=== PATIENT | female | born 1955 | race Caucasian/White ===

== ENCOUNTER 2025-07-06 09:53 | Outpatient (AMB) | payer MEDICARE, OTHER, SELFPAY ==
[2025-07-06 10:12] VITALS: BMI 24.0
--- NOTE | 2025-07-06 10:12 | HO.SPINEOV ---
Vital Signs 07/06/25 10:12 Height 5 ft 4 in Weight 140 lb BMI 24.0 Intake Visit Reasons: LBP Intake Note: Mrs. Mohan is here today c/o Low back pain that radiates down the right groin, knee and foot causing tingling. 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 Esposito Thank you for referring Janett to our office today. 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 She reports that it is worse on the right than on the left but it is bilateral. There is a component of pain that will radiate into her right groin, and toward her right knee. She will occasionally get some numbness of the top of her foot. The patient has been through copious amounts of conservative treatment through the years including injections at your office, multiple rounds of physical therapy as well the Celebrex. She does not report any meaningful improvement in the pain from the injections with the exception of possibly some epidural steroid injections that were done early in the process. Recent SI joint injection was no relief. Possibly some relief from the radiofrequency ablations at L4-5. The patient is frustrated because her quality of life is suffering. She tries to walk her dogs with her but can barely get through it. Sleeping, sitting and generally activity in any way shape perform will elicit the pain. PMH: History of rheumatoid arthritis which is managed with Arava and Celebrex, history of migraines, remote history of a TIA that has thought was possibly secondary to atrial fibrillation that was seen on a Holter monitor, so she was placed on Eliquis as a precaution. She has a mild peripheral neuropathy. History of left knee replacement, hysterectomy, right shoulder surgery, right thumb, right toe surgery. No history of cardiovascular disease, pulmonary, renal, liver, cancer or major abdominal surgeries. Social hx: Does not smoke, drink, occasionally uses marijuana gummies Medications: Celebrex, Cymbalta, Eliquis, Lipitor, Qulipta, Arava Allergies: None Physical exam: Awake alert oriented no acute distress, patient is able to ambulate in the hallways without any obvious antalgia, strength and reflexes are normal. She does have some pain with manipulation of the right hip. Imaging review: Lumbar MRI done at [facility] in February of 2025 reveals moderate to severe degenerative disc disease at L2-3 and L4-5. L4-5 I would rate his actually looking more toward the severe side of things. There is no significant central canal stenosis. There maybe some slight right sided L3-4 lateral recess stenosis. 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 She also has a component of radiculopathy down the right leg into the knee, groin and sometimes even into the top of the foot. She has been suffering with the pain now for several years, steadily getting worse, having a hard time doing anything for any length of time without it generating significant pain. Even sleeping at night can generate pain. The patient has been through extensive conservative management to no avail. Dr. Giles and I met with her and offered her an oblique lumbar interbody fusion at L4-5, as that level of the spine seems to localize best to her pain descriptions. We quoted success rate at 70%. The patient will have to stop her Eliquis 3 days prior to surgery, and we will stop her Arava prior to surgery as well. She will speak to her security clerk about when she will need to stop that in anticipation of surgery. We have tentatively scheduled her for September 18 The patient was given risk and benefits of [ ]surgery including but not limited to infection, hematoma, nerve injury, durotomy, weakness, bowel/bladder injury, persistent pain, and pseudoarthosis or instrumentation failure. We also discussed the option to continue with conservative treatment and patient wishes to proceed with surgery. They are aware they should stop NSAIDs 7 days prior to surgery. All questions were answered to the best of our ability. If there is anything about this patients medical history that we have overlooked or concerns you have about us proceeding with surgery we would appreciate any input you can offer Thank you for allowing us to care for your patient. The total time spent with this visit with this patient was 45 minutes reviewing history, physical exam, lumbar imaging review, and implementation of treatment plan or further diagnostic testing Gurwinder Giles MD,PhD [facility] Coding Level of Care Code New Pt Level 4 (76670) Diagnoses Back pain M54.9
--- OUTSIDE RECORDS SUMMARY | 2025-07-06 11:27 | XMS_ITS | Clinical Summary ---
Author Organization [facility] Address [address] [address] Phone Care Team Providers Care Pump Assembler Name Role Phone Keiry Au CNP Unavailable Keiry Au CNP Unavailable Keiry Au CNP Primary Care Provider Allergies No known active allergies Medications cholecalciferol , vitamin D3, 400 unit capsule Take 2 capsules by mouth daily. Active atogepant (QULIPTA) 60 mg tabletIndicatio ns:Intractable migraine with aura without status migrainosus Take 1 tablet (60 mg total) by mouth daily. 30 tablet 11 11/03/19 25 Active estradioL (VIVELLE-DOT) 0.025 mg/24 hr APPLY 1 PATCH TOPICALLY ONTO THE SKIN 2 TIMES A WEEK 24 patch 4 11/07/19 25 Active DULoxetine (CYMBALTA) 30 MG capsuleIndicati ons:Current mild episode of major depressive disorder without prior episode TAKE 1 CAPSULE BY MOUTH TWICE A DAY 180 capsule 3 12/05/19 25 Active SUMAtriptan (IMITREX) 100 MG tabletIndicatio ns:Migraine without status migrainosus, not intractable, unspecified migraine type Take 1 tablet (100 mg total) by mouth as needed for migraine. Can repeat dose in 2 hours if needed. Do not exceed 2 doses in a 24 hour period. Max dose 200mg/ day 27 tablet 3 03/12/20 25 Active traZODone (DESYREL) 50 MG tabletIndicatio ns:Psychophysio logic insomnia Take 1-2 tablets (50-100 mg total) by mouth nightly at bedtime. 180 tablet 05/04/20 25 Active celecoxib (CELEBREX) 200 MG capsule TAKE 1 CAPSULE BY MOUTH EVERY DAY 90 capsule 1 05/09/20 25 Active metoprolol tartrate (LOPRESSOR) 25 MG tabletIndicatio ns:Paroxysmal atrial fibrillation TAKE 1 TABLET (25 MG TOTAL) BY MOUTH DAILY NEEDED (HEART IRREGULARITY) . 90 tablet 1 05/28/20 25 Active apixaban (ELIQUIS) 5 mg tablet Take 1 tablet (5 mg total) by mouth 2 (two) times a day. 60 tablet 11 05/31/20 25 026 Active predniSONE (DELTASONE) 2.5 MG tabletIndicatio ns:Seropositive rheumatoid arthritis Take 4 tablets (10 mg total) by mouth daily with breakfast for 5 days, THEN 3 tablets (7.5 mg total) daily with breakfast for 10 days, THEN 2 tablets (5 mg total) daily with breakfast for 15 days. 80 tablet 06/06/20 25 025 Active atorvastatin (LIPITOR) 10 MG tablet Take 1 tablet (10 mg total) by mouth daily. 90 tablet 3 07/02/20 25 Active leflunomide (ARAVA) 20 MG tabletIndicatio ns:Seropositive rheumatoid arthritis Take 1 tablet (20 mg total) by mouth daily. 90 tablet 07/03/20 25 Active atorvastatin (LIPITOR) 10 MG tablet Take 1 tablet (10 mg total) by mouth daily. 90 tablet 03/13/20 25 025 Discontinued(R eorder) leflunomide (ARAVA) 20 MG tabletIndicatio ns:Seropositive rheumatoid arthritis Take once daily with food as follows: One half tab x4 days, then increase to 1 full tab thereafter 30 tablet 05/09/20 25 025 Discontinued leflunomide (ARAVA) 20 MG tabletIndicatio ns:Seropositive rheumatoid arthritis Take 1 tablet (20 mg total) by mouth daily. 30 tablet 06/08/20 25 025 Discontinued Active Problems Problem Noted Date Diagnosed Date Thumb pain, left 05/28/2025 Assessment & Plan (05/28/2025 10:43 AM EDT): Basilar left thumb pain present since at least 07/2024, worsening in severity. Exam findings today somewhat atypical with respect to site of maximal tenderness localized to the palmar aspect of the joint. Intra-articular steroid injection given chronicity and severity of pain. Will obtain updated plain film pending clinical course. Aortic ectasia 04/11/2025 Overview (04/11/2025): Ascending aortic ectasia, measuring 4.[address] chest in 03/2025 Mild sleep apnea 10/14/2024 Assessment & Plan (10/14/2024 6:34 AM EST): Continue CPAP. Cognitive changes 10/14/2024 Assessment & Plan (10/14/2024 6:39 AM EST): Patient has been struggling with some mild cognitive changes, for which she recently underwent follow up neuropsychiatric testing showing borderline MCI. She is starting treatment for sleep apnea, planning on addressing mild hearing loss with loan documentation specialist, and will do trial increase of antidepressant. We discussed repeating memory testing in 2 years as follow up. Patient verbalizes understanding and in agreement with plan. Episode of dizziness 10/14/2024 Assessment & Plan (10/14/2024 6:43 AM EST): Patient reporting 6-8 episodes of dizziness, feeling hot/sweaty, and nauseous while walking over the past year. Patient is very active on a regular basis, working out at the gym, without regular occurrence of these symptoms. She denies any association with fluid intake or eating habits. Cardiac work up in 06/2021 was unremarkable, including echocardiogram showing no aortic stenosis. Will monitor for now, but may consider repeating echocardiogram and carotid ultrasound evaluation if symptoms continuing. Sicca syndrome 02/03/2024 Overview (02/05/2025): ? Secondary Sjogren's SSA/SSB negative/negative 01/2024 Encounter for monitoring leflunomide therapy 01/2024 Overview (08/04/2024): Sarilumab 03/2021 to current Quant TB neg 01/2024 HBV/HCV NR 2015 Assessment & Plan (05/28/2025 10:44 AM EDT): Nausea mitigated by p.m. dosing. Premature to assess efficacy of leflunomide after only approximately 3 weeks. Patient is aware of need for routine monitoring labs in approximately 1 week. Assessment & Plan (08/04/2024 1:39 PM EST): No symptomatic AEs of current sarilumab regimen; routine monitoring labs due late July. Will update HBV / HCV serologies. Assessment & Plan (02/03/2024 2:17 PM EDT): No symptomatic AEs of sarilumab other than oral ulcers - patient declined rx for magic mouthwash today. Updated medication monitoring labs. Right buttock pain 10/14/2021 Assessment & Plan (10/14/2024 6:46 AM EST): Patient continues to struggling with right buttock pain. Will evaluate further with imaging of hip and SI joint; f/u once imaging results are back. Patient verbalizes understanding and in agreement with plan. Assessment & Plan (10/14/2021 7:09 PM EST): Piriformis syndrome versus SI joint dysfunction. We will plan on placing referral to physical therapy for further evaluation and treatment. If worsening or not improving with therapy, may consider further imaging and referral to physiatry. Hiatal hernia with GERD 07/11/2021 Assessment & Plan (10/14/2024 6:32 AM EST): Stable, off therapies. Continue to monitor and could consider starting H2 reza if symptoms are worsening. Assessment & Plan (10/01/2023 5:54 PM EST): Episodes of chest discomfort, likely related to GERD. EKG in office shows a NSR without ectopy or evidence of ischemia. Patient encouraged to start PPI, Prilosec 20 mg daily x 2 weeks. Take first thing in the morning on an empty stomach. Recommend staying upright after drinking coffee during meditation to see if this might reduce heartburn. F/u by phone or PG message in 2 weeks to discuss efficacy of Prilosec. Assessment & Plan (10/14/2021 7:10 PM EST): Recent bout of chest discomfort, eventually concluded to be related to GERD. Improving at this point and patient is weaning off PPI. Continue to monitor and follow-up with gastroenterology for any worsening issues. Current mild episode of major depressive disorde r 09/27/2018 Assessment & Plan (10/14/2024 6:31 AM EST): Some depressed mood, although overall stable. Will do trial of increased Cymbalta 60 mg in the morning and 30 mg in the evening. If no benefit within 1-2 months, could always decrease back down to 30 mg twice daily. Patient verbalizes understanding and in agreement with plan. Assessment & Plan (10/01/2023 5:45 PM EST): Stable on current therapies. Continue Cymbalta at current therapies; trazodone for sleep. Assessment & Plan (09/11/2022 10:36 AM EST): Stable on current therapies. Continue Cymbalta at current therapies. Assessment & Plan (10/14/2021 7:08 PM EST): Stable on current therapies. Continue Cymbalta at current therapies. Assessment & Plan (10/08/2020 6:15 PM EST): Stable on current therapies. Continue Cymbalta at current therapies. Assessment & Plan (10/04/2019 12:43 PM EST): Stable on current therapies. Continue Cymbalta at current therapies. Assessment & Plan (09/27/2018 2:00 PM EST): Stable on current therapies. Continue Cymbalta at current therapies. Encounter for Medicare annual wellness exam 08/31 Assessment & Plan (10/14/2024 6:46 AM EST): Generally well female, despite multiple chronic conditions. Up to date on colonoscopy, bone density testing, and immunizations. Mammogram scheduled for next month. No further pap smears indicated. Advised on healthy diet, regular exercise, and to consume at least 1200 mg Calcium and 2000 iU Vitamin D daily by diet and/or supplementation. Specialists: Dr. Mercado of rheumatology; Dr. Mcdonough of neurology Assessment & Plan (10/01/2023 5:46 PM EST): Generally well female, despite multiple chronic conditions. Up to date on colonoscopy, bone density testing, and immunizations. Follow up mammogram/ultrasound scheduled for next month. No further pap smears indicated. Advised on healthy diet, regular exercise, and to consume at least 1200 mg Calcium and 2000 iU Vitamin D daily by diet and/or supplementation. Assessment & Plan (10/14/2021 7:10 PM EST): Generally well female, despite multiple chronic conditions. Up to date on mammogram, colonoscopy, bone density testing, and immunizations (did discuss that getting a fourth dose of COVID-19 vaccine would be recommended). No further pap smears indicated. Advised on healthy diet, regular exercise, and to consume at least 1200 mg Calcium and 2000 iU Vitamin D daily by diet and/or supplementation. Assessment & Plan (10/08/2020 6:16 PM EST): Generally well female, despite multiple chronic conditions. Up to date on mammogram, colonoscopy, bone density testing, and immunizations. No further pap smears indicated. Advised on healthy diet, regular exercise, and to consume at least 1200 mg Calcium and 2000 iU Vitamin D daily by diet and/or supplementation. Assessment & Plan (10/04/2019 12:30 PM EST): Generally well female, despite multiple chronic conditions. Up to date on mammogram (due in 07/2020), colonoscopy (due in 07/2020), bone density testing (due in 01/2020), and immunizations. No further pap smears indicated. Advised on healthy diet, regular exercise, and to consume at least 1200 mg Calcium and 2000 iU Vitamin D daily by diet and/or supplementation. Assessment & Plan (09/27/2018 2:00 PM EST): Generally well female, despite multiple chronic conditions. Up to date on mammogram, colonoscopy, bone density testing, and immunizations. No further pap smears indicated. Advised on healthy diet, regular exercise, and to consume at least 1200 mg Calcium and 2000 iU Vitamin D daily by diet and/or supplementation. Osteopenia 08/31/2017 Assessment & Plan (10/14/2024 6:26 AM EST): Overall stable with calcium and Vitamin D supplementation, regular weight bearing exercise. Continue Estradiol for bone health. Repeat bone density in 1-2 years. Assessment & Plan (10/01/2023 5:45 PM EST): Encouraged Calcium and Vitamin D supplementation, regular weight bearing exercise. Continue Estradiol. Repeat bone density in 2-3 years. Assessment & Plan (09/11/2022 10:37 AM EST): Encouraged Calcium and Vitamin D supplementation, regular weight bearing exercise. Continue Estradiol. Repeat bone density testing later this month. Assessment & Plan (10/14/2021 7:09 PM EST): Encouraged Calcium and Vitamin D supplementation, regular weight bearing exercise. Continue Estradiol. Repeat bone density testing in 03/2022. If stable, will plan to extend to every 3 year bone density monitoring. Assessment & Plan (10/08/2020 6:15 PM EST): Encouraged Calcium and Vitamin D supplementation, regular weight bearing exercise. Continue Estradiol. Repeat bone density testing in 3 years. Assessment & Plan (10/04/2019 12:44 PM EST): Encouraged Calcium and Vitamin D supplementation, regular weight bearing exercise. Continue Estradiol. Repeat bone density testing in 01/2020. Assessment & Plan (09/27/2018 2:03 PM EST): Encouraged Calcium and Vitamin D supplementation, regular weight bearing exercise. Continue Estradiol. Status post left partial knee replacement 2017 Paroxysmal atrial fibrillation 11/17/2012 Overview (10/20/2014): Atrial fibrillation Assessment & Plan (05/04/2025 6:31 PM EDT): Patient presents to the office with new onset paroxysmal atrial fibrillation, although she did have some episodes many years ago due to dehydration. Patient appears to be in a normal rhythm based on auscultation in the office today. She was placed on dronedarone for rhythm control, although she has developed a pretty significant side effects of nausea. At this point, would recommend discontinuing the dronedarone and providing a course of as needed metoprolol tartrate to be used as needed for sustained episodes of atrial fibrillation. We may need to consider another rate/rhythm controlling option based on frequency of atrial fibrillation noted on her MCT, but we are still awaiting the results of her monitor. Patient instructed on as needed metoprolol use, and potential side effects/adverse effects. Continue Eliquis 5 mg twice daily, with [id number] score of 4, so anticoagulation would be recommended (age, sex, history of TIA). Patient is working on getting established with [facility] cardiology, in the meantime we will order echocardiogram to evaluate for structural causes of atrial fibrillation. Patient verbalizes understanding and in agreement with plan. Migraine 07/02/2011 Overview (10/20/2014): migraines Assessment & Plan (10/14/2024 6:28 AM EST): Ongoing issues with frequent migraines, for which patient is taking Ajovy for prevention. Imitrex for abortive therapies. Continue working with Dr. Mcdonough of neurology for migraine managements. Assessment & Plan (10/01/2023 5:44 PM EST): Stable on current therapies of monthly Emgality and amitriptyline at bedtime. Imitrex for abortive therapy is with good effect. Continue current regimen and f/u with Dr. Mcdonough of neurology. Assessment & Plan (09/11/2022 10:36 AM EST): Stable on current therapies of monthly Emgality and amitriptyline at bedtime. Imitrex for abortive therapy is with good effect. Continue current regimen and f/u with Dr. Mcdonough of neurology. Assessment & Plan (10/14/2021 7:08 PM EST): Much improved with current therapies of monthly Emgality and amitriptyline at bedtime. Imitrex for abortive therapy is with good effect. Continue current regimen and f/u with Dr. Mcdonough of neurology. Assessment & Plan (05/29/2021 6:31 PM EDT): No current migraine symptoms Assessment & Plan (10/08/2020 6:14 PM EST): Much improved with current therapies of Emgality and Amitriptyline at bedtime. Continue current regimen and f/u with Dr. Mcdonough of neurology. Assessment & Plan (10/04/2019 12:43 PM EST): Worsening migraines over past year, without improvement despite multiple preventative therapies. Some frequency of migraines likely related to rebound effect of Imitrex. Follow up with Dr. Mcdonough of neurology. Assessment & Plan (09/27/2018 2:02 PM EST): Worsening migraines over past year, although recently started on Aimovig for preventative therapies. Continue Imitrex as needed. Regular follow up by Dr. Mcdonough of neurology. 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 01/2023 and dc'd d/t neutropenia Upadacitinib 09/2024 to 03/2025 -persistent / recurrent neutropenia. Assessment & Plan (05/08/2025 2:17 PM EDT): More profound fatigue, with 60 to 90 minutes morning stiffness, now off Biju inhibitor approximately 2 weeks due to persistent/recurrent neutropenia. There is no synovitis on exam today. Given the course of her disease and medication history to date, she is at risk of progressively active disease if she remains off treatment long-term. We discussed options today, including implantation of the newly approved set point device, as well as leflunomide. She will review information regarding the set point device, and will contact me if she would like to proceed with referral to [facility] for implantation. Otherwise, we will proceed with leflunomide. Assessment & Plan (02/05/2025 1:46 PM EDT): Overall low disease activity despite 1 hour of morning stiffness, which is unchanged. No current clinical evidence concerning for extra-articular disease other than baseline mild peripheral sensory neuropathy. No current indication to change upadacitinib to alternative DMARD. Assessment & Plan (10/14/2024 6:25 AM EST): Continue current regimen of Kevzara and Celebrex, with occasional Tylenol for pain. Followed closely by Dr. Mercado, particularly in relation to neutropenia related to immunosuppressant use. Patient is experiencing some left wrist pain from RA flare, but is managing conservatively and will f/u with rheumatology as needed. Assessment & Plan (08/04/2024 1:37 PM EST): Overall low disease activity on current regimen of sarilumab every 3 wks, which has not resulted in significant neutropenia. Recent flare (last wk) noted but this resolved within 3 days when she increased her celecoxib dose; no flares prior to that for at least several years. She has been able to maintain good functional capacity and engages in regular aerobic exercise. Declined intra-articular steroid injection to both right shoulder and left 1st CMC today. Given both current clinical picture and above-documented medication hx to date, I d/w her that I strongly recommend she continue on sarilumab rather than switching to a biosimilar agent of a drug she has previously tried and failed due to planned 2024 change in her insurance company formulary. I have drafted a letter in this regard. Assessment & Plan (02/03/2024 2:18 PM EDT): One hour AM stiffness with otherwise overall low disease activity on current regimen of sarilumab and celecoxib, w/o e/o extra-articular disease. Sarilumab dosing limited to every 3 wks due to neutropenia with more frequent dosing. Records from former instrument lens grinder reviewed briefly today; will obtain baseline anti-CCP and updated inflammatory markers. Co-morbid secondary osteoarthritis of multiple joints, notably MTPs and right wrist. Assessment & Plan (10/01/2023 5:44 PM EST): Relatively stable on current regimen of Kevzara and Celebrex, although she would like to transition care more locally. Referral placed to Dr. Mercado of [facility]. Assessment & Plan (09/11/2022 10:36 AM EST): Currently taking Kevzara and Celebrex. Closely monitored by Dr. Cain of rheumatology. Assessment & Plan (10/14/2021 7:08 PM EST): Stable, currently taking Kevzara and Celebrex. Closely monitored by Dr. Cain of rheumatology. Assessment & Plan (10/08/2020 6:14 PM EST): Recently worsening issues with RA flare related difficulty finding immunobiologic that is manages her symptoms without adverse effects. Hopeful that Rituximab may be more beneficial that Xeljanz. Continue close monitoring by Dr. Lane. We did discuss potential referral to [facility] or [facility] but for now she would like to continue with local instrument lens grinder. Assessment & Plan (10/04/2019 12:42 PM EST): Stable on current therapies, although recently worsening neutropenia requiring decreasing frequency of biologic agent. Repeat complete blood count next month and f/u with Dr. Lane as scheduled. Assessment & Plan (09/27/2018 2:03 PM EST): Stable on current therapies. Continue f/u with Dr. Lane as scheduled. Assessment & Plan (08/31/2018 11:20 AM EST): Hold Acterma until cellulitis of toe is ruled out. F/u with Dr. Lane of rheumatology as scheduled. Resolved Problems Problem Noted Date Diagnosed Date Resolved Date Cerumen impaction 11/01/2023 10/14/2024 Preop examination 09/11/2022 10/01/2023 Assessment & Plan (09/11/2022 10:51 AM EST): Generally well female. EKG in office shows a NSR without ectopy or evidence of ischemia. Lab work pending. Relatively safe and low risk for complications related to surgery and general/local anesthesia. Will fax paperwork to Dr. Schroeder. Chest pain 05/29/2021 10/14/2021 Assessment & Plan (07/11/2021 1:55 PM EST): She reports continued chest pain despite having an emergency room visit and having negative cardiac enzymes and normal EKG. She did have an exercise tolerance stress test which was unremarkable however she did have some chest pain during her test which made it abnormal. Seeing as how she continues to have chest discomfort with exertion particularly with being at the gym and climbing hills in addition to when she lays flat we will perform a nuclear exercise stress test to rule out any ischemia. I have asked her to continue to take Pepcid nightly for the next 2 weeks to see if this helps with any of her discomfort in the meantime while she is waiting for her stress test. I have also asked her to hold off on exercising until her test has been completed. Assessment & Plan (05/30/2021 10:50 AM EDT): Hours of chest pain with negative cardiac enzymes and normal EKG, accounts adjustable clerk felt patient's pain was noncardiac in etiology. Questions whether this may be musculoskeletal. Exercise tolerance test unremarkable. If patient has exertional chest symptoms could get a more sensitive test like a stress echo or nuclear stress test and accounts adjustable clerk has arranged for follow-up in his office in 1 month Radicular pain of right lower extremity 10/04/2019 10/14/2021 Assessment & Plan (10/04/2019 12:45 PM EST): Radicular pain of right knee and lower leg. Slow improvements with SI joint injection and physical therapy. Follow up with ALEXSANDER Mortensen at [facility] as needed. Left shoulder pain 11/10/2018 0 Cellulitis of toe of right foot 08/31/2018 09/27/2018 Assessment & Plan (08/31/2018 11:20 AM EST): History of right great toe cellulitis, treated by instrument lens grinder with Doxycycline. Residual symptoms of redness and tenderness of area. Will do referral to transition mgr rn for urgent appointment, particularly due to history of immunosuppressant use for RA. F/u in office as needed. Pt verbalizes understanding and in agreement with plan. PAT (paroxysmal atrial tachycardia) 08/31/2017 09/11/2022 Assessment & Plan (10/14/2021 7:07 PM EST): Stable, off therapies. No recent episodes of tachycardia reported. Assessment & Plan (05/30/2021 10:51 AM EDT): Noted history in the chart from 2014 of atrial fibrillation No evidence of arrhythmia on phototypesetting equipment monitor Assessment & Plan (10/08/2020 6:10 PM EST): Stable, off therapies. No recent episodes of tachycardia reported. Assessment & Plan (10/04/2019 12:40 PM EST): Stable, off therapies. No recent episodes of tachycardia reported. Assessment & Plan (09/27/2018 2:05 PM EST): Stable, off therapies. Depression with anxiety 08/31/201709/30 Left knee pain 08/31/2017 09/27/2018 Dyslipidemia 11/17/2012 10/14/2021 Overview (10/20/2014): Dyslipidemia Assessment & Plan (05/30/2021 10:51 AM EDT): LDL borderline at 104, follow-up with cardiology, HDL 77. Assessment & Plan (10/08/2020 6:11 PM EST): Recent lipid panel normal, with total cholesterol of 228 and HDLs of 80. Overall cardiovascular risk is low. Continue regular exercise and healthy eating. Assessment & Plan (10/04/2019 12:41 PM EST): Most recent lipid panel from 02/2019. Elevated LDLs and total cholesterol, but also with elevated HDLs. Only risk factor is her autoimmune rheumatoid arthritis. No stigmata of disease. The 10-year ASCVD risk score (Erieville BREANNA Jr., et al., 2013) is: 3.4% Values used to calculate the score: Age: 64 years Sex: Female Is Non- : No Diabetic: No Tobacco smoker: No Systolic Blood Pressure: 112 mmHg Is BP treated: No HDL Cholesterol: 92 mg/dL Total Cholesterol: 246 mg/dL Assessment & Plan (09/27/2018 2:04 PM EST): Elevated LDLs and total cholesterol, but also with elevated HDLs. Only risk factor is her autoimmune rheumatoid arthritis. No stigmata of disease. ASCVD/AHA risk ratio of 3.3%. Repeat fasting lipid in 6 months. Peripheral nerve disease 07/02/201112/2019 Overview (08/31/2017): peripheral neuropathy Assessment & Plan (09/27/2018 2:01 PM EST): Stable, off therapies. Pt encouraged to check feet regularly for open sores or wounds. Articular cartilage disorder of knee 09/27/2018 Encounters Date Type Department Care Team Description 07/02/2025 Refill [facility] Rheumatology [address] [place] [address] Smiley De Leon MD Med Change Request 07/02/2025 Refill [facility] Internal Medicine [address] [place] [address] [address] [place] [address] Ghazala De La Rosa CMA Medication Refill (Atorvastatin) 06/19/2025 12:30 PM EDT Office Visit [facility] Neurology [address] [place] [address] [place] [address] Arnaldo Mcdonough MD Intractable migraine with aura without status migrainosus (Primary Dx); Amaurosis fugax; Atrial fibrillation, unspecified type 06/13/2025 Orders Only [facility] Rheumatology [address] [place] [address] Carla Mercado MD, MPH Encounter for monitoring leflunomide therapy (Primary Dx) 06/08/2025 9:18 AM EDT - 06/08/2025 11:59 PM EDT Hospital Encounter [facility] Echo Lab [address] [place] [address] Keiry Au CNP Discharge Disposition: Home or Self Care 06/07/2025 7:54 AM EDT - 06/07/2025 11:59 PM EDT Hospital Encounter [address] [address] Keiry Au CNP Discharge Disposition: Home or Self Care 06/07/2025 Refill [facility] Rheumatology [address] [place] [address] [place] [address] Carla Mercado MD, MPH Medication Refill 05/31/2025 Refill [facility] Internal Medicine [address] [address] Ghazala De La Rosa CMA Medication Refill (Eliquis) 05/30/2025 1:24 PM EDT - 05/30/2025 4:02 PM EDT Emergency [facility] Emergency [address] [place] [address] Jean Garcia MD Discharge Disposition: Home or Self Care 05/30/2025 Telephone [facility] Internal Medicine [address] [address] Keiry Au CNP [place] SOB 05/28/2025 10:10 AM EDT Office Visit [facility] Rheumatology [address] [place] [address] [place] [address] Carla Mercado MD, MPH Thumb pain, left (Primary Dx); Encounter for monitoring leflunomide therapy 05/28/2025 Telephone [facility] Rheumatology [address] [place] [address] Carla Mercado MD, MPH Injections 05/27/2025 Refill [facility] Internal Medicine [address] [address] Keiry Au CNP Med Change Request 05/09/2025 Refill [facility] Rheumatology [address] [place] [address] Carla Mercado MD, MPH Medication Refill 05/08/2025 1:40 PM EDT Office Visit [facility] Rheumatology [address] [place] [address] Carla Mercado MD, MPH Seropositive rheumatoid arthritis (Primary Dx) 05/07/2025 Orders Only [facility] Internal Medicine [address] [address] Taylor Lockett MD 05/04/2025 4:40 PM EDT Office Visit [facility] Internal Medicine [address] [place] [address] Keiry Au CNP Paroxysmal atrial fibrillation (Primary Dx); Medication side effect; Psychophysiologic insomnia 05/04/2025 Procedure Pass [facility] Echo Lab [address] [place] [address] 05/02/2025 Telephone [facility] Internal Medicine [address] [address] Keiry Au CNP IN E[place] yesterday 05/01/2025 5:41 PM EDT - 05/01/2025 9:33 PM EDT Emergency [facility] Emergency [address] [place] [address] Nelson Crowder MD Discharge Disposition: Home or Self Care 05/01/2025 Telephone [facility] Internal Medicine [address] [address] Keiry Au, KAY [place] SOB 05/01/2025 Orders Only [facility] Internal Medicine [address] [place] [address] Taylor Lockett MD 04/26/2025 Telephone [facility] Rheumatology [address] [place] [address] Carla Mercado MD, MPH Appointment 04/19/2025 8:11 AM EDT - 04/19/2025 11:59 PM EDT Hospital Encounter [address] [address] Carla Mercado MD, MPH Discharge Disposition: Home or Self Care 04/17/2025 Orders Only [facility] Internal Medicine [address] [place] [address] Taylor Lockett MD 2025 Telephone [facility] Internal Medicine [address] [place] [address] Keiry Au, KAY [employer] 04/12/2025 Orders Only [facility] Internal Medicine [address] [place] [address] Taylor Lockett MD 04/11/2025 Telephone [facility] Internal Medicine [address] [place] [address] Keiry Au, KAY 04/10/2025 Orders Only [facility] Internal Medicine [address] [place] [address] Taylor Lockett MD 04/09/2025 Telephone [facility] Rheumatology [address] [place] [address] Carla Mercado MD, MPH 04/06/2025 7:56 PM EDT - 04/06/2025 11:59 PM EDT Hospital Encounter [facility] Scan - [facility] [address] [place] [address] Hanna Carlson, APPLICATIONS SYSTEM ANALYST Discharge Disposition: Home or Self Care 03/30/2025 Procedure Pass [facility] Scan - [facility] [address] [place] [address] from Last 3 Months Immunizations Immunization Administration Dates Next Due COVID-19 (Pre-06/21) Moderna Vaccine, mRNA, PF 10/22/2020,09/24/2020 Hepatitis A, Adult 08/06/2016 INFLUENZA, SPLIT VIRUS, TRIVALENT PF 05/22/2015 INFLUENZA, SPLIT VIRUS, TRIV ALENT W/ PRESERVATIVE IM 05/23/2013 Influenza High-Dose Trivalen t Preservative Free IM 06/12/2024,05/16/2021,05/15/2020 Influenza Nasal, Unspecified Formulation 05/09/2014 Influenza Quadrivalent Adjuv anted Preservative Free IM 06/16/2023,06/10/2022 Influenza Quadrivalent Prese rvative Free IM 04/19/2018 Influenza Quadrivalent w/ Pr eservative IM 05/12/2017,05/15/2016 Influenza Recombinant Mauricio valent Preservative Free IM 05/22/2019 Influenza Trivalent Adjuvant ed Preservative free IM 06/05/2025 Influenza, Unspecified Formulation 05/22,05/17/2013,06/04/2011,07/31,10/10/2008(Deferred: Patient Decision) Pneumococcal conjugate PCV13 10/10/2014 Pneumococcal conjugate PCV20 09/11/2022 Pneumococcal polysaccharide PPSV23 08/31,07/17/2009,10/10/2008(Defer red: Patient Decision),07/30/2003,07/30/2003 Pneumococcal, Unspecified Formulation 07/17/2009 ,07/30/2003 RSV Vaccine (monovalent, adjuvanted) 05/25/2023 Td (adult),2 Lf Tetanus Toxo id, PF, Adsorbed 11/28/2006 Tdap 08/31/2017 Typhoid, ViCPs 08/06/2016 Zoster recombinant 12/26/2018,10/27/2018 Family History Medical History Relation Comments Rheumatoid arthritis Brother 1 sepsis Brother 1 Alcohol abuse Brother 2 COPD Brother 2 No Known Problems Brother 3 Alzheimer's disease Father CABG Father Heart disease Father Lung cancer Mother Smoker Alzheimer's disease Paternal Grandmother Hypogonadism Son Osteoporosis Son Relation Status Comments Brother 1 Brother 2 Brother 3 Alive Father (Age 89) Maternal Grandfather Maternal Grandmother Mother (Age 68) Paternal Grandfather Paternal Grandmother Son Alive Social History Tobacco Use Types Packs/Day Years Used Date Smoking Tobacco: Former Cigarettes 0.3 17 0 10/04/1968 - 10/04/1985 Smokeless Tobacco: Never Tobacco Cessation:Counseling Given: Not Answered Alcohol Use Standard Drinks/Week Comments Yes 14 (1 standard drink = 0.6 oz pu re alcohol) 2 drinks per day Education Answer Date Recorded Are you interested in more education? Not on janelle e 12/24/2022 Are you concerned about learning? Not on file 12/24/2022 No 12/24/2022 No 12/24/2022 Food Answer Date Recorded Within the past 6 months we worried whether our food would run out before we got money to buy more. Never True 05/30/2025 Within the past 6 months the food we bought just didn't last and we didn't have enough money to get more. Never True Residential Stability Answer Date Recor ded What is your housing situation today? I have geronimo sing 05/30/2025 How many times have you move d in the past 12 months? Zero (I did not move) 05/30/2025 Paying for Meds Answer Date Recorded Do you have trouble paying for medicines? No 05/30/2025 Paying Utility Bills Answer Date Record ed Do you have trouble paying your heating or elect ricity bill? No 05/30/2025 Transportation Answer Date Recorded Has the lack of transportati on kept you from medical appointments or from getting medications? No 05/30/2025 Digital Access Answer Date Recorded No 05/30/2025 Yes 05/30/2025 Do you have reliable internet access at home? Ye s 05/30/2025 Do you have a device (e.g., phone, tablet, computer) with a working camera? Yes 05/30/2025 Intimate Partner Violence Answer Date R ecorded Are you denied basic needs s uch as food, clothing, or medical care? No 05/30/2025 In the past 12 months have y ou been in a relationship with a person who hurts, threatens, or tries to control you? No 05/30/2025 Are you denied basic needs s uch as food, clothing, or medical care? No 05/30/2025 In the past 12 months have y ou been in a relationship with a person who hurts, threatens, or tries to control you? No 05/30/2025 Education Answer Date Recorded What is the highest level of school you have completed or the highest degree you have received? 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 Not on file Not on file Not on file Last Filed Vital Signs Vital Sign Reading Time Taken Comments Blood Pressure 125/72 05/30/2025 3:30 PM EDT Pulse 56 05/30/2025 3:30 PM EDT Temperature 36.4 C (97.6 F) 05/30/2025 10:23 AM EDT Respiratory Rate 20 05/30/2025 3:30 PM EDT Oxygen Saturation 100% 05/30/2025 3:30 PM EDT Inhaled Oxygen Concentration - - Weight 67.1 kg (148 lb) 05/30/2025 2:11 PM EDT Height 162.6 cm (5' 4 ) 05/30/2025 2:11 PM EDT Body Mass Index 25.4 05/30/2025 2:11 PM EDT Plan of Treatment Upcoming Encounters Date Type Department Care Team (Late st Contact Info) Description 08/07/2025 1:40 PM EST Office Visit [facility] Rheumatology [address] [place] [address] [place] [address] Carla Mercado MD, MPH [address] [facility], [address] [place] [address] [email or web address] 12/27/2025 1:00 PM EDT Office Visit [facility] Neurology [address] [place] [address] [place] [address] Arnaldo Mcdonough MD [address] [place] [address], [address] [place] [address] [email or web address] Health Maintenance Due Date Last Done Comments COLOGUARD 2000 FIT TEST 2000 FOBT 2000 SIGMOIDOSCOPY 2000 VIRTUAL COLONOSCOPY 2000 COVID-19 VACCINE ( season) 2025 06/05/2025, 11/13/2024, 06/12/2024, Additional history exists DEPRESSION SCREENING 10/06/2025 10/06/2024 CREATININE LEVEL 06/07/2026 06/07/2025, 08/2024, 05/01/2025, Additional history exists MAMMOGRAM 11/17/2026 11/17/2024, 03/2024, 09/02/2022, Additional history exists Adult Td,Tdap Booster 08/31/2027 08/31/2017, 007 LIPID PANEL 06/07/2030 06/07/2025, 07/30, 10/11/2023, Additional history exists COLONOSCOPY 09/23/2030 09/23/2020, 08/2009, 07/30/2010 COLORECTAL CANCER SCREENING 09/23/2030 HEPATITIS A VACCINES Aged Out 08/06/2016 No long er eligible based on patient's age to complete this topic ZOSTER VACCINES Completed 12/26/2018, 10/27/2018 PNEUMOCOCCAL VACCINES (50+ years) Completed 09/11/2022, 08/31/2017, 10/10/2014, Additional history exists OSTEOPOROSIS SCREENING INITIAL (ONE-TIME) Completed 09/15/2022, 04/01/2020, 02/23/2018 RSV VACCINE Completed 05/25/2023 SMOKING STATUS SCREENING (Once After 26 Yrs) Completed 05/04/2025 INFLUENZA VACCINE Completed 06/05/2025, , 06/16/2023, Additional history exists HIB VACCINES Aged Out No longer eligi ble based on patient's age to complete this topic MENINGOCOCCAL VACCINES (ACWY) Aged Out No longer eligible based on patient's age to complete this topic MENINGOCOCCAL VACCINES (B) Aged Out N o longer eligible based on patient's age to complete this topic Medical Devices Implanted - Out of Service Type Area Laboratory Worker Device Identifier Shelf Expiration Date Model / Serial / Lot Total Knee Left: Knee Procedures Procedure Name Priority Date/Time Associated Diagnosis Comments CBC AND DIFFERENTIAL Routine 07/04/2025 7:54 AM EST Encounter for monitoring leflunomide therapy CBC AND DIFFERENTIAL Routine 07/04/2025 7:54 AM EST Encounter for monitoring leflunomide therapy TTE COMPREHENSIVE Routine 06/08/2025 10: 23 AM EDT Paroxysmal atrial fibrillation LIPID PANEL Routine 06/07/2025 7:55 AM EDT Amaurosis fugax SEDIMENTATION RATE (ESR) Routine 06/07/2025 7:55 AM EDT Seropositive rheumatoid arthritis C-REACTIVE PROTEIN (CRP) Routine 06/07/2025 7:55 AM EDT Seropositive rheumatoid arthritis COMPREHENSIVE METABOLIC PANEL (CMP) Routine 06/07/2025 7:55 AM EDT Encounter for monitoring leflunomide therapy CREATINE KINASE (CK) Routine 06/07/2025 7:55 AM EDT Encounter for monitoring leflunomide therapy CBC AND DIFFERENTIAL Routine 06/07/2025 7:55 AM EDT Neutropenia, drug-induced D-DIMER STAT 05/30/2025 2:48 PM EDT LAB ADD ON STAT 05/30/2025 2:03 PM EDT TROPONIN STAT 05/30/2025 11:34 AM EDT XR CHEST PA AND LATERAL 2 VIEWS STAT 05/30/2025 11:14 AM EDT NT-PROBNP STAT 05/30/2025 10:43 AM EDT TROPONIN STAT 05/30/2025 10:43 AM EDT BASIC METABOLIC PANEL (BMP) STAT 05/30/2025 10:43 AM EDT CBC AND DIFFERENTIAL STAT 05/30/2025 10:43 AM EDT ECG 12-LEAD STAT 05/30/2025 10:23 AM EDT MCT (MOBILE CARDIAC TELEMETRY) Routine 05/09/2025 3:57 PM EDT Amaurosis fugax OUTSIDE ECG Routine 05/07/2025 4:03 PM EDT D-DIMER STAT 05/01/2025 7:42 PM EDT XR CHEST PA AND LATERAL 2 VIEWS Routine 05/01/2025 7:37 PM EDT TROPONIN STAT 05/01/2025 4:34 PM EDT TSH WITH REFLEX Routine 05/01/2025 3:33 PM EDT NT-PROBNP Routine 05/01/2025 3:33 PM EDT MAGNESIUM Routine 05/01/2025 3:33 PM EDT TROPONIN STAT 05/01/2025 3:33 PM EDT BASIC METABOLIC PANEL (BMP) STAT 05/01/2025 3:33 PM EDT CBC AND DIFFERENTIAL STAT 05/01/2025 3:33 PM EDT ECG 12-LEAD STAT 05/01/2025 2:41 PM EDT OUTSIDE ECG Routine 05/01/2025 11:46 AM EDT CBC AND DIFFERENTIAL Routine 04/19/2025 8:11 AM EDT 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 OUTSIDE ECG Routine 04/17/2025 7:38 AM EDT OUTSIDE ECG Routine 04/12/2025 11:28 AM EDT OUTSIDE ECG Routine 04/10/2025 11:[address] CHEST WITH CONTRAST Routine 04/06/2025 8:11 PM EDT Persistent cough BI MAMMOGRAM SCREENING WITH TOMOSYNTHESIS WITH CAD (BILATERAL) Routine 11/17/2024 4:09 PM EDT Visit for screening mammogram BD DXA AXIAL (SPINE) WITH HIP Routine 09/15/2022 2:54 PM EST Osteopenia of right hip ENDOSCOPY, COLON 09/23/2020 10:1 2 AM EST from Last 3 Months or Most Recently Relevant to Health Maintenance Results * (ABNORMAL) CBC and Differential (07/04/2025 7:54 AM EST) WBC 3.17(L) 4.00 - 11.00 K/uL 07/04/2025 11:33 AM [facility] RBC 4.66 4.00 - 5.20 M/uL 07/04/2025 11:33 AM [facility] Hemoglobin 13.6 12.0 - 16.0 g/dL 07/04/2025 11:33 AM [facility] Hematocrit 42.0 36.0 - 46.0 % 07/04/2025 11:33 AM [facility] MCV 90.1 80.0 - 100.0 fL 07/04/2025 11:33 AM [facility] MCH 29.2 27.0 - 31.0 pg 07/04/2025 11:33 AM [facility] MCHC 32.4 32.0 - 36.0 g/dL 07/04/2025 11:33 AM [facility] MPV 10.5 8.4 - 12.0 fL 07/04/2025 11:33 AM [facility] RDW-CV 12.5 11.5 - 14.5 % 07/04/2025 11:33 AM [facility] PLT 164 150 - 450 K/uL 07/04/2025 11:33 AM [facility] Neutrophils 52.4 % 07/04/2025 11:33 AM [facility] Lymphocytes 31.9 % 07/04/2025 11:33 AM [facility] Monocytes 13.2 % 07/04/2025 11:33 AM [facility] Eosinophils 1.9 % 07/04/2025 11:33 AM [facility] Basophils 0.6 % 07/04/2025 11:33 AM [facility] Imm Grans 0.0 % 07/04/2025 11:33 AM [facility] NRBC 0.0 <=0.0 /100 WBCs 07/04/2025 11:33 AM [facility] Absolute Neutrophils 1.66(L) 1.92 - 7.60 K/uL 07/04/2025 11:33 AM [facility] Comment:The reference range for individuals with the Rai null phenotype (Fy(a-b-)) is 1.21-5.39 K/uL. Absolute Lymphocytes 1.01 0.72 - 4.10 K/uL 07/04/2025 11:33 AM [facility] Absolute Monocytes 0.42 0.16 - 1.10 K/uL 07/04/2025 11:33 AM [facility] Absolute Eosinophils 0.06 0.00 - 0.50 K/uL 07/04/2025 11:33 AM [facility] Absolute Basophils 0.02 0.00 - 0.15 K/uL 07/04/2025 11:33 AM [facility] Absolute Imm Grans 0.00 0.00 - 0.09 K/uL 07/04/2025 11:33 AM [facility] Absolute NRBC 0.00 <=0.00 K cells/uL 07/04/2025 11:33 AM [facility] Absolute Neutrophils 1.66(L) 1.92 - 7.60 K/uL 07/04/2025 11:33 AM [facility] Comment:Automated cell count . Manual ANC may differ if performed. Diff Type Auto 07/04/2025 11:33 AM EST [facility] Blood Venipuncture / Unknown 07/04/2025 7:54 AM EST 07/04/2025 7:54 AM EST us Carla Mercado MD, MPH LAB BLOOD BKR ORDERABLES Final Result [address] [address] * TTE COMPREHENSIVE (06/08/2025 10:23 AM EDT) Body Surface Area 1.72 m2 Height 163 cm Weight 67 kg Systolic BP 125 mmHg Diastolic BP 72 mmHg Left Atrium Dimension Anterior-Posterior 35 15 - 40 mm Aortic Valve Regurgitation Pressure Half Time 702 ms Aortic Valve Peak Velocity 1.3 m/s Aortic Valve Peak Gradient 7 mmHg Aortic Valve Mean Gradient 4 mmHg Aortic Valve Time Velocity Integral 280.0 mm Aortic Arch Diameter 33 mm Aortic Sinus Diameter 30 <40 mm Ascending Aorta Diameter 34 <36 mm Inferior Vena Cava Diameter 18 <21 mm Interventricular Septum Thickness 7 6 - 11 mm Left Ventricle Internal Diameter End Diastole 44 37 - 52 mm Left Ventricle Internal Diameter End Systole 32 <35 mm Left Ventricular Outflow Tract Diameter 19.0 mm LVOT VTI REST 226.0 mm Left Ventricular Outflow Tract Velocity 1.1 m/s Left Ventricular Outflow Tract Gradient at Rest 5 mmHg Left Ventricular Posterior Wall Thickness 11 6 - 11 mm Left Ventricle Ea Lateral Wave Speed 7.4 cm/s Left Ventricle Ea Septal Wave Speed 10.4 cm/s Mitral Valve Deceleration Time 208 ms Ejection Fraction 55 50 - 75 Percent Left Ventricle A Wave Speed 65.5 cm/s Left Ventricle E Wave Speed 57.2 cm/s Right Ventricle Basal Diameter 34 25 - 41 mm Tricuspid Valve Peak Velocity 2.5 m/s Raw LV EF% 47 % MV E/E' Tissue Velocity Lateral 7.73 Relative Wall Thickness 0.50 0.22 - 0.42 Left Ventricle indexed to BSA 74.4 g/m2 MV E/A ratio 0.9 MV E/e' septal 5.50 Left Ventricle E/e' Average 6.6 Aortic Valve Prosthetic Peak Gradient 7 mmHg Aortic Valve Prosthetic Mean Gradient 4 mmHg Aortic Valve Sinus Index by BSA 17 mm/m2 Aorta Sinus Index by Height 1.84 cm/m Aorta Sinus CSA index by Height 4.33 cm2/m Ascending Aorta Index 20 mm/m2 Asc Aorta CSA Index by Height 5.57 cm2/m Right Ventricle to Right Atrium Pressure Gradient 25 mmHg Right Ventricle Peak Systolic Pressure (Assuming RAP 10) 35 mmHg MGB CV ECHO TV RVSP (ASSUMING RAP OF 5) 30 mmHg RVSP (Exclusive of RAP) 25 mmHg MGB CV AV DIMENSIONLESS INDEX (PEAK) - STRESS ECHO DOBUT - REST 0.85 Ascending Aorta Index 20 mm Aortic Sinus Index 17 mm Ascending Aorta Diameter 20 mm Aortic Valve Sinus Index 1 17 19 - 27 mm AO ASC DIAM BSA INDEX 19.77 Echo E/Ea 5.50 Right Ventricle TAPSE 26 >=17 mm Right Ventricle Pulse Doppler S Wave 15.0 >=9.5 cm/s Right Atrium Area 14 cm2 Right Atrium Area index 8 cm2/m2 Right Ventricle Peak Systolic Pressure 28 mmHg Right Atrium Pressure Estimated 3 mmHg Anatomical Region Laterality Modality Heart Ultrasound Narrative 06/08/2025 6:17 PM EDT Images from the original result were not included. - Rhythm is sinus - Normal LV size and systolic function - EF is estimated at 55% There is normal diastolic function present There is normal RV systolic function - Mild aortic valve regurgitation present - Trace tricuspid valve and mitral valve regurgitation present - RVSP calculated at 28 mmHg - No pericardial effusion present - IVC is normal Left Ventricle The left ventricle is normal in size. There is normal wall thickness. There is normal left ventricular systolic function. The LV ejection fraction is 55% (calculated via the single dimension method). LV diastolic function appears within normal limits for age. The e' septal wave velocity is 10.4 cm/s. The e' lateral wave velocity is 7.4 cm/s. The average E/e' ratio is 6.6. Right Ventricle The right ventricle is normal in size. The RV basal dimension is 34 mm. There is normal right ventricular systolic function. TAPSE is 26 mm. RV S' wave is 15.0 cm/s. Left Atrium The left atrium is normal in size. The left atrial anterior-posterior dimension is 35 mm. There are normal flow patterns in the pulmonary vein. Right Atrium The right atrium is normal in size. The right atrial area is 14 cm2. The IVC is normal in size with normal inspiratory collapse. The IVC diameter is 18 mm. Mitral Valve The mitral valve appears normal. There is no mitral stenosis. There is trace mitral regurgitation. Tricuspid Valve The tricuspid valve appears normal. There is no tricuspid stenosis. There is trace tricuspid regurgitation. The RV systolic pressure was calculated at 28 mmHg (using TR peak velocity of 2.5 m/s and assuming an RA pressure of 3 mmHg). Normal pulmonary pressure. Aortic Valve The aortic valve is tricuspid. There is no aortic stenosis. There is mild aortic regurgitation. The visualized portions of the thoracic aorta appear normal in size. Pulmonic Valve The pulmonic valve appears normal. There is no pulmonic stenosis. There is trace pulmonic regurgitation. Pericardium There is no pericardial effusion. General Findings The image quality was good (2). Technique(s) used in the evaluation: Color flow Doppler and Spectral Doppler. The predominant rhythm during the study was sinus. Comparison Findings Compared to prior TTE on 06/25/2021, No acute changes compared to echo from May, IAS/IVS The interatrial septum appears normal. us Keiry Au APPLICATIONS SYSTEM ANALYST CV ECHO ORDERABLES [facility] al Result * Comprehensive metabolic panel (06/07/2025 7:55 AM EDT) SODIUM 141 133 - 146 mmol/L [facility] POTASSIUM 4.5 3.3 - 5.1 mmol/L [facility] CHLORIDE 105 96 - 108 mmol/L [facility] CO2 28 21 - 35 mmol/L [facility] BUN 18 6 - 19 mg/dL [facility] CREATININE 0.60 0.5 - 1.5 mg/dL [facility] GLUCOSE 93 70 - 99 mg/dL [facility] ALBUMIN 4.1 3.9 - 4.8 g/dL [facility] TOTAL PROTEIN 6.9 6.5 - 8.0 g/dL [facility] CALCIUM 9.4 8.4 - 10.3 mg/dL [facility] ALKALINE PHOSPHATASE 98 39 - 117 U/L [facility] TOTAL BILIRUBIN 0.3 0.0 - 1.2 mg/dL [facility] AST 31 0 - 37 U/L [facility] ALT 26 0 - 40 U/L [facility] GLOBULIN 2.8 1 - 4.8 g/dL [facility] EGFR 97 >59 mL/min/1.7 3m2 [facility] Comment:Estimated glomerular filtration rate calculated using the CKD-EPI refit equation. ANION GAP 13 10 - 20 mmol/L [facility] Blood 06/07/2025 7:55 AM EDT 06/07/2025 7:58 AM EDT Carla Mercado MD, MPH LAB BLOOD BKR ORDERABLES Final Result Performing Organization Address City/[facility]/ZIP Co de Phone Number [address] [address] * (ABNORMAL) Sedimentation rate (ESR) (06/07/2025 7:55 AM EDT) ESR 31(H) 0 - 30 mm/h [facility] Blood 06/07/2025 7:55 AM EDT 06/07/2025 7:58 AM EDT Carla Mercado MD, MPH LAB BLOOD BKR ORDERABLES Final Result Performing Organization Address [facility] Co de Phone Number [address] [address] * (ABNORMAL) CBC and differential (06/07/2025 7:55 AM EDT) Only the most recent of4 resultswithin the time period is included. WBC 2.71(L) 4.00 - 11.00 K/uL [facility] RBC 4.44 4.00 - 5.20 M/uL [facility] HGB 13.1 12.0 - 16.0 g/dL [facility] HCT 40.2 36.0 - 46.0 % [facility] PLT 156 150 - 450 K/uL [facility] MCV 90.5 80.0 - 100.0 fL [facility] MCH 29.5 27.0 - 31.0 pg [facility] MCHC 32.6 32.0 - 36.0 g/dL [facility] RDW 12.2 11.5 - 14.5 % [facility] MPV 10.6 8.4 - 12.0 fL [facility] NRBC 0.00 0.00 /100 WBCs [facility] ABSOLUTE NRBC 0.00 0.00 K/uL [facility] DIFF METHOD Auto [facility] NEUTS 47.5(L) 48.0 - 76.0 % [facility] LYMPHS 35.1 18.0 - 41.0 % [facility] MONOS 14.0(H) 4.0 - 11.0 % [facility] EOS 3.0 0.0 - 5.0 % [facility] BASOS 0.4 0.0 - 1.5 % [facility] Granulocytes, immature (%) 0.0 0.0 - 0.9 % [facility] ABSOLUTE NEUTS 1.29(L) 1.92 - 7.60 K/uL [facility] ABSOLUTE LYMPHS 0.95 0.72 - 4.10 K/uL [facility] ABSOLUTE MONOS 0.38 0.16 - 1.10 K/uL [facility] ABSOLUTE EOS 0.08 0.00 - 0.50 K/uL [facility] ABSOLUTE BASOS 0.01 0.00 - 0.15 K/uL [facility] Granulocytes, immature 0.00 0.00 - 0.09 K/uL [facility] Blood 06/07/2025 7:55 AM EDT 06/07/2025 7:58 AM EDT us Carla Mercado MD, MPH LAB BLOOD BKR ORDERABLES Final Result [facility] [address], [place] [id number] * (ABNORMAL) C-Reactive Protein (06/07/2025 7:55 AM EDT) C REACTIVE PROTEIN 11.7(H) 0.0 - 4.0 mg/L [facility] Blood 06/07/2025 7:55 AM EDT 06/07/2025 7:58 AM EDT Carla Mercado MD, MPH LAB BLOOD BKR ORDERABLES Final Result Performing Organization Address City/[facility] Co de Phone Number [address] [address] * CPK (creatine kinase) (06/07/2025 7:55 AM EDT) CREATINE KINASE 51 21 - 215 U/L [facility] Blood 06/07/2025 7:55 AM EDT 06/07/2025 7:58 AM EDT Carla Mercado MD, MPH LAB BLOOD BKR ORDERABLES Final Result Performing Organization Address [facility] Co de Phone Number [address] [address] * (ABNORMAL) Lipid panel (06/07/2025 7:55 AM EDT) HDL 81 mg/dL [facility] Comment: Interpretation <40 mg/dL: Low HDL cholesterol (major risk factor for CHD) Greater than or equal to 60 mg/dL: High HDL cholesterol ( negative risk factor for CHD) HDL - cholesterol is affected by a number of factors, e.g. smoking, excerise, hormones, sex and age. CHOLESTEROL 160 0 - 240 mg/dL [facility] TRIGLYCERIDES 43 30 - 160 mg/dL [facility] LDL 70 50 - 129 mg/dL [facility] Comment: LDL levels in terms of risk for coronary heart disease: <100 mg/dL: Optimal 100-129 mg/dL: Near or above optimal 130-159 mg/dL: Borderline high 160-189 mg/dL: High >190 mg/dL: Very High CARDIAC RISK RATIO 2.0(L) 3.3 - 4.4 [facility] Blood 06/07/2025 7:55 AM EDT 06/07/2025 7:59 AM EDT Keiry Au CNP LAB BLOOD BKR ORDERABL ES Final Result Performing Organization Address City/[facility] Co de Phone Number [address] [address] * D-dimer (05/30/2025 2:48 PM EDT) Only the most recent of2 resultswithin the time period is included. D-DIMER 301 <500 ng/mL FEU [facility] Comment:In patients with low to moderate pre-test probability scores for VTE (PE or DVT), a D-Dimer cut-off less than 500 ng/mL (FEU) has a negative predictive value (NPV) of 97 to 100%. Blood 05/30/2025 2:48 PM EDT 05/30/2025 3:14 PM EDT us Jean Garcia MD LAB BLOOD BKR ORDERABLES Aleja l Result Performing Organization Address [facility] Co de Phone Number [address] [address] * Lab Add On: ddimer (05/30/2025 2:03 PM EDT) TEST REQUESTED DDIMER [facility] Comments (Chemistry) Add on order being processed. Floor or provider will be notified if testing cannot be performed [facility] 05/30/2025 2:03 PM EDT 05/30/2025 2:36 PM EDT us Jean Garcia MD LAB BLOOD ORDERABLES Final Re sult Performing Organization Address [facility]/ZIP Co de Phone Number [address] [address] * Troponin (05/30/2025 11:34 AM EDT) Only the most recent of4 resultswithin the time period is included. Troponin-T, HS Gen5 <6 0 - 9 ng/L [facility] Blood 05/30/2025 11:3 4 AM EDT 05/30/2025 11:37 AM EDT us Jaron Doshi MD LAB BLOOD BKR ORDERABLES Final R esult [address] [address] * XR CHEST PA AND LATERAL 2 VIEWS (05/30/2025 11:14 AM EDT) Anatomical Region Laterality Modality Chest Computed Radiogr aphy 05/30/2025 11:5 5 AM EDT Impressions 05/30/2025 11:55 AM EDT No acute abnormality. Narrative 05/30/2025 11:55 AM EDT XR CHEST PA AND LATERAL 2 VIEWS Referring clinician's provided indication for this examination in [facility]: Dyspnea (Shortness of Breath) COMPARISON: XR CHEST PA AND LATERAL 2 VIEWS FINDINGS: Devices/Tubes/Lines: None. Lungs: No focal consolidation or pulmonary edema. Pleura: No pleural effusion or pneumothorax. Heart/Mediastinum: Normal heart and mediastinum. Bones/Soft Tissues: Mild thoracic spine degenerative changes. Procedure Note Aston Thomas MD, PhD - 05/30/2025 XR CHEST PA AND LATERAL 2 VIEWS Referring clinician's provided indication for this examination in [facility]:Dyspnea (Shortness of Breath) COMPARISON: XR CHEST PA AND LATERAL 2 VIEWS FINDINGS: Devices/Tubes/Lines: None. Lungs: No focal consolidation or pulmonary edema. Pleura: No pleural effusion or pneumothorax. Heart/Mediastinum: Normal heart and mediastinum. Bones/Soft Tissues: Mild thoracic spine degenerative changes. IMPRESSION: No acute abnormality. us Jaron Doshi MD IMG XR CHEST Final Result * NT-proBNP (05/30/2025 10:43 AM EDT) Only the most recent of2 resultswithin the time period is included. NT-PROBNP 125 0 - 450 pg/mL [facility] Blood 05/30/2025 10:4 3 AM EDT 05/30/2025 10:51 AM EDT us Jaron Doshi MD LAB BLOOD BKR ORDERABLES Final R esult Performing Organization Address City/[facility] Co de Phone Number [address] [address] * (ABNORMAL) Basic metabolic panel (05/30/2025 10:43 AM EDT) Only the most recent of2 resultswithin the time period is included. SODIUM 141 133 - 146 mmol/L [facility] CHLORIDE 104 96 - 108 mmol/L [facility] POTASSIUM 4.6 3.3 - 5.1 mmol/L [facility] CO2 28 21 - 35 mmol/L [facility] BUN 23(H) 6 - 19 mg/dL [facility] CREATININE 0.70 0.5 - 1.5 mg/dL [facility] GLUCOSE 95 70 - 99 mg/dL [facility] CALCIUM 9.7 8.4 - 10.3 mg/dL [facility] EGFR 93 >59 mL/min/1.7 3m2 [facility] Comment:Estimated glomerular filtration rate calculated using the CKD-EPI refit equation. ANION GAP 14 10 - 20 mmol/L [facility] Blood 05/30/2025 10:4 3 AM EDT 05/30/2025 10:51 AM EDT us Jaron Doshi MD LAB BLOOD BKR ORDERABLES Final R esult [address] [address] * ECG 12-LEAD (05/30/2025 10:23 AM EDT) Only the most recent of2 resultswithin the time period is included. Ventricular Rate EKG/MIN 65 BPM [facility] Atrial Rate 65 BPM [facility] AL Interval 188 ms [facility] QRS Duration 72 ms [facility] QT Interval 402 ms [facility] QTC Interval 418 ms [facility] P Mitchell 65 degrees [facility] R Wave Mitchell 69 degrees [facility] T Wave Mitchell 69 degrees [facility] 05/30/2025 10:2 3 AM EDT 05/31/2025 7:43 AM EDT Narrative [facility] - 05/31/2025 7:43 AM EDT Normal sinus rhythm Normal ECG When compared with ECG of 01-May-2025 14:41, Nonspecific T wave abnormality no longer evident in Inferior leads T wave inversion less evident in Anterior leads Confirmed by Sunil Ho ([id number]) on 05/31/2025 7:43:50 AM Jaron Doshi MD ECG ORDERABLES Final Result [facility] * MCT (Mobile Cardiac Telemetry) (05/09/2025 3:57 PM EDT) Anatomical Region Laterality Modality Heart Other Narrative 05/10/2025 9:13 AM EDT Event monitor report Indication TIA Findings: The underlying rhythm is sinus rhythm average heart rate 66 minimum heart rate 46 maximal heart rate 189. There are very rare isolated PVCs. There are rare isolated premature atrial contractions. There was a 19-second run of what looks like atrial fibrillation versus SVT. Conclusion: There were rare premature atrial contractions and there was 19 seconds of what looked like it could be atrial fibrillation versus SVT. No sustained episodes of atrial fibrillation were seen. Keiry Au [facility] CV CARDIAC SERVICES OR DERABLES Final Result * Outside ECG Report Only (05/07/2025 4:03 PM EDT) Only the most recent of5 resultswithin the time period is included. Taylor Provider ECG ORDERABLES Final Res ult * XR CHEST PA AND LATERAL 2 VIEWS (05/01/2025 7:37 PM EDT) Anatomical Region Laterality Modality Chest Computed Radiogr aphy 05/01/2025 8:58 PM EDT Impressions 05/01/2025 8:59 PM EDT No acute abnormality. Narrative 05/01/2025 8:59 PM EDT XR CHEST PA AND LATERAL 2 VIEWS Referring clinician's provided indication for this examination in [facility]: Fatigue COMPARISON: XR CHEST PA AND LATERAL 2 VIEWS FINDINGS: Devices/Tubes/Lines: None. Lungs: No focal consolidation or pulmonary edema. Pleura: No pleural effusion or pneumothorax. Heart/Mediastinum: Normal heart and mediastinum. Bones/Soft Tissues: No significant abnormality. Procedure Note Jeaneth Lang MD, PhD - 05/01/2025 XR CHEST PA AND LATERAL 2 VIEWS Referring clinician's provided indication for this examination in [facility]:Fatigue COMPARISON: XR CHEST PA AND LATERAL 2 VIEWS FINDINGS: Devices/Tubes/Lines: None. Lungs: No focal consolidation or pulmonary edema. Pleura: No pleural effusion or pneumothorax. Heart/Mediastinum: Normal heart and mediastinum. Bones/Soft Tissues: No significant abnormality. IMPRESSION: No acute abnormality. us Nelson Crowder MD IMG XR CHEST Final Result * TSH with reflex (05/01/2025 3:33 PM EDT) TSH 1.10 0.27 - 4.20 uIU/mL [facility] 05/01/2025 3:33 PM EDT 05/01/2025 3:39 PM EDT us Mynor Hooper MD LAB BLOOD BKR ORD ERABLES Final Result [facility] [address] [place] [address] * Magnesium (05/01/2025 3:33 PM EDT) MAGNESIUM 2.1 1.6 - 2.6 mg/dL [facility] 05/01/2025 3:33 PM EDT 05/01/2025 3:39 PM EDT us Mynor Hooper MD LAB BLOOD BKR ORD ERABLES Final Result [facility] [address] [place] [address] * CT CHEST WITH CONTRAST (04/06/2025 8:11 PM EDT) MGB IMG RECOMMENDATION COMMENT nonspecific pulmonary micronodules favored [facility] Anatomical Region Laterality Modality Chest Computed Tomogra phy 04/11/2025 7:05 PM EDT Impressions 04/11/2025 7:14 PM EDT 1. No specific findings to explain patient's symptoms. 2. Few nonspecific pulmonary micronodules, one of which is favored to represent an intrapulmonary lymph node. These are of questionable clinical significance. If patient is at increased risk for lung cancer, follow-up chest CT in one year would be recommended. Narrative 04/11/2025 7:[address] CHEST WITH CONTRAST Referring clinician's provided indication for this examination in Epic: * Cough, persistent TECHNIQUE: Multidetector CT of the chest was performed with intravenous contrast using tailored dose modulation techniques. COMPARISON: Chest radiograph 03/15/2025 and prior studies going back to 05/29/2021 FINDINGS: Devices/Tubes/Lines: None. Lungs: The central airways are patent. Dependent hypoventilatory changes bilaterally. Few linear opacities, favored to represent atelectasis versus scarring. Few millimeter left apical nodule (series 4, image 51), 3 mm nodule along the right major fissure (image 169), favored to represent an intrapulmonary lymph node. Pleura: No pleural effusion or pneumothorax. Mediastinum: Heterogeneous appearance to the thyroid gland. Mild multichamber cardiomegaly. No pericardial effusion. Aneurysmal dilatation of the ascending thoracic aorta measuring 4.0 cm (series 2, image 46). Lymph Nodes: No enlarged supraclavicular, axillary, mediastinal, or hilar lymph nodes. Upper Abdomen: There is no focal abnormality in the imaged liver, gallbladder, clean, pancreas, adrenal glands or right upper pole. Left sided renal cysts and centimeter hypoattenuating foci, too small to accurately characterize and statistically representing cysts. Chest Wall: There is an ovoid, well-circumscribed 2.1 x 1.6 cm left breast mass (series 2, image 52). Please note, patient is up-to-date on breast cancer screening.. Bones: Heterogeneous osseous demineralization. Multilevel degenerative changes of the thoracolumbar spine. There are no destructive bony lytic or blastic lesions within the limitations of heterogeneity. Procedure Note Charleen López MD - 04/11/2025 CT CHEST WITH CONTRAST Referring clinician's provided indication for this examination in Epic: *Cough, persistent TECHNIQUE: Multidetector CT of the chest was performed with intravenouscontrast using tailored dose modulation techniques. COMPARISON: Chest radiograph 03/15/2025 and prior studies going back to05/29/2021 FINDINGS: Devices/Tubes/Lines: None. Lungs: The central airways are patent. Dependent hypoventilatory changesbilaterally. Few linear opacities, favored to represent atelectasis versusscarring. Few millimeter left apical nodule (series 4, image 51), 3 mmnodule along the right major fissure (image 169), favored to represent anintrapulmonary lymph node. Pleura: No pleural effusion or pneumothorax. Mediastinum: Heterogeneous appearance to the thyroid gland. Mildmultichamber cardiomegaly. No pericardial effusion. Aneurysmal dilatationof the ascending thoracic aorta measuring 4.0 cm (series 2, image 46). Lymph Nodes: No enlarged supraclavicular, axillary, mediastinal, or hilarlymph nodes. Upper Abdomen: There is no focal abnormality in the imaged liver,gallbladder, clean, pancreas, adrenal glands or right upper pole. Leftsided renal cysts and centimeter hypoattenuating foci, too small toaccurately characterize and statistically representing cysts. Chest Wall: There is an ovoid, well-circumscribed 2.1 x 1.6 cm left breastmass (series 2, image 52). Please note, patient is up-to-date on breastcancer screening.. Bones: Heterogeneous osseous demineralization. Multilevel degenerativechanges of the thoracolumbar spine. There are no destructive bony lytic orblastic lesions within the limitations of heterogeneity. IMPRESSION: 1. No specific findings to explain patient's symptoms. 2. Few nonspecific pulmonary micronodules, one of which is favored torepresent an intrapulmonary lymph node. These are of questionable clinicalsignificance. If patient is at increased risk for lung cancer, follow-upchest CT in one year would be recommended. Hanna Carlson APPLICATIONS SYSTEM ANALYST IMG CT CHEST Final Res ult * BI MAMMOGRAM SCREENING WITH TOMOSYNTHESIS WITH CAD (BILATERAL) (11/17/2024 4:09 PM EDT) Anatomical Region Laterality Modality Breast Left, Breast Right, Breast Bilateral Bila teral Mammography 11/20/2024 2:36 PM EDT Impressions 11/20/2024 2:39 PM EDT No mammographic evidence of malignancy in either breast. Annual screening mammography is recommended. BI-RADS 2 BENIGN The patient will be notified of the results and recommendations. Narrative 11/20/2024 2:39 PM EDT BI MAMMOGRAM SCREENING WITH TOMOSYNTHESIS WITH CAD (BILATERAL) Additional patient information: Screening. COMPARISON: Comparison is made with relevant prior imaging. Breast composition: The breasts are heterogeneously dense, which may obscure small masses. FINDINGS: Unchanged left breast mass with stability consistent with benign etiology. No abnormal masses, suspicious calcifications, or other significant findings are identified mammographically in either breast. Procedure Note Keiry Mclean MD - 11/20/2024 BI MAMMOGRAM SCREENING WITH TOMOSYNTHESIS WITH CAD (BILATERAL) Additional patient information: Screening. COMPARISON: Comparison is made with relevant prior imaging. Breast composition: The breasts are heterogeneously dense, which mayobscure small masses. FINDINGS: Unchanged left breast mass with stability consistent with benignetiology. No abnormal masses, suspicious calcifications, or other significantfindings are identified mammographically in either breast. IMPRESSION: No mammographic evidence of malignancy in either breast. Annual screening mammography is recommended. BI-RADS 2 BENIGN The patient will be notified of the results and recommendations. Keiry Au [facility] IMG MG EXAMS Final Result * BD DXA AXIAL (SPINE) WITH HIP (09/15/2022 2:54 PM EST) Anatomical Region Laterality Modality Bone Density Bone Density 09/15/2022 3:08 PM EST Impressions 09/15/2022 3:10 PM EST Osteopenia Reference Information: The T-score is the number of standard deviations above or below the standard which is normal for young adults at their peak bone mineral density. The World Health Organization (WHO) interprets the T-scores as follows: Above -1 Normal bone density Between -1 and -2.5 Osteopenia Equal to / or below -2.5 Osteoporosis As a practical clinical guideline, osteopenia may be graded as follows: Mild -1 through -1.5 Moderate -1.6 through -2.0 Severe -2.1 through -2.4 References: 1. NIH Osteoporosis and Related Bone Diseases http://www.osteo.org 2. International Society for Clinical Densitometry http://www.iscd.org 3. National Osteoporosis Foundation http://www.nof.org Narrative 09/15/2022 3:10 PM EST STUDY: DUAL ENERGY X-RAY ABSORPTIOMETRY / DXA REASON FOR EXAM: Female, 67 years old. TECHNIQUE: Bone Mineral Density (BMD) measurements of the lumbar spine and bilateral hips were obtained. COMPARISON: 04/01/2020. FINDINGS: L1-L3 T score: -0.1. This corresponds to Normal bone density. This represents a 2.4 % increase in bone density compared with prior exam from 04/01/2020. Right femoral neck T score: -1.2. This corresponds to osteopenia Right total hip T score: -1.3. This corresponds to osteopenia This represents a -1.3 % decrease in bone density compared with prior exam from 04/01/2020. FRAX score: 10 year risk of major osteoporotic fracture 8.8%, 10 year risk of hip fracture 0.8% Left femoral neck T score: -1.5. This corresponds to osteopenia Left total hip T score: -1.1. This corresponds to osteopenia This represents a -0.5 % decrease in bone density compared with prior exam from 04/01/2020. FRAX score: 10 year risk of major osteoporotic fracture 9.6%, 10 year risk of hip fracture 1.2% Procedure Note Bigg Milner MD - 09/15/2022 STUDY: DUAL ENERGY X-RAY ABSORPTIOMETRY / DXA REASON FOR EXAM: Female, 67 years old. TECHNIQUE: Bone Mineral Density (BMD) measurements of the lumbar spineand bilateral hips were obtained. COMPARISON: 04/01/2020. FINDINGS: L1-L3 T score: -0.1. This corresponds to Normal bone density. This represents a 2.4 % increase in bone density compared with prior examfrom 04/01/2020. Right femoral neck T score: -1.2. This corresponds to osteopenia Right total hip T score: -1.3. This corresponds to osteopenia This represents a -1.3 % decrease in bone density compared with prior examfrom 04/01/2020. FRAX score: 10 year risk of major osteoporotic fracture 8.8%, 10 year riskof hip fracture 0.8% Left femoral neck T score: -1.5. This corresponds to osteopenia Left total hip T score: -1.1. This corresponds to osteopenia This represents a -0.5 % decrease in bone density compared with prior examfrom 04/01/2020. FRAX score: 10 year risk of major osteoporotic fracture 9.6%, 10 year riskof hip fracture 1.2% IMPRESSION: Osteopenia Reference Information: The T-score is the number of standard deviations above or below thestandard which is normal for young adults at their peak bone mineraldensity. The World Health Organization (WHO) interprets the T-scores asfollows: Above -1 Normal bone density Between -1 and -2.5 Osteopenia Equal to / or below -2.5 Osteoporosis As a practical clinical guideline, osteopenia may be graded as follows: Mild -1 through -1.5 Moderate -1.6 through -2.0 Severe -2.1 through -2.4 References: 1. NIH Osteoporosis and Related Bone Diseases http://www.osteo.org 2. International Society for Clinical Densitometry http://www.iscd.org 3. National Osteoporosis Foundation http://www.nof.org Keiry Au [facility] BD BONE DENSITY DE XA Final Result * ENDOSCOPY, COLON (09/23/2020 10:12 AM EST) Narrative Transcriptions Kade Powell MD - 09/23/2020 10:12 AM EST Patient Name: Janett Mohan Attending MD:: KADE POWELL MD, Procedure Date: 09/23/2020 10:12 AM Date of : 1955 Age: 65 Admit Type: Outpatient Gender: Female Room: [place] [address] Referring MD: ROLO ESTEVEZ MD Exam Type: Colonoscopy Indications: Screening for colorectal malignant neoplasm Medications: Monitored Anesthesia Care Procedure: Informed consent was obtained from the patient after discussion of the indications, limitations, alternatives, benefits, and risks of the procedure. Risks specifically discussed include but are not limited to medication reactions, missed lesions, bleeding, perforation, or the need for emergentsurgery. Throughout the procedure, the patient's bloodpressure, pulse, end-tidal CO2, and oxygen saturations were monitored continuously. The Olympus pediatric variable [id number]-[id number] #6 was introduced through the anus and advanced tothe cecum, identified by appendiceal orifice andileocecal valve. The colonoscopy was performed without difficulty. The patient tolerated the procedurewell. The quality of the bowel preparation was excellent.The quality of the bowel preparation was evaluated using the BBPS ([place] Bowel Preparation Scale) withscores of: Right Colon = 3, Transverse Colon = 3 and Left Colon = 3 (entire mucosa seen well with no residual staining, small fragments of stool or opaqueliquid). The total BBPS score equals 9. Complications: No immediate complications. Estimated blood loss:None. Findings: The perianal and digital rectal examinations were normal. Internal hemorrhoids were found during retroflexion. The hemorrhoids were mild. No other significant abnormalities were identifiedin a careful examination of the remainder of the colon. Impression: - Internal hemorrhoids. - No specimens collected. Recommendation: - Discharge patient to home. - Repeat colonoscopy in 10 years for screeningpurposes. KADE POWELL MD, 09/23/2020 10:44:51 AM This report has been signed electronically. Number of Addenda: 0 Note Initiated On: 09/23/2020 10:12 AM Procedure Code(s): --- Professional --- 96573, Colonoscopy, flexible; diagnostic, including collection of specimen(s) by brushing or washing, when performed (separateprocedure) --- Technical --- 35126, Colonoscopy, flexible; diagnostic, including collection of specimen(s) by brushing or washing, when performed (separateprocedure) Diagnosis Code(s): --- Professional --- Z12.11, Encounter for screening for malignantneoplasm of colon K64.8, Other hemorrhoids --- Technical --- Z12.11, Encounter for screening for malignantneoplasm of colon K64.8, Other hemorrhoids CPT copyright 2018 [employer]. All rights reserved. The codes documented in this report are preliminary and upon manager call reviewmay be revised to meet current compliance requirements. Procedure Date: 09/23/2020 10:12:[address] [place] [address] Rolo Estevez MD GI PROCEDURE ORDERABLES Aleja l Result from Last 3 Months or Most Recently Relevant to Health Maintenance Insurance MEDICARE PART A & B Member Subscriber Plan / Payer (Ef fective 2020-Present) Name:Janett Mohan Member ID:[id number] Relation to Subscriber:Self Name:Janett Mohan Subscriber ID:[id number] Payer ID:[id number] Group ID:Not on file Type:Medicare Address: [facility] [employer] [facility]. [address] [facility] [place] [address] [facility] MEDICARE ENHANCE SUPPLEMENT MEDICARE PART A & B MEDICARE ENHANCE SUPPLEMENT MEDICARE PART A & B MEDICARE ENHANCE SUPPLEMENT [facility] MEDICARE ENHANCE SUPPLEMENT MEDICARE PART A & B [facility] MEDICARE ENHANCE SUPPLEMENT MEDICARE PART A & B [facility] MEDICARE ENHANCE SUPPLEMENT MEDICARE PART A & B [facility] MEDICARE ENHANCE SUPPLEMENT MEDICARE PART A & B [facility] MEDICARE ENHANCE SUPPLEMENT MEDICARE PART A & B [facility] MEDICARE ENHANCE SUPPLEMENT [employer] Advance Directives For more information, please contact: [phone] (9AM - 5PM Romina/[facility], Wednesday-Wednesday) Documents on File Type Date 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 completed POLST * Full Code (Latest Code Status on File) Date Activated Date Inactivated Comments 01/16/2025 2:10 PM Question Answer Comments Code Status Confirmed With: Patient Code Status Communicated To: PCP * Full Code Date Activated Date Inactivated Comments 05/29/2021 6:46 PM 01/16/2025 2:10 PM Question Answer Comments Code Status Confirmed With: Patient * Full Code (Presumed) Date Activated Date Inactivated Comments 08/14/2016 7:42 AM 08/14/2016 1:14 PM 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 It is not the complete legal health record.[facility]
--- OUTSIDE RECORDS SUMMARY | 2025-07-06 11:28 | XMS_ITS | Patient Health Record ---
Author Organization [facility] Address [address] [facility] [place] [address] Care Team Providers Care Mine Boss Name Role Phone Roe COOK SOUP, Keiry Primary Care Provider Esteban Mendoza Unavailable [phone] Allergies No Known Allergies Reason For Referral No Information Medications Medication SIG (Take, Route, Fr equency, Duration) Notes Start Date End Date Status Amitriptyline HCl 25 MG 1 tablet at bedt emily Orally Once a day; Duration: 30 day(s) Active Kevzara 200 MG/1.14ML as directed Subcutaneous Active Emgality 120 MG/ML as directed Subcutaneous Active Cymbalta 20 MG 1 capsule Orally Twi ce a day; Duration: 30 day(s) Active CeleBREX 200 MG 1 capsule with food Orally Once a day; Duration: 30 day(s) Active Social History Tobacco Use: Social History Observation Description Date Details (start date - stop date) Former Smoker NA - NA Tobacco Use/Smoking Question Answer Notes Are you a: former smoker Additional Findings: Tobacco Non-User Current no n-smoker Alcohol Screen Question Answer Notes Did you have a drink containing alcohol in the p ast year? Yes Points 0 Interpretation Negative Tobacco use other than smoking: Question Answer Notes Are you an other tobacco user? No Problems Problem Type SNOMED Code ICD Code Onset Dates Problem Status W/U Status Risk Notes Problem Acquired hallux valgus (76643078) Hallux valgus (acquired), right foot (M20.11) Active confirmed Problem Localized, primary osteoarthritis of the ankle and/or foot (628726463) Primary osteoarthritis, right ankle and foot (M19.071) Active confirmed Problem Rheumatoid arthritis (80579017) Rheumatoid arthritis involving both feet, unspecified whether rheumatoid factor present (M06.9) Active confirmed Plan Of Treatment Pending Test Test Name Order Date X ray : Foot, right 3V 04/27/2022 Insurance Providers Payer Name Payer Address Payer Phone Subscriber Number Group Number Insured Name Patient Relationship to Insured Coverage Start Date Coverage End Date Medicare National Govt Svcs Inc [address] [place] [address] [id number] Janett Grande Self - patient is the insured [employer] Preferred [address] [place] [address] [phone] [id number] Fabrice Aviles i Spouse - patient is the spouse of the insured Medical (General) History Medical History History ICD Code rheumatoid arthritis Measles Chicken pox Depression Headaches Joint implants/screws Numbness Surgical History Surgery Date(Month/Year) left knee replacement 10/16 Thumb Surgery 99 shoulder arthroscopy 2010 hysterectomy 2003
--- OUTSIDE RECORDS SUMMARY | 2025-07-06 11:28 | XMS_ITS | Encounter Summary ---
Author Organization [facility] Address [address] [place] [address] Phone Care Team Providers Care Employment Specialist/Program Manager Name Role Phone Keiry Au CNP Unavailable [phone] Keiry Au CNP Primary Care Provider Keiry Au CNP Unavailable Chad Esposito DO Primary Care Provider Keiry Au CNP Primary Care Provider Encounter Details Date Type Department Care Team (Latest Contact Info) Description 02/13/2025 Ancillary Orders [facility], [facility] - [facility] [address] [place] [address] Chad Esposito, DO [address] [place] [address] [email or web address] Primary osteoarthritis of right knee (Primary Dx) Social History Tobacco Use Types Packs/Day Years Used Date Smoking Tobacco: Former Cigarettes 0.3 17 0 10/04/1968 - 10/04/1985 Smokeless Tobacco: Never Alcohol Use Standard Drinks/Week Comments Yes 14 (1 standard drink = 0.6 oz pu re alcohol) 2 drinks per day Education Answer Date Recorded Are you interested in more education? Not on janelle e 12/24/2022 Are you concerned about learning? Not on file 12/24/2022 No 12/24/2022 No 12/24/2022 Digital Access Answer Date Recorded No 01/25/2023 No 01/25/2023 Reliable internet access at home? Not on file 01/25/2023 Device with a working camera? Not on file Intimate Partner Violence Answer Date R ecorded Are you denied basic needs s uch as food, clothing, or medical care? No 10/06/2024 In the past 12 months have y ou been in a relationship with a person who hurts, threatens, or tries to control you? No 10/06/2024 Are you denied basic needs s uch as food, clothing, or medical care? No 10/06/2024 In the past 12 months have y ou been in a relationship with a person who hurts, threatens, or tries to control you? 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 Not on file Not on file documented as of this encounter Plan of Treatment Upcoming Encounters Date Type Department Care Team (Late st Contact Info) Description 08/07/2025 1:40 PM EST Office Visit [facility] Rheumatology [address] [place] [address] Carla Mercado MD, MPH [address] [place] [address], [facility] [address] [place] [address] 12/27/2025 1:00 PM EDT Office Visit [facility] Neurology [address] [place] [address] Arnaldo Mcdonough MD [address] [facility]nd [place] [address] [email or web address] documented as of this encounter Results * XR KNEE 3 VIEW (RIGHT) (02/13/2025 4:04 PM EDT) Anatomical Region Laterality Modality Knee Right Computed Radiogr aphy 02/14/2025 5:00 PM EDT Impressions 02/14/2025 5:01 PM EDT FINDINGS/IMPRESSION: There is no evidence of acute fracture, subluxation, or dislocation. There is minimal medial compartment joint space narrowing and marginal osteophytosis. There is no joint effusion. Narrative 02/14/2025 5:01 PM EDT XR KNEE 3 VIEW (RIGHT) 02/13/2025 3:44 PM Referring clinician's provided indication for this examination in [facility]: Pain COMPARISON: None Procedure Note So Solitario MD - 02/14/2025 XR KNEE 3 VIEW (RIGHT) 02/13/2025 3:44 PM Referring clinician's provided indication for this examination in [facility]:Pain COMPARISON: None IMPRESSION: FINDINGS/IMPRESSION: There is no evidence of acute fracture, subluxation, or dislocation. Thereis minimal medial compartment joint space narrowing and marginalosteophytosis. There is no joint effusion. Chad Esposito DO IMG XR LOWER EXTREMITY Final Result documented in this encounter Visit Diagnoses Diagnosis Primary osteoarthritis of right knee- Primary Primary osteoarthritis of right knee documented in this encounter Additional Health Concerns Assessment Noted Time PHQ-2 Depression Total Score: 2 10/06/19 25 1:26 PM EST documented as of this encounter Care Teams Employment Specialist/Program Manager Relationship Specialty Start Date End Date Keiry Au CNP [address] [place] [phone] PCP - General Internal Medicine 02/12/23 03/04/25 Chad Esposito DO [address] [place] [phone] [email or web address] PCP - General Internal Medicine 03/05/25 03/13/25 Keiry Au CNP [address] [place] [phone] PCP - General Nurse Practitioner 03/14/25 Keiry Au CNP [address] [place] [phone] Primary Care Physician 06/17/17 Keiry Au CNP [address] [place] [address] Insurance Assigned Provider 12/03/24 documented as of this encounter Additional Source Comments The information contained in this document represents components of the legal health record. It is not the complete legal health record.[facility]
--- OUTSIDE RECORDS SUMMARY | 2025-07-06 11:28 | XMS_ITS | Encounter Summary ---
Author Organization [facility] Address [address] [place] [address] Phone Care Team Providers Care Vice President Business & Corporate Development Name Role Phone Keiry Au CNP Unavailable Keiry Au CNP Primary Care Provider Keiry Au CNP Unavailable Chad Esposito DO Primary Care Provider Keiry Au CNP Primary Care Provider Encounter Details Date Type Department Care Team (Late st Contact Info) Description 02/13/2025 Ancillary Orders [facility], X-Ray - [facility] [address] [place] [address] Chad Esposito, DO [address] [place] [address] [email or web address] Hip pain, bilateral (Primary Dx) Social History Tobacco Use Types [...] 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 Not on file Not on file documented as of this encounter Plan of Treatment Upcoming Encounters Date Type Department Care Team (Late st Contact Info) Description 08/07/2025 1:40 PM EST Office Visit [facility] Rheumatology [address] [place] [address] [place] [address] Carla Mercado MD, MPH [address] [place] [address], [address] [place] [address] [email or web address] 12/27/2025 1:00 PM EDT Office Visit [facility] Neurology [address] [place] [address] Arnaldo Mcdonough MD [address] [place] [address], [address] [place] [address] [email or web address] documented as of this encounter Results * XR HIPS 2+ VW EA BILAT PLUS PELVIS (02/13/2025 4:06 PM EDT) Anatomical Region Laterality Modality Hip, Pelvis Computed Radiogr aphy 02/14/2025 5:01 PM EDT Impressions 02/14/2025 5:02 PM EDT FINDINGS/IMPRESSION: There is no evidence of acute fracture, subluxation, or dislocation. There is minimal degenerative change of the hips. The sacroiliac joints and symphysis pubis are congruent. There is incompletely evaluated degenerative change of the lower lumbar spine. Narrative 02/14/2025 5:02 PM EDT XR HIPS 2+ VW EA BILAT PLUS PELVIS 02/13/2025 3:44 PM Referring clinician's provided indication for this examination in [facility]: Pain COMPARISON: Pelvis/right hip radiographs 10/13/2024 Procedure Note So Solitario MD - 02/14/2025 XR HIPS 2+ VW EA BILAT PLUS PELVIS 02/13/2025 3:44 PM Referring clinician's provided indication for this examination in [facility]:Pain COMPARISON: Pelvis/right hip radiographs 10/13/2024 IMPRESSION: FINDINGS/IMPRESSION: There is no evidence of acute fracture, subluxation, or dislocation. Thereis minimal degenerative change of the hips. The sacroiliac joints andsymphysis pubis are congruent. There is incompletely evaluateddegenerative change of the lower lumbar spine. Chad Esposito DO IMG XR PELVIS Final Result documented in this encounter Visit Diagnoses Diagnosis Hip pain, bilateral- Primary Pain in joint, pelvic region and thigh Hip pain, bilateral Pain in joint, pelvic region and thigh documented in this encounter Additional Health Concerns Assessment Noted Time PHQ-2 Depression Total Score: 2 10/06/19 1:26 PM EST documented as of this encounter Care Teams Vice President Business & Corporate Development Relationship Specialty Start Date End Date Keiry Au CNP [address] [place] [phone] PCP - General Internal Medicine 02/12/23 03/04/25 Chad Esposito DO [address] [place] [phone] [email or web address] PCP - General Internal Medicine 03/05/25 03/13/25 Keiry Au CNP [address] [place] [phone] PCP - General Nurse Practitioner 03/14/25 Keiry Au CNP [address] [place] [address] Primary Care Physician 06/17/17 Keiry Au CNP [address] [place] [phone] Insurance Assigned Provider 12/03/24 documented as of this encounter Additional Source Comments The information contained in this document represents components of the legal health record. It is not the complete legal health record.[facility]
--- OUTSIDE RECORDS SUMMARY | 2025-07-06 11:28 | XMS_ITS | Encounter Summary ---
Author Organization [facility] Address [address] [place] [address] Phone Care Team Providers Care Poultry Grader Name Role Phone Keiry Au CNP Unavailable Keiry Au CNP Primary Care Provider Laurie Eaton MD Unavailable [phone] Keiry Au CNP Primary Care Provider Keiry Au CNP Unavailable Chad Esposito DO Primary Care Provider [phone] Keiry Au CNP Primary Care Provider Encounter Details Date Type Department Care Team (Late st Contact Info) Description 09/18/2021 Procedure Pass [facility] Endoscopy Admitting Dept Virtual Department [address] [place] [address] Social History Tobacco Use Types Packs/Day Years Used Date Smoking Tobacco: Former Cigarettes 0.3 17 0 10/04/1968 - 10/04/1985 Smokeless Tobacco: Never Alcohol Use Standard Drinks/Week Comments Yes 14 (1 standard drink = 0.6 oz pu re alcohol) 2 per day Education Answer Date Recorded What is the [...] 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 Not on file Not on file documented as of this encounter Plan of Treatment Upcoming Encounters Date Type Department Care Team (Late st Contact Info) Description 08/07/2025 1:40 PM EST Office Visit [facility] Rheumatology [address] [place] [address] [place] [address] Carla Mercado MD, MPH [address] [place] [address], [address] [place] [address] 12/27/2025 1:00 PM EDT Office Visit [facility] Neurology [address] [place] [address] [place] [address] Arnaldo Mcdonough MD [address] [place] [address], [address] [place] [address] [email or web address] documented as of this encounter Visit Diagnoses Not on filedocumented in this encounter Additional Health Concerns Infection Onset Date Last Indicated Resolved Time CoV-Risk 05/19/2024 05/19/2024 05/30/2024 1:22 AM EDT CoV-Risk 08/29/2024 08/29/2024 09/09/2024 1:22 AM EST Assessment Noted Time PHQ-2 Depression Total Score: 0 10/05/19 9:38 AM EST documented as of this encounter Care Teams Poultry Grader Relationship Specialty Start Date End Date Keiry Au CNP [address] [place] [address] [address] [place] [address] PCP - General Internal Medicine 05/29/21 02/11/23 Keiry Au CNP [address] [place] [address] PCP - General Internal Medicine 02/12/23 03/04/25 Chad Esposito DO [address] [place] [phone] [email or web address] PCP - General Internal Medicine 03/05/25 03/13/25 Keiry Au CNP [address] [place] [address] [email or web address] PCP - General Nurse Practitioner 03/14/25 Keiry Au CNP [address] [place] [phone] Primary Care Physician 06/17/17 Laurie Eaton MD [address] [place] [address] Insurance Assigned Provider 12/04/23 12/03/24 Keiry Au CNP [address] [place] [phone] Insurance Assigned Provider 12/03/24 documented as of this encounter Additional Source Comments The information contained in this document represents components of the legal health record. It is not the complete legal health record.[facility]
--- OUTSIDE RECORDS SUMMARY | 2025-07-06 11:28 | XMS_ITS | Encounter Summary ---
Author Organization [facility] Address [address] [place] [phone] Phone Care Team Providers Care Clip Riveter Name Role Phone Keiry Au CNP Unavailable Keiry Au CNP Primary Care Provider Keiry Au WEATHER OBSERVER Unavailable Chad Esposito DO Primary Care Provider Keiry Au CNP Primary Care Provider Encounter Details Date Type Department Care Team (Late st Contact Info) Description 03/01/2025 Procedure Pass [facility], [address] [address] Social History Tobacco Use Types Packs/Day Years [...] you have received? 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 Not on file Not on file documented as of this encounter Plan of Treatment Upcoming Encounters Date Type Department Care Team (Late st Contact Info) Description 08/07/2025 1:40 PM EST Office Visit [facility] Rheumatology [address] [place] [address] Carla Mercado MD, MPH [address] [place] [address], [address] [place] [address] 12/27/2025 1:00 PM EDT Office Visit [facility] Neurology [address] [place] [address] Arnaldo Mcdonough MD [address] [place] [address], [address] [place] [address] documented as of this encounter Visit Diagnoses Not on filedocumented in this encounter Additional Health Concerns Assessment Noted Time PHQ-2 Depression Total Score: 2 10/06/19 1:26 PM EST documented as of this encounter Care Teams Clip Riveter Relationship Specialty Start Date End Date Keiry Au CNP [address] [place] [phone] PCP - General Internal Medicine 02/12/23 03/04/25 Chad Esposito DO [address] [place] [phone] [email or web address] PCP - General Internal Medicine 03/05/25 03/13/25 Keiry Au CNP [address] [place] [phone] PCP - General Nurse Practitioner 03/14/25 Keiry Au CNP [address] [place] [phone] Primary Care Physician 06/17/17 Keiry Au CNP [address] [place] [phone] Insurance Assigned Provider 12/03/24 documented as of this encounter Additional Source Comments The information contained in this document represents components of the legal health record. It is not the complete legal health record.[facility]
--- OUTSIDE RECORDS SUMMARY | 2025-07-06 11:28 | XMS_ITS | Encounter Summary ---
Author Organization [facility] Address [address] [place] [address] Phone Care Team Providers Care Batter Scaler Name Role Phone Keiry Au CNP Unavailable Keiry Au CERTIFIED HYPERBARIC TECHNOLOGIST Unavailable Keiry Au CERTIFIED HYPERBARIC TECHNOLOGIST Primary Care Provider Reason for Visit * Reason Onset Date Comments Medication Refill 07/02/2025 Atorvastatin Encounter Details Date Type Department Care Team (Late st Contact Info) Description 07/02/2025 Refill [facility] [place] [address] [place] [address] Ghazala De La Rosa, RONNIE [address] [place], [place] [phone] [email or web address] Medication Refill (Atorvastatin) Social History Tobacco Use Types Packs/Day Years [...] 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 Visit Info Last visit: 05/04/2025 Keiry Au CNP - Internal Medicine [facility] > Requested f/u: Return if symptoms worsen or fail to improve. Upcoming visit: None ACTIONS TAKEN BY Ghazala De La Rosa CMA - Criteria met. Cholesterol Medication Rx Protocol - atorvastatin calcium Criteria met; renew for up to 12 months. Visit in the past 14 months: Yes Clinical criteria: - Lipid panel within past year: Yes Lab Results Component Value Date LDL 70 06/07/2025 HDL 81 06/07/2025 CARDIAC RISK RATIO 2.0 (L) 06/07/2025 TRIGLYCERIDES 43 06/07/2025 CHOLESTEROL 160 06/07/2025 documented in this encounter Plan of Treatment Upcoming Encounters Date Type Department Care Team (Late st Contact Info) Description 08/07/2025 1:40 PM EST Office Visit [facility] Rheumatology [address] [place] [address] Carla Mercado MD, MPH [address] [place] [address], [address] [place] [address] [email or web address] 12/27/2025 1:00 PM EDT Office Visit [facility] Neurology [address] [place] [address] [place] [address] Arnaldo Mcdonough MD [address] [place] [address], [address] [place] [address] documented as of this encounter Visit Diagnoses Not on filedocumented in this encounter Additional Health Concerns Assessment Noted Time PHQ-2 Depression Total Score: 2 10/06/19 25 1:26 PM EST documented as of this encounter Care Teams Batter Scaler Relationship Specialty Start Date End Date Keiry Au CNP [address] [place] [address] PCP - General Nurse Practitioner 03/14/25 Keiry Au CNP [address] [place] [address] Primary Care Physician 06/17/17 Keiry Au CNP [address] [place] [phone] Insurance Assigned Provider 12/03/24 documented as of this encounter Additional Source Comments The information contained in this document represents components of the legal health record. It is not the complete legal health record.[facility]
--- OUTSIDE RECORDS SUMMARY | 2025-07-06 11:28 | XMS_ITS | Encounter Summary ---
Author Organization [facility] Address [address] [place] [address] Phone Care Team Providers Care Vmware Systems Administrator Name Role Phone Keiry Au CNP Unavailable Keiry Au CNP Primary Care Provider Keiry Au HEAD OF COMMISSION DEPARTMENT Unavailable Chad Esposito DO Primary Care Provider [phone] Keiry Au CNP Primary Care Provider Encounter Details Date Type Department Care Team (Late st Contact Info) Description 03/01/2025 Procedure Pass 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 Not on file Not on file documented as of this encounter Plan of Treatment Upcoming Encounters Date Type Department Care Team (Late st Contact Info) Description 08/07/2025 1:40 PM EST Office Visit [facility] Rheumatology [address] [place] [address] Carla Mercado MD, MPH [address] [place] [address], [address] [place] [address] 12/27/2025 1:00 PM EDT Office Visit [facility] Neurology [address] [place] [address] Arnaldo Mcdonough MD [address] [place] [address], 2nd [place] [address] documented as of this encounter Visit Diagnoses Not on filedocumented in this encounter Additional Health Concerns Assessment Noted Time PHQ-2 Depression Total Score: 2 10/06/19 1:26 PM EST documented as of this encounter Care Teams Vmware Systems Administrator Relationship Specialty Start Date End Date Keiry Au CNP [address] [place] [address] PCP - General Internal Medicine 02/12/23 03/04/25 Chad Esposito DO [address] [place] [phone] [email or web address] PCP - General Internal Medicine 03/05/25 03/13/25 Keiry Au CNP [address] [place] [address] PCP - General Nurse Practitioner 03/14/25 Keiry Au CNP [address] [place] [address] Primary Care Physician 06/17/17 Keiry Au CNP [address] [place] [phone] Insurance Assigned Provider 12/03/24 documented as of this encounter Additional Source Comments The information contained in this document represents components of the legal health record. It is not the complete legal health record.[facility]
--- OUTSIDE RECORDS SUMMARY | 2025-07-06 11:28 | XMS_ITS | Encounter Summary ---
Author Organization [facility] Address [address] [place] [address] Phone Care Team Providers Care Business Continuity Planning Director Name Role Phone Keiry Au CNP Unavailable Keiry Au CNP Primary Care Provider Keiry Au TRANSPORTATION WORKER Unavailable [phone] Chad Esposito DO Primary Care Provider Keiry Au CNP Primary Care Provider Encounter Details Date Type Department Care Team (Late st Contact Info) Description 03/01/2025 Procedure Pass [facility], [address] [address] Social History Tobacco Use Types Packs/Day Years [...] 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 Date 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 Not on file Not on file documented as of this encounter Plan of Treatment Upcoming Encounters Date Type Department Care Team (Late st Contact Info) Description 08/07/2025 1:40 PM EST Office Visit [facility] Rheumatology [address] [place] [address] Carla Mercado MD, MPH [address] [place] [address], [address] [place] [address] 12/27/2025 1:00 PM EDT Office Visit [facility] Neurology [address] [place] [address] Arnaldo Mcdonough MD [address] [place] [address], 2[address] [place] [address] documented as of this encounter Visit Diagnoses Not on filedocumented in this encounter Additional Health Concerns Assessment Noted Time PHQ-2 Depression Total Score: 2 10/06/19 1:26 PM EST documented as of this encounter Care Teams Business Continuity Planning Director Relationship Specialty Start Date End Date Keiry Au CNP [address] [place] [address] PCP - General Internal Medicine 02/12/23 03/04/25 Chad Esposito DO [address] [place] [phone] [email or web address] PCP - General Internal Medicine 03/05/25 03/13/25 Keiry Au CNP [address] [place] [address] PCP - General Nurse Practitioner 03/14/25 Keiry Au CNP [address] [place] [address] Primary Care Physician 06/17/17 Keiry Au CNP [address] [place] [address] Insurance Assigned Provider 12/03/24 documented as of this encounter Additional Source Comments The information contained in this document represents components of the legal health record. It is not the complete legal health record.[facility]
--- OUTSIDE RECORDS SUMMARY | 2025-07-06 11:28 | XMS_ITS | Encounter Summary ---
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 Not on file Not on file documented as of this encounter Plan of Treatment Upcoming Encounters Date Type Department Care Team (Late st Contact Info) Description 08/07/2025 1:40 PM EST Office Visit [facility] Rheumatology [address] [place] [address] Carla Mercado MD, MPH [address] [place] [address], [facility] [address] [place] [address] 12/27/2025 1:00 PM EDT Office Visit [facility] Neurology [address] [place] [address] [place] [address] Arnaldo Mcdonough MD [address] [place] [address], 2nd [place] [address] documented as of this encounter Visit Diagnoses Not on filedocumented in this encounter Additional Health Concerns Assessment Noted Time PHQ-2 Depression Total Score: 2 02/07/20 25 1:26 PM EST documented as of this encounter Care Teams Marine Consultant Relationship Specialty Start Date End Date Monae Espositok DO Mau [address] [place] [phone] [email or web address] PCP - General Internal Medicine 03/05/25 03/13/25 Keiry Au CNP [address] [place] [address] PCP - General Nurse Practitioner 03/14/25 Keiry Au CNP [address] [place] [address] Primary Care Physician 06/17/17 Keiry Au CNP [address] [place] [address] Insurance Assigned Provider 12/03/24 documented as of this encounter Additional Source Comments The information contained in this document represents components of the legal health record. It is not the complete legal health record.[facility]
--- OUTSIDE RECORDS SUMMARY | 2025-07-06 11:28 | XMS_ITS | Encounter Summary ---
Author Organization [facility] Address [address] [place] [address] Phone Care Team Providers Care Usability Architect Name Role Phone Keiry Au SUPERVISOR CIGAR MAKING HAND Unavailable Keiry Au SUPERVISOR CIGAR MAKING HAND Unavailable Chad Esposito DO Primary Care Provider Keiry Au CNP Primary Care Provider Reason for Referral * MRI/CAT Scan - Closed Specialty Diagnoses / Procedures Referred By Contsuze t Referred To Contact Radiology Diagnoses Radiculopathy, lumbar region Procedures MRI Lumbar Spine Chad Esposito DO [address] [place] [address] Phone: tel: fax: [email or web address] Referral ID Status Reason Start Date Expiration Date Visits Re quested Visits Authorized [id number] Closed 03/06/2025 03/06/2026 1 1 Encounter Details Date Type Department Care Team (Latest Contact Info) Description 03/06/2025 Transcribe Orders [facility] Department [address] [place] [phone] Chad Esposito DO [address] [place] [address] [email or web address] Radiculopathy, lumbar region (Primary Dx) Social History Tobacco Use Types [...] have received? 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 12/27/2025 1:00 PM EDT Office Visit [facility] Neurology [address] [place] [address] Arnaldo Mcdonough MD [address] [facility], 2nd [place] [address] [email or web address] documented as of this encounter Results * MRI LUMBAR SPINE (NEURO) WITHOUT CONTRAST (03/13/2025 11:06 AM EDT) Anatomical Region Laterality Modality L-spine Magnetic Resonan ce 03/14/2025 10:3 1 AM EDT Impressions 03/14/2025 10:46 AM EDT 1. Multilevel degenerative changes as detailed above, most prominent at L2-L3, with prky-iu-qzntmnpb spinal, mild RIGHT and moderate LEFT foraminal stenosis 2. Narrative 03/14/2025 10:46 AM EDT MRI LUMBAR SPINE (NEURO) WITHOUT CONTRAST Referring clinician's provided indication for this examination in Epic: Outside Radiology Order; radiculopathy TECHNIQUE: MRI LUMBAR SPINE (NEURO) WITHOUT CONTRAST Multi-sequence, multi-planar MRI of the lumbar spine was performed without intravenous contrast. COMPARISON: None FINDINGS: LUMBAR SPINE: Alignment and Vertebrae: Normal alignment. No compression fracture. Marrow: Multilevel endplate centered degenerative changes, especially at L4-L5. Probable hemangiomas in T11 (likely lipid poor hemangioma) and L1 vertebral bodies. Discs and Endplates: Moderate loss of disc at L2-L3 and L4-L5. Multilevel disc desiccation. Conus: Normal. Soft Tissues: No prevertebral edema. Other Findings: T2 hyperintensities in the LEFT kidney, likely cysts. Findings by level: T12-L1: No spinal or foraminal stenosis. L1-L2: Mild facet arthropathy with no significant spinal or foraminal stenosis. L2-L3: Moderate disc bulge with moderate facet arthropathy with ligamentum flavum infolding, contributing to thsn-ev-yqkwsptl spinal, mild RIGHT and moderate LEFT foraminal stenosis. L3-L4: Mild disc bulge with bckq-xi-eelmtxxb facet arthropathy contributing to mild spinal enlargement of bilateral foraminal stenosis. L4-L5: Mild disc bulge with moderate facet arthropathy contributing to mild spinal and mild bilateral foraminal stenosis, worse on the RIGHT. L5-S1: Mild disc bulge with mild facet arthropathy contributing to mild bilateral foraminal stenosis. Procedure Note Rajeev Cano MD, PhD - 03/14/2025 MRI LUMBAR SPINE (NEURO) WITHOUT CONTRAST Referring clinician's provided indication for this examination in Epic:Outside Radiology Order; radiculopathy TECHNIQUE: MRI LUMBAR SPINE (NEURO) WITHOUT CONTRAST Multi-sequence, multi-planar MRI of the lumbar spine was performed withoutintravenous contrast. COMPARISON: None FINDINGS: LUMBAR SPINE: Alignment and Vertebrae: Normal alignment. No compression fracture. Marrow: Multilevel endplate centered degenerative changes, especially atL4-L5. Probable hemangiomas in T11 (likely lipid poor hemangioma) and S4zupwmdhau bodies. Discs and Endplates: Moderate loss of disc at L2-L3 and L4-L5. Multileveldisc desiccation. Conus: Normal. Soft Tissues: No prevertebral edema. Other Findings: T2 hyperintensities in the LEFT kidney, likely cysts. Findings by level: T12-L1: No spinal or foraminal stenosis. L1-L2: Mild facet arthropathy with no significant spinal or foraminalstenosis. L2-L3: Moderate disc bulge with moderate facet arthropathy with ligamentumflavum infolding, contributing to yzxb-lr-vwhdqktr spinal, mild RIGHT andmoderate LEFT foraminal stenosis. L3-L4: Mild disc bulge with qcjj-pr-kebndmpv facet arthropathycontributing to mild spinal enlargement of bilateral foraminal stenosis. L4-L5: Mild disc bulge with moderate facet arthropathy contributing tomild spinal and mild bilateral foraminal stenosis, worse on the RIGHT. L5-S1: Mild disc bulge with mild facet arthropathy contributing to mildbilateral foraminal stenosis. IMPRESSION: 1. Multilevel degenerative changes as detailed above, most prominent atL2-L3, with ovab-ql-iigaqejf spinal, mild RIGHT and moderate LEFTforaminal stenosis 2. Chad Esposito DO IMG MR XSPECIALTY Final Resu lt documented in this encounter Visit Diagnoses Diagnosis Radiculopathy, lumbar region- Primary Thoracic or lumbosacral neuritis or radiculitis, unspecified Radiculopathy, lumbar region Thoracic or lumbosacral neuritis or radiculitis, unspecified documented in this encounter Additional Health Concerns Assessment Noted Time PHQ-2 Depression Total Score: 2 10/06/19 1:26 PM EST documented as of this encounter Care Teams Usability Architect Relationship Specialty Start Date End Date Chad Esposito DO [address] [place] [phone] [email or web address] PCP - General Internal Medicine 03/05/25 03/13/25 Keiry Au CNP [address] [place] [address] [place] [address] PCP - General Nurse Practitioner 03/14/25 Keiry Au CNP [address] [place] [address] [place] [address] Primary Care Physician 06/17/17 Keiry Au CNP [address] [place] [address] [place] [phone] Insurance Assigned Provider 12/03/24 documented as of this encounter Additional Source Comments The information contained in this document represents components of the legal health record. It is not the complete legal health record.[facility]
--- OUTSIDE RECORDS SUMMARY | 2025-07-06 11:28 | XMS_ITS | Encounter Summary ---
Author Organization [facility] Address [address] [place] [address] Phone Care Team Providers Care Industrial Diamond Polisher Name Role Phone Keiry Au CNP Unavailable Laurie Eaton MD Unavailable Keiry Au CNP Primary Care Provider Keiry Au CNP Unavailable Chad Esposito DO Primary Care Provider Keiry Au CNP Primary Care Provider Encounter Details Date Type Department Care Team (Late st Contact Info) Description 06/08/2023 Procedure Pass [facility] [address] [place] [address] Social History Tobacco Use Types Packs/Day Years [...] with a working camera? Not on file Education Answer Date Recorded What is the highest level of school you have completed or the highest degree you have received? 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 file Not on file Not on file documented as of this encounter Plan of Treatment Upcoming Encounters Date Type Department Care Team (Late st Contact Info) Description 08/07/2025 1:40 PM EST Office Visit [facility] Rheumatology [address] [place] [address] Carla Mercado MD, MPH [address] [place] [address], [address] [place] [address] [email or web address] 12/27/2025 1:00 PM EDT Office Visit [facility] Neurology [address] [place] [address] Arnaldo Mcdonough MD [address] [place] [address], [address] [place] [address] [email or web address] documented as of this encounter Visit Diagnoses Not on filedocumented in this encounter Additional Health Concerns Infection Onset Date Last Indicated Resolved Time CoV-Risk 05/19/2024 05/19/2024 05/30/2024 1:22 AM EDT CoV-Risk 08/29/2024 08/29/2024 09/09/2024 1:22 AM EST Assessment Noted Time PHQ-2 Depression Total Score: 0 10/11/19 10:22 AM EST documented as of this encounter Care Teams Industrial Diamond Polisher Relationship Specialty Start Date End Date Keiry Au, PREPRESS TECHNICIAN [address] [place] [address] [email or web address] PCP - General Internal Medicine 02/12/23 03/04/25 Chad Esposito DO [address] [place] [phone] [email or web address] PCP - General Internal Medicine 03/05/25 03/13/25 Keiry Au CNP [address] [place] [address] [email or web address] PCP - General Nurse Practitioner 03/14/25 Keiry Au CNP [address] [place] [address] Primary Care Physician 06/17/17 Laurie Eaton MD [address] [place] [address] Insurance Assigned Provider 12/04/23 12/03/24 Keiry Au CNP [address] [place] [phone] Insurance Assigned Provider 12/03/24 documented as of this encounter Additional Source Comments The information contained in this document represents components of the legal health record. It is not the complete legal health record.[facility]
--- OUTSIDE RECORDS SUMMARY | 2025-07-06 11:28 | XMS_ITS | Encounter Summary ---
Author Organization [facility] Address [address] [facility] [address] [place] [address] Phone Care Team Providers Care Petroleum Products District Supervisor Name Role Phone Keiry Au USABILITY STRATEGIST Unavailable PheKeiry freitas USABILITY STRATEGIST Unavailable PheKeiry freitas USABILITY STRATEGIST Primary Care Provider Reason for Visit * Reason Comments Med Change Request Encounter Details Date Type Department Care Team (Late st Contact Info) Description 07/02/2025 [facility] Rheumatology [address] [place] [address] Smiley De Leon MD [address] [facility], [address] [place] [address] [email or web address] Med Change Request Social History Tobacco Use Types Packs/Day Years [...] 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 Rx Care Gap Status - Instructions for Clinical Staff (prescriber discretion applies): > Mismatch review guide > N/a - No action needed Visit Info Last visit: 05/28/2025 Carla Mercado MD, MPH - Rheumatology [facility] > Requested f/u: Return in 2 months (on 08/07/2025). Upcoming visit: 08/07/2025 Carla Mercado MD, MPH - Rheumatology [facility] ACTIONS TAKEN BY Guerda Cyr MA Rx(s) without protocol Renewal is at prescriber discretion. - leflunomide Medication Refill 90 day supply? Last office visit: 05/28/2025 Next office visit: 08/07/2025 Last CBC w/diff Lab Results Component Value Date WBC 2.71 (L) 06/07/2025 RBC 4.44 06/07/2025 HGB 13.1 06/07/2025 HCT 40.2 06/07/2025 PLT 156 06/07/2025 MCV 90.5 06/07/2025 MCH 29.5 06/07/2025 MCHC 32.6 06/07/2025 RDW 12.2 06/07/2025 MVP 10.6 06/07/2025 NRBC 0.0 06/25/2012 NRBC 0.00 06/25/2012 NRBCA 0.00 06/07/2025 DIFMET Auto 06/07/2025 NEUT 47.5 (L) 06/07/2025 LYMP 35.1 06/07/2025 MON 14.0 (H) 06/07/2025 EOSP 3.0 06/07/2025 ANEU 1.29 (L) 06/07/2025 ALYMP 0.95 06/07/2025 AMONS 0.38 06/07/2025 AEOSN 0.08 06/07/2025 ABASOP 0.01 06/07/2025 BAND 1.0 10/17/2024 IMMGRAN 0.00 06/07/2025 Last CMP Lab Results Component Value Date NA 141 06/07/2025 K 4.5 06/07/2025 CL 105 06/07/2025 CO2 28 06/07/2025 BUN 18 06/07/2025 CRE 0.60 06/07/2025 GLU 93 06/07/2025 ALB 4.1 06/07/2025 TP 6.9 06/07/2025 CA 9.4 06/07/2025 ALKP 98 06/07/2025 TBILI 0.3 06/07/2025 SGOT 31 06/07/2025 SGPT 26 06/07/2025 GLOB 2.8 06/07/2025 GFR 97 06/07/2025 ANION 13 06/07/2025 Last CRP Lab Results Component Value Date CRPT 11.7 (H) 06/07/2025 HSCRP 0.2 07/31/2015 Last ESR ESR Date Value Ref Range Status 06/07/2025 31 (H) 0 - 30 mm/h Final documented in this encounter Plan of Treatment Upcoming Encounters Date Type Department Care Team (Late st Contact Info) Description 08/07/2025 1:40 PM EST Office Visit [facility] Rheumatology [address] [place] [address] Carla Mercado MD, MPH [address] [place] [address], [address] [place] [address] [email or web address] 12/27/2025 1:00 PM EDT Office Visit [facility] Neurology [address] [place] [address] Arnaldo Mcdonough MD [address] [place] [address], 2nd [place] [address] [email or web address] documented as of this encounter Visit Diagnoses Diagnosis Seropositive rheumatoid arthritis documented in this encounter Additional Health Concerns Assessment Noted Time PHQ-2 Depression Total Score: 2 10/06/19 25 1:26 PM EST documented as of this encounter Care Teams Petroleum Products District Supervisor Relationship Specialty Start Date End Date Keiry Au CNP [address] [facility] [address] [place] [address] [email or web address] PCP - General Nurse Practitioner 03/14/25 Keiry Au CNP [address] [place] [address] [place] [phone] Primary Care Physician 06/17/17 Keiry Au CNP [address] [place] [address] [place] [address] Insurance Assigned Provider 12/03/24 documented as of this encounter Additional Source Comments The information contained in this document represents components of the legal health record. It is not the complete legal health record.[facility]
--- OUTSIDE RECORDS SUMMARY | 2025-07-06 11:29 | XMS_ITS | Encounter Summary ---
Author Organization [facility] Address [address] [place] [address] Phone Care Team Providers Care Rn Iv Therapy Name Role Phone Smiley Saenz MD Unavailable PheKeiry freitas CNP Unavailable [phone] Laurie Eaton MD Unavailable [phone] Charlie Aguilar MD Unavailable Laurie Eaton MD Primary Care Provider [phone] PheKeiry freitas CNP Primary Care Provider Laurie Eaton MD Unavailable [phone] PheKeiry freitas CNP Primary Care Provider PheKeiry freitas CNP Unavailable [phone] Chad Esposito DO Primary Care Provider Keiry Au CNP Primary Care Provider Encounter Details Date Type Department Care Team (Late st Contact Info) Description 05/16/2020 Procedure Pass 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 Not on file Not on file documented as of this encounter Plan of Treatment Upcoming Encounters Date Type Department Care Team (Late st Contact Info) Description 08/07/2025 1:40 PM EST Office Visit [facility] Rheumatology [address] [place] [address] Carla Mercado MD, MPH [address] [place] [address], [address] [place] [address] [email or web address] 12/27/2025 1:00 PM EDT Office Visit [facility] Neurology [address] [place] [address] Arnaldo Mcdonough MD [address] [place] [address], [address] [place] [address] [email or web address] documented as of this encounter Visit Diagnoses Not on filedocumented in this encounter Additional Health Concerns Infection Onset Date Last Indicated Resolved Time CoV-Risk 05/19/2024 05/19/2024 05/30/2024 1:22 AM EDT CoV-Risk 08/29/2024 08/29/2024 09/09/2024 1:22 AM EST Assessment Noted Time PHQ-2 Depression Total Score: 0 10/04/19 11:01 AM EST documented as of this encounter Care Teams Rn Iv Therapy Relationship Specialty Start Date End Date Laurie Eaton MD [address] [place] [address] [place] [phone] [email or web address] PCP - General Internal Medicine 06/24/17 05/28/21 Keiry Au, KAY [address] [place] [address] [email or web address] PCP - General Internal Medicine 05/29/21 02/11/23 Keiry Au CNP [address] [place] [address] [email or web address] PCP - General Internal Medicine 02/12/23 03/04/25 Chad Esposito DO [address] [place] [phone] [email or web address] PCP - General Internal Medicine 03/05/25 03/13/25 Keiry Au CNP [address] [place] [address] [email or web address] PCP - General Nurse Practitioner 03/14/25 Smiley Saenz MD [address] [place] [address] [email or web address] Historical LMR Provider 01/10/15 05/28/21 Keiry Au CNP [address] [place] [address] [email or web address] Primary Care Physician 06/17/17 Laurie Eaton MD [address] [place] [address] [place] [address] [email or web address] Historical LMR Provider 06/17/17 1 Charlie Aguilar MD [address] [place] [address] Historical LMR Provider 06/17/17 Laurie Eaton MD [address] [place] [address] [email or web address] Insurance Assigned Provider 12/04/23 12/03/24 Keiry Au CNP [address] [place] [address] [email or web address] Insurance Assigned Provider 12/03/24 documented as of this encounter Additional Source Comments The information contained in this document represents components of the legal health record. It is not the complete legal health record.[facility]
--- OUTSIDE RECORDS SUMMARY | 2025-07-06 11:29 | XMS_ITS | Encounter Summary ---
Author Organization [facility] Address [address] [place] [address] Phone Care Team Providers Care Java Technical Manager Name Role Phone Keiry Au MECHANIC SOUND TECHNICIAN Unavailable Keiry Au MECHANIC SOUND TECHNICIAN Unavailable Keiry Au MECHANIC SOUND TECHNICIAN Primary Care Provider Reason for Visit * Reason Onset Date Comments Red Call SOB 05/30/2025 Encounter Details Date Type Department Care Team ([facility] st Contact Info) Description 05/30/2025 Telephone [facility] [place] [facility] [address] [facility] [address] [place], [place] [phone] Keiry Au, MECHANIC SOUND TECHNICIAN 14 [facility] [address] [place], [place] [phone] [email or web address] Red Call SOB Social History Tobacco Use Types Packs/Day Years [...] 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 Wish to be (Past 1 Month) No 05/30/2025 10:24 AM EDT Ruth Landrum RN 2. Non-Specific Active Suici mihir Thoughts (Past 1 Month) No 05/30/2025 10:24 AM EDT Hedy Landrum RN 6. Suicidal Behavior (Lifetime) No 10:24 AM EDT Ruth Landrum RN documented as of this encounter Progress Notes * Keiry Au CNP - 05/30/2025 12:35 PM EDT Okay, I am aware. * Sallie Saunders RN - 05/30/2025 10:42 AM EDT Pt currently in the ED. * Emely Villalba - 05/30/2025 10:31 AM EDT PT lm on the triage line reports nausea, SOB, and fatigue. Please advise. CSS Agent (Please do not reply to this user, as this inbox is not monitored. Thank you.) Thank you. documented in this encounter Plan of Treatment Upcoming Encounters Date Type Department Care Team (Late st Contact Info) Description 08/07/2025 1:40 PM EST Office Visit [facility] Rheumatology [address] [place] [address] Carla Mercado MD, MPH [address] [facility], [address] [place] [address] 12/27/2025 1:00 PM EDT [facility] Neurology [address] [place] [address] Arnaldo Mcdonough MD [address] [facility], 2nd [place] [address] [email or web address] documented as of this encounter Visit Diagnoses Not on filedocumented in this encounter Additional Health Concerns Assessment Noted Time PHQ-2 Depression Total Score: 2 10/06/19 25 1:26 PM EST documented as of this encounter Care Teams Java Technical Manager Relationship Specialty Start Date End Date Keiry Au CNP [address] [place] [address] [place] [address] PCP - General Nurse Practitioner 03/14/25 Keiry Au CNP [address] [place] [address] [place] [address] Primary Care Physician 06/17/17 Keiry Au CNP [address] [place] [address] [place] [address] Insurance Assigned Provider 12/03/24 documented as of this encounter Additional Source Comments The information contained in this document represents components of the legal health record. It is not the complete legal health record.[facility]
--- OUTSIDE RECORDS SUMMARY | 2025-07-06 11:29 | XMS_ITS | Encounter Summary ---
Author Organization [facility] Address [address] [place] [address] Phone Care Team Providers Care Stock Fitter Name Role Phone Keiry Au CNP Unavailable Laurie Eaton MD Unavailable [phone] Keiry Au CNP Primary Care Provider Keiry Au CNP Unavailable Chad Esposito DO Primary Care Provider Keiry Au CNP Primary Care Provider Encounter Details Date Type Department Care Team (Late st Contact Info) Description 09/15/2023 Procedure Pass [facility] [address] [place] [address] Social History Tobacco Use Types Packs/Day Years [...] 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 Date 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 Not on file Not on file documented as of this encounter Plan of Treatment Upcoming Encounters Date Type Department Care Team (Late st Contact Info) Description 08/07/2025 1:40 PM EST Office Visit [facility] Rheumatology [address] [place] [address] Carla Mercado MD, MPH [address] [place] [address], [address] [place] [address] [email or web address] 12/27/2025 1:00 PM EDT Office Visit [facility] Neurology [address] [place] [address] Arnaldo Mcdonough MD [address] [place] [address], 2[address] [place] [address] [email or web address] documented as of this encounter Visit Diagnoses Not on filedocumented in this encounter Additional Health Concerns Infection Onset Date Last Indicated Resolved Time CoV-Risk 05/19/2024 05/19/2024 05/30/2024 1:22 AM EDT CoV-Risk 08/29/2024 08/29/2024 09/09/2024 1:22 AM EST Assessment Noted Time PHQ-2 Depression Total Score: 0 09/24/19 24 12:29 PM EST documented as of this encounter Care Teams Stock Fitter Relationship Specialty Start Date End Date Keiry Au, PASTRY MIXER [address] [place] [address] PCP - General Internal Medicine 02/12/23 03/04/25 Chad Esposito DO [address] [place] [phone] [email or web address] PCP - General Internal Medicine 03/05/25 03/13/25 Keiry Au CNP [address] [place] [address] PCP - General Nurse Practitioner 03/14/25 Keiry Au CNP [address] [place] [address] Primary Care Physician 06/17/17 Laurie Eaton MD [address] [place] [phone] Insurance Assigned Provider 12/04/23 12/03/24 Keiry Au CNP [address] [place] [address] Insurance Assigned Provider 12/03/24 documented as of this encounter Additional Source Comments The information contained in this document represents components of the legal health record. It is not the complete legal health record.[facility]
--- OUTSIDE RECORDS SUMMARY | 2025-07-06 11:29 | XMS_ITS | Encounter Summary ---
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 Not on file Not on file documented as of this encounter Plan of Treatment Upcoming Encounters Date Type Department Care Team (Late st Contact Info) Description 08/07/2025 1:40 PM EST Office Visit [facility] Rheumatology [address] [place] [address] Carla Mercado MD, MPH [address] [place] [address], [facility] [address] [place] [address] 12/27/2025 1:00 PM EDT Office Visit [facility] Neurology [address] [place] [address] Arnaldo Mcdonough MD [address] [place] [address], [address] [place] [address] documented as of this encounter Visit Diagnoses Not on filedocumented in this encounter Additional Health Concerns Assessment Noted Time PHQ-2 Depression Total Score: 2 10/06/19 25 1:26 PM EST documented as of this encounter Care Teams Certified Forklift Operator Relationship Specialty Start Date End Date EspositoChad bae DO Mau [address] [place] [phone] [email or web address] PCP - General Internal Medicine 03/05/25 03/13/25 Keiry Au CNP [address] [place] [address] PCP - General Nurse Practitioner 03/14/25 Keiry Au CNP [address] [place] [address] Primary Care Physician 06/17/17 Keiry Au CNP [address] [place] [address] Insurance Assigned Provider 12/03/24 documented as of this encounter Additional Source Comments The information contained in this document represents components of the legal health record. It is not the complete legal health record.[facility]
--- OUTSIDE RECORDS SUMMARY | 2025-07-06 11:29 | XMS_ITS | Encounter Summary ---
Author Organization [facility] Address [address] [place] [address] Phone Care Team Providers Care Dividend Deposit Voucher Clerk Name Role Phone Keiry Au LOADING SHOVEL OILER Unavailable Keiry Au LOADING SHOVEL OILER Unavailable Keiry Au LOADING SHOVEL OILER Primary Care Provider Encounter Details Date Type Department Care Team (Late st Contact Info) Description 04/02/2025 Ancillary Orders [facility] Neurology [address] [place] [address] Keiry Au, LOADING SHOVEL OILER 14 [facility] [address] [place] [phone] [email or web address] Amaurosis fugax (Primary Dx) Social History Tobacco Use Types [...] 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 Not on file Not on file documented as of this encounter Plan of Treatment Upcoming Encounters Date Type Department Care Team (Late st Contact Info) Description 08/07/2025 1:40 PM EST Office Visit [facility] Rheumatology [address] [place] [address] [place] [address] Carla Mercado MD, MPH [address] [place] [address], [address] [place] [address] 12/27/2025 1:00 PM EDT Office Visit [facility] Neurology [address] [place] [address] [place] [address] Arnadlo Mcdonough MD [address] [place] [address], 2[address] [place] [address] documented as of this encounter Results * MCT (Mobile Cardiac Telemetry) (05/09/2025 3:57 [...] of atrial fibrillation were seen. 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 documented in this encounter Additional Health Concerns Assessment Noted Time PHQ-2 Depression Total Score: 2 10/06/19 25 1:26 PM EST documented as of this encounter Care Teams Dividend Deposit Voucher Clerk Relationship Specialty Start Date End Date Keiry Au CNP [address] [place] [address] [email or web address] PCP - General Nurse Practitioner 03/14/25 Keiry Au CNP [address] [place] [address] [place] [address] [email or web address] Primary Care Physician 06/17/17 Keiry Au CNP [address] [place] [address] [place] [address] [email or web address] Insurance Assigned Provider 12/03/24 documented as of this encounter Additional Source Comments The information contained in this document represents components of the legal health record. It is not the complete legal health record.[facility]
--- OUTSIDE RECORDS SUMMARY | 2025-07-06 11:29 | XMS_ITS | Encounter Summary ---
Author Organization Located [facility] Address [address] [place] [address] Phone Care Team Providers Care Film Librarian Name Role Phone Pcp, Not Required Primary Care Provider Unavaila Smiley Scales MD Unavailable Esmer Hunter Unavailable Unavailab Keiry Burton CNP Unavailable [phone] Laurie Eaton MD Unavailable Charlie Aguilar MD Unavailable Laurie Eaton MD Primary Care Provider [phone] PheKeiry freitas CNP Primary Care Provider Laurie Eaton MD Unavailable [phone] PheasantKeiry CNP Primary Care Provider Keiry Au CNP Unavailable [phone] Chad Esposito DO Primary Care Provider PheKeiry freitas CNP Primary Care Provider Encounter Details Date Type Department Care Team (Late st Contact Info) Description 08/14/2016 Procedure Pass Primary [facility] [address] [place] [address] Social History Tobacco Use Types Packs/Day Years Used Date Smoking Tobacco: Former Cigarettes Alcohol Use Standard Drinks/Week Comments Yes 2 (1 standard drink = 0.6 oz pur e alcohol) Comments Unknown Sex and Gender Information Value Date Recorded Sex Assigned at Female 05/01/2025 2:48 PM EDT Legal Sex Female 7:53 PM EST Gender Identity Female 03/26/2020 2:24 PM EDT Sexual Orientation Not on file documented as of this encounter Plan of Treatment Upcoming Encounters Date Type Department Care Team (Late st Contact Info) Description 08/07/2025 1:40 PM EST Office Visit [facility] Rheumatology [address] [place] [address] Carla Mercado MD, MPH [address] [place] [address], [address] [place] [address] [email or web address] 12/27/2025 1:00 PM EDT Office Visit [facility] Neurology [address] [place] [address] Arnaldo Mcdonough MD [address] [place] [address], 2nd [place] [address] [email or web address] documented as of this encounter Visit Diagnoses Not on filedocumented in this encounter Additional Health Concerns Infection Onset Date Last Indicated Resolved Time CoV-Risk 05/19/2024 05/19/2024 05/30/2024 1:22 AM EDT CoV-Risk 08/29/2024 08/29/2024 09/09/2024 1:22 AM EST documented as of this encounter Care Teams Film Librarian Relationship Specialty Start Date End Date Pcp, Not Required [address] [place] [address] PCP - General 07/05/14 06/23/17 Laurie Eaton MD 14 [facility] [address] [place] [address] [email or web address] PCP - General Internal Medicine 06/24/17 05/28/21 Keiry Au CNP [address] [place] [address] PCP - General Internal Medicine 05/29/21 02/11/23 Keiry Au CNP [address] [place] [address] PCP - General Internal Medicine 02/12/23 03/04/25 Chad Esposito DO [address] [place] [address] [phone] [email or web address] PCP - General Internal Medicine 03/05/25 03/13/25 Keiry Au CNP [address] [place] [address] PCP - General Nurse Practitioner 03/14/25 Smiley Saenz MD [address] [place] [address] [email or web address] Historical LMR Provider 01/10/15 05/28/21 Esmer Hunter LICSW Historical LMR Provider 06/17/17 08/15/17 Keiry Au CNP [address] [place] [address] Primary Care Physician 06/17/17 Laurie Eaton MD [address] [place] [address] [email or web address] Historical LMR Provider 06/17/17 1 Charlie Aguilar MD [address] [place] [address] Historical LMR Provider 06/17/17 Laurie Eaton MD [address] [place] [address] [place] [address] [email or web address] Insurance Assigned Provider 12/04/23 12/03/24 Keiry Au CNP [address] [place] [address] [place] [address] [email or web address] Insurance Assigned Provider 12/03/24 documented as of this encounter Additional Source Comments The information contained in this document represents components of the legal health record. It is not the complete legal health record.[facility]
--- OUTSIDE RECORDS SUMMARY | 2025-07-06 11:29 | XMS_ITS | Encounter Summary ---
Author Organization [facility] Address [address] [address] Phone Care Team Providers Care Superintendent Ammunition Storage Name Role Phone Keiry Au CNP Unavailable Keiry Au SHOTGUN SHELL ASSEMBLY MACHINE OPERATOR Unavailable Keiry Au SHOTGUN SHELL ASSEMBLY MACHINE OPERATOR Primary Care Provider Reason for Visit * Reason Onset Date Comments Injections 05/28/2025 Encounter Details Date Type Department Care Team (Late st Contact Info) Description 05/28/2025 Telephone [facility] Rheumatology [address] [place] [address] Carla Mercado MD, MPH 22 [facility], [address] [place] [address] [email or web address] Injections Social History Tobacco Use Types Packs/Day Years [...] 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 Date 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 Wish to be (Past 1 Month) No 05/30/2025 10:24 AM EDT Ruth Landrum RN 2. Non-Specific Active Suici mihir Thoughts (Past 1 Month) No 05/30/2025 10:24 AM EDT Hedy Landrum RN 6. Suicidal Behavior (Lifetime) No 10:24 AM EDT Ruth Landrum RN documented as of this encounter Progress Notes * Jacklyn Hopkins LPN - 05/28/2025 9:41 AM EDT Appt for today at 10:10 * Carla Mercado MD, MPH - 05/28/2025 9:07 AM EDT Yes that's fine ty * Jacklyn Hopkins LPN - 05/28/2025 8:[address] Mercado ok to schedule? * Melchor Roman - 05/28/2025 8:52 AM EDT Pt called to schedule an injection in her thumb joint. Pt stated that she discussed this with Dr. Mercado. Please contact and advise. Central Support Mate Chief (Please do not reply to this user; this inbox is not monitored.) Thank you. documented in this encounter Plan of Treatment Upcoming Encounters Date Type Department Care Team (Late st Contact Info) Description 08/07/2025 1:40 PM EST Office Visit [facility] Rheumatology [address] [place] [address] Carla Mercado MD, MPH [address] [facility], [address] [place] [address] 12/27/2025 1:00 PM EDT Office Visit [facility] Neurology [address] [place] [address] Arnaldo Mcdonough MD [address] [place] [address], [address] [place] [address] [email or web address] documented as of this encounter Visit Diagnoses Not on filedocumented in this encounter Additional Health Concerns Assessment Noted Time PHQ-2 Depression Total Score: 2 10/06/19 1:26 PM EST documented as of this encounter Care Teams Superintendent Ammunition Storage Relationship Specialty Start Date End Date Keiry Au CNP [address] [place] [address] PCP - General Nurse Practitioner 03/14/25 Keiry Au CNP [address] [place] [address] Primary Care Physician 06/17/17 Keiry Au CNP [address] [place] [address] [place] [address] Insurance Assigned Provider 12/03/24 documented as of this encounter Additional Source Comments The information contained in this document represents components of the legal health record. It is not the complete legal health record.[facility]
--- OUTSIDE RECORDS SUMMARY | 2025-07-06 11:29 | XMS_ITS | Encounter Summary ---
Author Organization [employer] [facility] Address [address] [place] [address] Phone Care Team Providers Care Oil Scout Name Role Phone Smiley Saenz MD Unavailable PheKeiry freitas CNP Unavailable [phone] Laurie Eaton MD Unavailable [phone] Charlie Aguilar MD Unavailable Laurie Eaton MD Primary Care Provider [phone] PheKeiry freitas CNP Primary Care Provider Laurie Eaton MD Unavailable [phone] PheKeiry freitas CNP Primary Care Provider Keiry Au CNP Unavailable [phone] Chad Esposito DO Primary Care Provider [phone] Keiry Au CNP Primary Care Provider Encounter Details Date Type Department Care Team (Late st Contact Info) Description 09/23/2020 Procedure Pass [facility] Admitting [facility] Department [address] [place] [address] Social History Tobacco Use Types Packs/Day Years Used Date Smoking Tobacco: Former Cigarettes 0.3 17 0 10/04/1968 - 10/04/1985 Smokeless Tobacco: Never Alcohol Use Standard Drinks/Week Comments Yes 14 (1 standard drink = 0.6 oz pu re alcohol) 2 drinks per day Education Answer Date Recorded What [...] 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 Not on file Not on file documented as of this encounter Plan of Treatment Upcoming Encounters Date Type Department Care Team (Late st Contact Info) Description 08/07/2025 1:40 PM EST Office Visit [facility] Rheumatology [address] [place] [address] Carla Mercado MD, MPH [address] [place] [address], [address] [place] [address] 12/27/2025 1:00 PM EDT Office Visit [facility] Neurology [address] [place] [address] Arnaldo Mcdonough MD [address] [place] [address], [address] [place] [address] [email or web address] documented as of this encounter Visit Diagnoses Not on filedocumented in this encounter Additional Health Concerns Infection Onset Date Last Indicated Resolved Time CoV-Risk 05/19/2024 05/19/2024 05/30/2024 1:22 AM EDT CoV-Risk 08/29/2024 08/29/2024 09/09/2024 1:22 AM EST Assessment Noted Time PHQ-2 Depression Total Score: 0 10/04/19 11:01 AM EST documented as of this encounter Care Teams Oil Scout Relationship Specialty Start Date End Date Laurie Eaton MD [address] [place] [address] [email or web address] PCP - General Internal Medicine 06/24/17 05/28/21 Keiry Au CNP [address] [place] [address] [email or web address] PCP - General Internal Medicine 05/29/21 02/11/23 Keiry Au CNP [address] [place] [address] PCP - General Internal Medicine 02/12/23 03/04/25 Chad Esposito DO [address] [place] [address] [phone] [email or web address] PCP - General Internal Medicine 03/05/25 03/13/25 Keiry Au CNP [address] [place] [address] [email or web address] PCP - General Nurse Practitioner 03/14/25 Smiley Saenz MD [address] [place] [address] [email or web address] Historical LMR Provider 01/10/15 05/28/21 Keiry Au CNP [address] [place] [address] [email or web address] Primary Care Physician 06/17/17 Laurie Eaton MD [address] [place] [address] [place] [address] [email or web address] Historical LMR Provider 06/17/17 1 Charlie Aguilar MD [address] [place] [address] Historical LMR Provider 06/17/17 Laurie Eaton MD [address] [place] [address] [email or web address] Insurance Assigned Provider 12/04/23 12/03/24 Keiry Au, KAY [address] [place] [address] [email or web address] Insurance Assigned Provider 12/03/24 documented as of this encounter Additional Source Comments The information contained in this document represents components of the legal health record. It is not the complete legal health record.[facility]
--- OUTSIDE RECORDS SUMMARY | 2025-07-06 11:29 | XMS_ITS | Encounter Summary ---
Author Organization [facility] Address [address] [facility] [address] [place] [address] Phone Care Team Providers Care Millinery Worker Name Role Phone Keiry Au SOFT TILE SETTER Unavailable Keiry Au SOFT TILE SETTER Unavailable PheKeiry freitas SOFT TILE SETTER Primary Care Provider Reason for Visit * Reason Comments Medication Refill Encounter Details Date Type Department Care Team (Late st Contact Info) Description 06/07/2025 Refill [facility] Rheumatology [address] [place] [address] Carla Mercado MD, MPH 22 [facility], [address] [place] [address] [email or web address] Medication Refill Social History Tobacco Use Types Packs/Day Years [...] 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 Date 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 She makes mention had her flu and covid vaccines 3 days prior to gettinglabs, just . States understanding of plan. * Smiley De Leon MD - 06/08/2025 9:46 AM EDT I reviewed patient's labs she has persistent neutropenia that appears chronic but is worse from prior. She recently started on leflunomide last month. Although her WBC is within her normal range it is in the lower end of her normal. Therefore I am going to refill the leflunomide but I would like her to repeat a CBC in 1 month, I will CC results to Dr. Mercado who manages her leflunomide. Please call patient to let her know that I have refilled the leflunomide only for a 30-day supply and request she gets blood work done towards the end of her prescription. * Guerda Cyr MA - 06/08/2025 8:54 AM EDT At least one Rx below has no [...] at prescriber discretion. - leflunomide Medication Refill Last office visit: 05/28/2025 Next office visit: [...] 31 (H) 0 - 30 mm/h Final * Guerda Cyr MA - 06/07/2025 8:26 AM EDT Labs in process documented in this encounter Plan of Treatment Upcoming Encounters Date Type Department Care Team (Late st Contact Info) Description 08/07/2025 1:40 PM EST Office Visit [facility] Rheumatology [address] [place] [address] [place] [address] Carla Mercado MD, MPH [address] [place] [address], [address] [place] [address] [email or web address] 12/27/2025 1:00 PM EDT Office Visit [facility] Neurology [address] [place] [address] [place] [address] Arnaldo Mcdonough MD [address] [place] [address], 2nd [place] [address] [email or web address] Scheduled Orders Name Type Priority Associated Diagnoses Orde r Schedule CBC and differential Lab Routine Seropositive rheumatoid arthritis Expected: 06/08/2025, Expires: 06/08/2026 documented as of this encounter Visit Diagnoses Diagnosis Seropositive rheumatoid arthritis documented in this encounter Additional Health Concerns Assessment Noted Time PHQ-2 Depression Total Score: 2 10/06/19 1:26 PM EST documented as of this encounter Care Teams Millinery Worker Relationship Specialty Start Date End Date Keiry Au CNP [address] [place] [address] [place] [address] [email or web address] PCP - General Nurse Practitioner 03/14/25 Keiry Au CNP [address] [place] [address] [place] [address] [email or web address] Primary Care Physician 06/17/17 Keiry Au CNP [address] [place] [address] [address] [place] [address] Insurance Assigned Provider 12/03/24 documented as of this encounter Additional Source Comments The information contained in this document represents components of the legal health record. It is not the complete legal health record.[facility]
--- OUTSIDE RECORDS SUMMARY | 2025-07-06 11:29 | XMS_ITS | Encounter Summary ---
Author Organization [facility] Address [address] [place] [address] Phone Care Team Providers Care Board Certified Family Physician Name Role Phone Keiry Au CNP Unavailable [phone] Keiry Au CNP Primary Care Provider Laurie Eaton MD Unavailable [phone] Keiry Au CNP Primary Care Provider Keiry Au CNP Unavailable [phone] Chad Esposito DO Primary Care Provider Keiry Au CNP Primary Care Provider Encounter Details Date Type Department Care Team (Late st Contact Info) Description 05/29/2022 Transcribe Orders Virtual Department [address] [place] [address] Keiry Au CNP 14 [facility] [address] [place] [address] [email or web address] Breast screening (Primary Dx) Social History Tobacco Use Types [...] have received? 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 Not on file Not on file Not on file documented as of this encounter Plan of Treatment Upcoming Encounters Date Type Department Care Team (Late st Contact Info) Description 08/07/2025 1:40 PM EST Office Visit [facility] Rheumatology [address] [place] [address] [place] [address] Carla Mercado MD, MPH [address] [place] [address], [address] [place] [address] [email or web address] 12/27/2025 1:00 PM EDT Office Visit [facility] Neurology [address] [place] [address] Arnaldo Mcdonough MD [address] [place] [address], 2[address] [place] [address] [email or web address] documented as of this encounter Results * BI MAMMOGRAM SCREENING WITH TOMOSYNTHESIS WITH CAD (BILATERAL) (09/02/2022 1:56 PM EST) Anatomical Region Laterality Modality Breast Left, Breast Right, Breast Bilateral Bila teral Mammography 09/02/2022 4:38 PM EST Impressions 09/02/2022 4:42 PM EST BILATERAL BREASTS: Benign, no evidence of malignancy. Recommend bilateral annual screening mammography in 12 months. Bi-RADS: BI-RADS CATEGORY: 2 - Benign finding. DENSITY: The breast tissue is heterogeneously dense, which could obscure a lesion on mammography. RIGHT RECOMMENDATION DUE DATE: 12 Months Recommendation: Right Mammography Screening LEFT RECOMMENDATION DUE DATE: 12 Months Recommendation: Left Mammography Screening Narrative 09/02/2022 4:42 PM EST STUDY: Bilateral screening mammography with tomosynthesis and CAD TECHNIQUE: Bilateral full-field digital screening mammography is obtained and read in conjunction with computer-aided detection. Tomosynthesis as well as 2-D C view imaging were obtained. COMPARISON: Comparison made to multiple prior studies dating back to March 2006. BILATERAL BREASTS: No new masses, suspicious calcifications or other abnormalities are seen. No significant interval change. Procedure Note Bigg Milner MD - 09/02/2022 STUDY: Bilateral screening mammography with tomosynthesis and CAD TECHNIQUE: Bilateral full-field digital screening mammography is obtainedand read in conjunction with computer-aided detection. Tomosynthesis aswell as 2-D C view imaging were obtained. COMPARISON: Comparison made to multiple prior studies dating back toMarch 2006. BILATERAL BREASTS: No new masses, suspicious calcifications or otherabnormalities are seen. No significant interval change. IMPRESSION: BILATERAL BREASTS: Benign, no evidence of malignancy. Recommend bilateralannual screening mammography in 12 months. Bi-RADS: BI-RADS CATEGORY: 2 - Benign finding. DENSITY: The breast tissue is heterogeneously dense, which could obscurea lesion on mammography. RIGHT RECOMMENDATION DUE DATE: 12 Months Recommendation: Right Mammography Screening LEFT RECOMMENDATION DUE DATE: 12 Months Recommendation: Left Mammography Screening [facility] QUALITY COORDINATOR IMG MG EXAMS Final Result documented in this encounter Visit Diagnoses Diagnosis Breast screening- Primary Breast screening, unspecified Breast screening Breast screening, unspecified documented in this encounter Additional Health Concerns Infection Onset Date Last Indicated Resolved Time CoV-Risk 05/19/2024 05/19/2024 05/30/2024 1:22 AM EDT CoV-Risk 08/29/2024 08/29/2024 09/09/2024 1:22 AM EST Assessment Noted Time PHQ-2 Depression Total Score: 0 10/11/19 10:22 AM EST documented as of this encounter Care Teams Board Certified Family Physician Relationship Specialty Start Date End Date Pheasant, Keiry Ana Laura, QUALITY COORDINATOR [address] [place] [address] PCP - General Internal Medicine 05/29/21 02/11/23 Keiry Au CNP [address] [place] [address] PCP - General Internal Medicine 02/12/23 03/04/25 Chad Esposito DO [address] [place] [address] [phone] [email or web address] PCP - General Internal Medicine 03/05/25 03/13/25 Keiry Au CNP [address] [place] [address] PCP - General Nurse Practitioner 03/14/25 Keiry Au CNP [address] [place] [address] Primary Care Physician 06/17/17 Laurie Eaton MD [address] [place] [address] Insurance Assigned Provider 12/04/23 12/03/24 Keiry Au CNP [address] [place] [address] Insurance Assigned Provider 12/03/24 documented as of this encounter Additional Source Comments The information contained in this document represents components of the legal health record. It is not the complete legal health record.[facility]
--- OUTSIDE RECORDS SUMMARY | 2025-07-06 11:29 | XMS_ITS | Encounter Summary ---
Author Organization [facility] Address [address] [place] [address] Phone Care Team Providers Care Building Coordinator Name Role Phone Keiry Au CNP Unavailable Keiry Au CNP Primary Care Provider Laurie Eaton MD Unavailable Keiry Au CNP Primary Care Provider Keiry Au CNP Unavailable [phone] Chad Esposito DO Primary Care Provider Keiry Au CNP Primary Care Provider Encounter Details Date Type Department Care Team (Late st Contact Info) Description 05/29/2022 Procedure Pass [facility], [address] [address] Social History Tobacco Use Types Packs/Day Years [...] 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 Date 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 Not on file Not on file documented as of this encounter Plan of Treatment Upcoming Encounters Date Type Department Care Team (Late st Contact Info) Description 08/07/2025 1:40 PM EST Office Visit [facility] Rheumatology [address] [place] [address] Carla Mercado MD, MPH [address] [place] [address], [address] [place] [address] [email or web address] 12/27/2025 1:00 PM EDT Office Visit [facility] Neurology [address] [place] [address] [place] [address] Arnaldo Mcdonough MD [address] [place] [address], 2nd [place] [address] [email or web address] documented as of this encounter Visit Diagnoses Not on filedocumented in this encounter Additional Health Concerns Infection Onset Date Last Indicated Resolved Time CoV-Risk 05/19/2024 05/19/2024 05/30/2024 1:22 AM EDT CoV-Risk 08/29/2024 08/29/2024 09/09/2024 1:22 AM EST Assessment Noted Time PHQ-2 Depression Total Score: 0 10/11/19 10:22 AM EST documented as of this encounter Care Teams Building Coordinator Relationship Specialty Start Date End Date Keiry Au CNP [address] [place] [address] [address] [place] [address] PCP - General Internal Medicine 05/29/21 02/11/23 Keiry Au CNP [address] [place] [address] [email or web address] PCP - General Internal Medicine 02/12/23 03/04/25 Chad Esposito DO [address] [place] [phone] [email or web address] PCP - General Internal Medicine 03/05/25 03/13/25 Keiry Au CNP [address] [place] [address] [email or web address] PCP - General Nurse Practitioner 03/14/25 Keiry Au CNP [address] [place] [address] Primary Care Physician 06/17/17 Laurie Eaton MD [address] [place] [address] Insurance Assigned Provider 12/04/23 12/03/24 Keiry Au CNP [address] [place] [phone] Insurance Assigned Provider 12/03/24 documented as of this encounter Additional Source Comments The information contained in this document represents components of the legal health record. It is not the complete legal health record.[facility]
--- OUTSIDE RECORDS SUMMARY | 2025-07-06 11:29 | XMS_ITS | Encounter Summary ---
Author Organization [facility] Address [address] [place] [address] Phone Care Team Providers Care Livestock Laborer Name Role Phone Keiry Au CNP Unavailable [phone] Keiry Au CNP Primary Care Provider Laurie Eaton MD Unavailable [phone] Keiry Au CNP Primary Care Provider Keiry Au CNP Unavailable Chad Esposito DO Primary Care Provider [phone] Keiry Au CNP Primary Care Provider Encounter Details Date Type Department Care Team (Late st Contact Info) Description 11/05/2022 Procedure Pass [facility], [address] [address] Social History Tobacco Use Types Packs/Day Years [...] 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 Not on file Not on file documented as of this encounter Last Filed Vital Signs Vital Sign Reading Time Taken Comments Blood Pressure - - Pulse - - Temperature - - Respiratory Rate - - Oxygen Saturation - - Inhaled Oxygen Concentration - - Weight 63.5 kg (140 lb) 11/06/2022 3:51 PM EST Height 162.6 cm (5' 4 ) 11/06/2022 3:51 PM EST Body Mass Index 24.03 11/06/2022 3:51 PM EST documented in this encounter Plan of Treatment Upcoming Encounters Date Type Department Care Team (Late st Contact Info) Description 08/07/2025 1:40 PM EST Office Visit [facility] Rheumatology [address] [place] [address] Carla Mercado MD, MPH [address] [place] [address], [address] [place] [address] [email or web address] 12/27/2025 1:00 PM EDT Office Visit [facility] Neurology [address] [place] [address] Arnaldo Mcdonough MD [address] [place] [address], 2nd [place] [address] [email or web address] documented as of this encounter Visit Diagnoses Not on filedocumented in this encounter Additional Health Concerns Infection Onset Date Last Indicated Resolved Time CoV-Risk 05/19/2024 05/19/2024 05/30/2024 1:22 AM EDT CoV-Risk 08/29/2024 08/29/2024 09/09/2024 1:22 AM EST Assessment Noted Time PHQ-2 Depression Total Score: 0 10/11/19 10:22 AM EST documented as of this encounter Care Teams Livestock Laborer Relationship Specialty Start Date End Date Keiry Au CNP [address] [place] [address] PCP - General Internal Medicine 05/29/21 02/11/23 Keiry Au CNP [address] [place] [address] PCP - General Internal Medicine 02/12/23 03/04/25 Chad Esposito DO [address] [place] [phone] [email or web address] PCP - General Internal Medicine 03/05/25 03/13/25 Keiry Au CNP [address] [place] [address] PCP - General Nurse Practitioner 03/14/25 Keiry Au CNP [address] [place] [address] Primary Care Physician 06/17/17 Laurie Eaton MD [address] [place] [address] Insurance Assigned Provider 12/04/23 12/03/24 Keiry Au CNP [address] [place] [address] Insurance Assigned Provider 12/03/24 documented as of this encounter Additional Source Comments The information contained in this document represents components of the legal health record. It is not the complete legal health record.[facility]
--- OUTSIDE RECORDS SUMMARY | 2025-07-06 11:29 | XMS_ITS | Encounter Summary ---
Author Organization [facility] Address [address] [facility] [address] [place] [address] Phone Care Team Providers Care Senior Director Of Strategy Name Role Phone Keiry Au DEICER REPAIRER ELECTRIC Unavailable Keiry Au DEICER REPAIRER ELECTRIC Unavailable Keiry Au DEICER REPAIRER ELECTRIC Primary Care Provider Encounter Details Date Type Department Care Team (Late st Contact Info) Description 04/09/2025 Telephone [email or web address] Rheumatology [address] [place] [address] Carla Mercado MD, MPH [address] [facility], [address] [place] [address] [email or web address] Social History Tobacco Use Types Packs/Day Years [...] 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 Rheumatology [address] [place] [address] [place] [address] Carla Mercado MD, MPH [address] [place] [address], [address] [place] [address] 12/27/2025 1:00 PM EDT Office Visit [facility] Neurology [address] [place] [address] [place] [address] Arnaldo Mcdonough MD [address] [place] [address], 2nd [place] [address] documented as of this encounter Visit Diagnoses Not on filedocumented in this encounter Additional Health Concerns Assessment Noted Time PHQ-2 Depression Total Score: 2 10/06/19 25 1:26 PM EST documented as of this encounter Care Teams Senior Director Of Strategy Relationship Specialty Start Date End Date Keiry Au CNP 14 [facility] [place] [facility] [address] [place] [address] PCP - General Nurse Practitioner 03/14/25 Keiry Au CNP 14 [facility] [place] [facility] [address] [place] [address] Primary Care Physician 06/17/17 Keiry Au CNP 14 [facility] [place] [facility] [address] [place] [address] Insurance Assigned Provider 12/03/24 documented as of this encounter Additional Source Comments The information contained in this document represents components of the legal health record. It is not the complete legal health record.[facility]
--- OUTSIDE RECORDS SUMMARY | 2025-07-06 11:29 | XMS_ITS | Encounter Summary ---
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 Not on file Not on file documented as of this encounter Plan of Treatment Upcoming Encounters Date Type Department Care Team (Late st Contact Info) Description 08/07/2025 1:40 PM EST Office Visit [facility] Rheumatology [address] [place] [address] Carla Mercado MD, MPH [address] [place] [address], [address] [place] [address] 12/27/2025 1:00 PM EDT Office Visit [facility] Neurology [address] [place] [address] [place] [address] Arnaldo Mcdonough MD [address] [place] [address], 2nd [place] [address] documented as of this encounter Visit Diagnoses Not on filedocumented in this encounter Additional Health Concerns Assessment Noted Time PHQ-2 Depression Total Score: 2 10/06/19 25 1:26 PM EST documented as of this encounter Care Teams Gi Tech Relationship Specialty Start Date End Date Keiry Au CNP 14 [facility] [place] [facility] [address] [place] [address] [email or web address] PCP - General Nurse Practitioner 03/14/25 Keiry Au CNP [address] [place] [address] [place] [address] [email or web address] Primary Care Physician 06/17/17 Keiry Au CNP 14 [facility] [place] [facility] [address] [place] [address] [email or web address] Insurance Assigned Provider 12/03/24 documented as of this encounter Additional Source Comments The information contained in this document represents components of the legal health record. It is not the complete legal health record.[facility]
--- OUTSIDE RECORDS SUMMARY | 2025-07-06 11:30 | XMS_ITS | Encounter Summary ---
Author Organization [employer] [facility] Address [address] [place] [address] Phone Care Team Providers Care Glass Melt Operator Name Role Phone Smiley Saenz MD Unavailable [phone] Esmer Hunter Unavailable Unavailab le Keiry Au CNP Unavailable [phone] Laurie Eaton MD Unavailable [phone] Charlie Aguilar MD Unavailable Laurie Eaton MD Primary Care Provider [phone] Keiry Au CNP Primary Care Provider Laurie Eaton MD Unavailable [phone] Keiry Au CNP Primary Care Provider Keiry Au CNP Unavailable [phone] Chad Esposito DO Primary Care Provider Keiry Au CNP Primary Care Provider Reason for Referral * Physical Therapy (Routine) - Closed Specialty Diagnoses / Procedures Referred By Madison t Referred To Contact Physical Therapy Diagnoses Encounter for rehabilitation System, Provider Not In, PhD [address] [place] [address] [place] [address] Phone: tel: Referral ID Status Reason Start Date Expiration Date Visits Re quested Visits Authorized [id number] Closed 07/26/2017 09/24/2017 9 9 * Physical Therapy (Routine) - Closed Specialty Diagnoses / Procedures Referred By Contac t Referred To Contact Physical Therapy Diagnoses Encounter for rehabilitation System, Provider Not In, PhD [facility] [id number] [place] [address] 30 [place] [address] Phone: tel: Referral ID Status Reason Start Date Expiration Date Visits Re quested Visits Authorized [id number] Closed 07/26/2017 09/24/2017 9 9 Encounter Details Date Type Department Care Team (Latest Contact Info) Description 07/19/2017 Transcribe Orders [facility] Rehabilitation Services [address] [place] [address] Sanaz Norris [address] [place] [address] [email or web address] Encounter for rehabilitation (Primary Dx) Social History Tobacco Use Types [...] Description 08/07/2025 1:40 PM EST Office Visit [facility] Rheumatology [address] [place] [address] Carla Mercado MD, MPH [address] [place] [address], [facility] [address] [place] [address] 12/27/2025 1:00 PM EDT Office Visit [facility] Neurology 22 [place] [address] Arnaldo Mcdonough MD 22 [facility], 2nd [place] [address] [email or web address] Scheduled Referrals Name Type Priority Associated Diagnoses Orde r Schedule Ambulatory referral to [facility] Physical Therapy Outpatient Referral Routine Encounter for rehabilitation Ordered: 07/29/2017 documented as of this encounter Procedures Procedure Name Priority Date/Time Associated Diagnosis Comments AMB REFERRAL TO [facility] PHYSICAL THERAPY Routine 07/26/2017 5:53 PM EST Encounter for rehabilitation documented in this encounter Results * Ambulatory referral to [facility] Physical Therapy (07/26/2017 5:53 PM EST) us Provider Not In System PhD AMB [facility] REFERRALS Fin al Result documented in this encounter Visit Diagnoses Diagnosis Encounter for rehabilitation- Primary documented in this encounter Additional Health Concerns Infection Onset Date Last Indicated Resolved Time CoV-Risk 05/19/2024 05/19/2024 05/30/2024 1:22 AM EDT CoV-Risk 08/29/2024 08/29/2024 09/09/2024 1:22 AM EST documented as of this encounter Care Teams Glass Melt Operator Relationship Specialty Start Date End Date Laurie Eaton MD [address] [place] [address] [place] [address] [email or web address] PCP - General Internal Medicine 06/24/17 05/28/21 Keiry Au, KAY [address] [place] [address] [place] [address] PCP - General Internal Medicine 05/29/21 02/11/23 Keiry Au CNP [address] [place] [address] [place] [address] PCP - General Internal Medicine 02/12/23 03/04/25 Chad Esposito DO [address] [place] [phone] [email or web address] PCP - General Internal Medicine 03/05/25 03/13/25 Keiry Au, DOCUMENTATION ENGINEER [address] [place] [address] [place] [address] [email or web address] PCP - General Nurse Practitioner 03/14/25 Smiley Saenz MD [address] [place] [address] [email or web address] LMR Provider 01/10/15 05/28/21 Esmer Hunter LICSW Historical LMR Provider 06/17/17 08/15/17 Keiry Au, DOCUMENTATION ENGINEER [address] [place] [address] Primary Care Physician 06/17/17 Laurie Eaton MD [address] [place] [address] [place] [address] [email or web address] Historical LMR Provider 06/17/17 1 Charlie Aguilar MD [address] [place] [address] Historical LMR Provider 06/17/17 Laurie Eaton MD [address] [place] [address] [place] [address] [email or web address] Insurance Assigned Provider 12/04/23 12/03/24 Keiry Au CNP [address] [place] [address] [address] [place] [address] [email or web address] Insurance Assigned Provider 12/03/24 documented as of this encounter Additional Source Comments The information contained in this document represents components of the legal health record. It is not the complete legal health record.[facility]
--- OUTSIDE RECORDS SUMMARY | 2025-07-06 11:30 | XMS_ITS | Encounter Summary ---
Author Organization [facility] Address [address] [place] [address] Phone Care Team Providers Care Investigator Claims Name Role Phone Keiry Au CNP Unavailable [phone] Keiry Au CNP Primary Care Provider Laurie Eaton MD Unavailable Keiry Au CNP Primary Care Provider Keiry Au CNP Unavailable Chad Esposito DO Primary Care Provider [phone] Keiry Au CNP Primary Care Provider Encounter Details Date Type Department Care Team (Late st Contact Info) Description 12/16/2022 Procedure Pass [facility], Ct Scan - [facility] [address] [place] [address] Social History Tobacco Use Types Packs/Day Years [...] 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 Date 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 Not on file Not on file documented as of this encounter Plan of Treatment Upcoming Encounters Date Type Department Care Team (Late st Contact Info) Description 08/07/2025 1:40 PM EST Office Visit [facility] Rheumatology [address] [place] [address] Carla Mercado MD, MPH [address] [place] [address], [address] [place] [address] [email or web address] 12/27/2025 1:00 PM EDT Office Visit [facility] Neurology [address] [place] [address] [place] [address] Arnaldo Mcdonough MD [address] [place] [address], 2nd [place] [address] [email or web address] documented as of this encounter Visit Diagnoses Not on filedocumented in this encounter Additional Health Concerns Infection Onset Date Last Indicated Resolved Time CoV-Risk 05/19/2024 05/19/2024 05/30/2024 1:22 AM EDT CoV-Risk 08/29/2024 08/29/2024 09/09/2024 1:22 AM EST Assessment Noted Time PHQ-2 Depression Total Score: 0 10/11/19 10:22 AM EST documented as of this encounter Care Teams Investigator Claims Relationship Specialty Start Date End Date Keiry Au CNP [address] [place] [address] PCP - General Internal Medicine 05/29/21 02/11/23 Keiry Au CNP [address] [place] [address] [email or web address] PCP - General Internal Medicine 02/12/23 03/04/25 Chad Esposito DO [address] [place] [phone] [email or web address] PCP - General Internal Medicine 03/05/25 03/13/25 Keiry Au CNP [address] [place] [address] [email or web address] PCP - General Nurse Practitioner 03/14/25 Keiry Au CNP [address] [place] [address] Primary Care Physician 06/17/17 Laurie Eaton MD [address] [place] [address] Insurance Assigned Provider 12/04/23 12/03/24 Keiry Au CNP [address] [place] [phone] Insurance Assigned Provider 12/03/24 documented as of this encounter Additional Source Comments The information contained in this document represents components of the legal health record. It is not the complete legal health record.[facility]
--- OUTSIDE RECORDS SUMMARY | 2025-07-06 11:30 | XMS_ITS | Encounter Summary ---
Author Organization [facility] Address [address] [place] [address] Phone Care Team Providers Care Retail Event Coordinator Name Role Phone Smiley Saenz MD Unavailable [phone] Esmer HunterSW Unavailable Unavailab le Keiry Au CNP Unavailable [phone] Laurie Eaton MD Unavailable Charlie Aguilar MD Unavailable Laurie Eaton MD Primary Care Provider [phone] Keiry Au CNP Primary Care Provider Laurie Eaton MD Unavailable [phone] Keiry Au CNP Primary Care Provider Keiry Au CNP Unavailable [phone] Chad Esposito DO Primary Care Provider Keiry Au CNP Primary Care Provider Encounter Details Date Type Department Care Team (Late st Contact Info) Description 06/24/2017 Ancillary Orders [facility] Medical [facility] Internal Medicine 14 [facility] [address] [place] [address] Laurie Eaton MD [address] [place] [address] [address] [place] [address] [email or web address] Visit for screening mammogram Social History Tobacco Use Types Packs/Day Years [...] Description 08/07/2025 1:40 PM EST Office Visit [facility] Rheumatology [address] [place] [address] Carla Mercado MD, MPH [address] [place] [address], [address] [place] [address] [email or web address] 12/27/2025 1:00 PM EDT Office Visit [facility] Neurology [address] [place] [address] [place] [address] Arnaldo Mcdonough MD [address] [place] [address], 2nd [place] [address] [email or web address] documented as of this encounter Results * BI MAMMOGRAM SCREENING WITH TOMOSYNTHESIS WITH CAD (BILATERAL) (08/05/2017 2:08 PM EST) Anatomical Region Laterality Modality Breast Left, Breast Right, Breast Bilateral Bila teral Mammography 08/06/2017 7:25 AM EST Impressions 08/06/2017 7:31 AM EST No mammographic change indicative of malignancy. Routine screening is recommended. BI-RADS CATEGORY: 2 - Benign finding. DENSITY: The breast tissue is heterogeneously dense, an appearance which lowers the sensitivity of mammography. POS - [id number] Narrative 08/06/2017 7:31 AM EST FINDINGS: Bilateral full-field digital screening mammography is obtained and read in conjunction with computer-aided detection. 3-D tomosynthesis as well as 2-D C view imaging is also performed. Comparison includes the most recent exam from 08/03/2016 and as far back as 06/18/2011. Breast parenchyma is heterogeneously dense, limiting mammographic sensitivity. Chronic circumscribed retroareolar mass on the left is stable. No new dominant mass, suspicious microcalcifications, architectural distortion, focal skin thickening, or new asymmetry is detected. Procedure Note Tyrone Cabello MD - 08/06/2017 FINDINGS: Bilateral full-field digital screening mammography is obtained and read inconjunction with computer-aided detection. 3-D tomosynthesis as well as2-D C view imaging is also performed. Comparison includes the most recentexam from 08/03/2016 and as far back as 06/18/2011. Breast parenchyma is heterogeneously dense, limiting mammographicsensitivity. Chronic circumscribed retroareolar mass on the left isstable. No new dominant mass, suspicious microcalcifications,architectural distortion, focal skin thickening, or new asymmetry isdetected. IMPRESSION: No mammographic change indicative of malignancy. Routine screening isrecommended. BI-RADS CATEGORY: 2 - Benign finding. DENSITY: The breast tissue is heterogeneously dense, an appearance whichlowers the sensitivity of mammography. POS - [id number] Laurie Eaton MD IM MG EXAMS Final Result documented in this encounter Visit Diagnoses Diagnosis Visit for screening mammogram Visit for screening mammogram documented in this encounter Additional Health Concerns Infection Onset Date Last Indicated Resolved Time CoV-Risk 05/19/2024 05/19/2024 05/30/2024 1:22 AM EDT CoV-Risk 08/29/2024 08/29/2024 09/09/2024 1:22 AM EST documented as of this encounter Care Teams Retail Event Coordinator Relationship Specialty Start Date End Date Laurie Eaton MD [address] [place] [address] [place] [address] PCP - General Internal Medicine 06/24/17 05/28/21 Keiry Au, KAY [address] [place] [address] PCP - General Internal Medicine 05/29/21 02/11/23 Keiry Au, KAY [address] [place] [address] PCP - General Internal Medicine 02/12/23 03/04/25 Chad Esposito DO [address] [place] [phone] [email or web address] PCP - General Internal Medicine 03/05/25 03/13/25 Keiry Au CNP [address] [place] [address] PCP - General Nurse Practitioner 03/14/25 Smiley Saenz MD [address] [place] [address] [email or web address] Historical LMR Provider 01/10/15 05/28/21 Esmer Hunter LICSW Historical LMR Provider 06/17/17 08/15/17 Keiry Au, KAY [address] [place] [address] Primary Care Physician 10/19/17 Laurie Eaton MD [address] [place] [address] [place] [address] [email or web address] Historical LMR Provider 06/17/17 1 Charlie Aguilar MD [address] [place] [address] Historical LMR Provider 06/17/17 Laurie Eaton MD [address] [place] [address] [place] [address] [email or web address] Insurance Assigned Provider 12/04/23 12/03/24 Keiry Au CNP [address] [place] [address] [place] [address] [email or web address] Insurance Assigned Provider 12/03/24 documented as of this encounter Additional Source Comments The information contained in this document represents components of the legal health record. It is not the complete legal health record.[facility]
--- OUTSIDE RECORDS SUMMARY | 2025-07-06 11:30 | XMS_ITS | Encounter Summary ---
Author Organization [facility] Address [address] [address] Phone Care Team Providers Care Manager Of Applications Development Name Role Phone Keiry Au CNP Unavailable Keiry Au HOSPICE LIAISON Unavailable Keiry Au HOSPICE LIAISON Primary Care Provider Encounter Details Date Type Department Care Team (Late st Contact Info) Description 05/04/2025 Procedure Pass [facility] [address] [place] [address] Social History Tobacco Use Types Packs/Day Years [...] as food, clothing, or medical care? No 05/01/2025 In the past 12 months have y ou been in a relationship with a person who hurts, threatens, or tries to control you? No 05/01/2025 Are you denied basic needs s uch as food, clothing, or medical care? No 05/01/2025 In the past 12 months have y ou been in a relationship with a person who hurts, threatens, or tries to control you? 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 file Not on file Not on file documented as of this encounter Plan of Treatment Upcoming Encounters Date Type Department Care Team (Late st Contact Info) Description 08/07/2025 1:40 PM EST Office Visit [facility] Rheumatology [address] [place] [address] aCrla Mercado MD, MPH [address] [place] [address], [address] [place] [address] 12/27/2025 1:00 PM EDT Office Visit [facility] Neurology [address] [place] [address] Arnaldo Mcdonough MD [address] [place] [address], 2nd [place] [address] [email or web address] documented as of this encounter Visit Diagnoses Not on filedocumented in this encounter Additional Health Concerns Assessment Noted Time PHQ-2 Depression Total Score: 2 10/06/19 25 1:26 PM EST documented as of this encounter Care Teams Manager Of Applications Development Relationship Specialty Start Date End Date Keiry Au CNP [address] [place] [address] [place] [address] [email or web address] PCP - General Nurse Practitioner 03/14/25 Keiry Au CNP [address] [place] [address] [place] [address] [email or web address] Primary Care Physician 06/17/17 Keiry Au CNP 14 [facility] [address] [place] [address] [email or web address] Insurance Assigned Provider 12/03/24 documented as of this encounter Additional Source Comments The information contained in this document represents components of the legal health record. It is not the complete legal health record.[facility]
--- OUTSIDE RECORDS SUMMARY | 2025-07-06 11:30 | XMS_ITS | Encounter Summary ---
Author Organization [facility] Address [address] [place], [place] [id number] Phone Care Team Providers Care Securities Underwriter Name Role Phone Keiry Au CNP Unavailable Keiry Au CNP Primary Care Provider Laurie Eaton MD Unavailable [phone] Keiry Au CNP Primary Care Provider Keiry Au CNP Unavailable Chad Esposito DO Primary Care Provider Keiry Au CNP Primary Care Provider Reason for Referral * MRI/CAT Scan - Closed Specialty Diagnoses / Procedures Referred By Contsuze t Referred To Contact Radiology Diagnoses Primary osteoarthritis, right ankle and foot Procedures CT Foot (Right) Dionisio Su MD [address] [place] [address] Phone: tel: fax: [email or web address] Referral ID Status Reason Start Date Expiration Date Visits Re quested Visits Authorized [id number] Closed 12/16/2022 12/16/2023 1 1 Encounter Details Date Type Department Care Team (Late Contact Info) Description 12/16/2022 Transcribe Orders Virtual Department [address] [place] [address] Dionisio Su MD [address] [phone] 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 Not on file Not on file documented as of this encounter Plan of Treatment Upcoming Encounters Date Type Department Care Team (Late Contact Info) Description 08/07/2025 1:40 PM EST Office Visit [facility] Rheumatology [address] [place] [address] [place] [address] Carla Mercado MD, MPH [address] [place] [address], [address] [place] [address] 12/27/2025 1:00 PM EDT Office Visit [facility] Neurology [address] [place] [address] [place] [address] Arnaldo Mcdonough MD [address] [place] [address], 2nd [place] [address] (work) [email or web address] documented as of this encounter Results * CT FOOT WITHOUT CONTRAST (RIGHT) (12/18/2022 10:51 AM EDT) Anatomical Region Laterality Modality Foot Right Computed Tomogra phy 12/18/2022 5:14 PM EDT Impressions 12/18/2022 5:24 PM EDT First MTP arthrodesis without evidence of solid osseous bridging. Intact appearing hardware. Narrative 12/18/2022 5:[address] FOOT WITHOUT CONTRAST (RIGHT) TECHNIQUE: Multidetector-row CT of the foot, without intravenous contrast using dose-modulation techniques. Images were reconstructed in the axial, coronal, and sagittal planes. COMPARISON: None FINDINGS: Postoperative changes reflecting arthrodesis of the first MTP joint by means of a dorsal plate-screw construct. No evidence of solid bridging across this joint space. No acute fracture. No dislocation. Mild degenerative changes of the talonavicular joint. Procedure Note George Maldonado MD - 12/18/2022 CT FOOT WITHOUT CONTRAST (RIGHT) TECHNIQUE: Multidetector-row CT of the foot, without intravenous contrastusing dose-modulation techniques. Images were reconstructed in the axial,coronal, and sagittal planes. COMPARISON: None FINDINGS: Postoperative changes reflecting arthrodesis of the first MTP joint bymeans of a dorsal plate-screw construct. No evidence of solid bridgingacross this joint space. No acute fracture. No dislocation. Mild degenerative changes of the talonavicular joint. IMPRESSION: First MTP arthrodesis without evidence of solid osseous bridging. Intactappearing hardware. Dionisio Su MD IM CT EXTREMITY Final Re sult documented in this encounter Visit Diagnoses Diagnosis Primary osteoarthritis, right ankle and foot- Primary Primary osteoarthritis, right ankle and foot documented in this encounter Additional Health Concerns Infection Onset Date Last Indicated Resolved Time CoV-Risk 05/19/2024 05/19/2024 05/30/2024 1:22 AM EDT CoV-Risk 08/29/2024 08/29/2024 09/09/2024 1:22 AM EST Assessment Noted Time PHQ-2 Depression Total Score: 0 10/11/19 10:22 AM EST documented as of this encounter Care Teams Securities Underwriter Relationship Specialty Start Date End Date Keiry Au CNP [address] [place] [address] PCP - General Internal Medicine 05/29/21 02/11/23 Keiry Au CNP [address] [place] [address] PCP - General Internal Medicine 02/12/23 03/04/25 Chad Esposito DO [address] [place] [phone] [email or web address] - General Internal Medicine 03/05/25 03/13/25 Keiry Au CNP [address] [place] [address] [email or web address] PCP - General Nurse Practitioner 03/14/25 Keiry Au CNP [address] [place] [address] Primary Care Physician 06/17/17 Laurie Eaton MD [address] [place] [address] [email or web address] Insurance Assigned Provider 12/04/23 12/03/24 Keiry Au, KAY [address] [place] [address] [address] [place] [address] [email or web address] Insurance Assigned Provider 12/03/24 documented as of this encounter Additional Source Comments The information contained in this document represents components of the legal health record. It is not the complete legal health record.[facility]
--- OUTSIDE RECORDS SUMMARY | 2025-07-06 11:32 | XMS_ITS | Encounter Summary ---
Author Organization [facility] Address [address] [place] [address] Phone Care Team Providers Care Cathode Ray Tube Assembler Name Role Phone Keiry Au CNP Unavailable Keiry Au CNP Primary Care Provider Laurie Eaton MD Unavailable Keiry Au CNP Primary Care Provider Keiry Au CNP Unavailable Chad Esposito DO Primary Care Provider Keiry Au CNP Primary Care Provider Encounter Details Date Type Department Care Team (Late st Contact Info) Description 06/17/2021 Procedure Pass [facility] [address] [place] [address] Social History Tobacco Use Types Packs/Day Years Used Date Smoking Tobacco: Former Cigarettes 0.3 17 0 10/04/1968 - 10/04/1985 Smokeless Tobacco: Never Alcohol Use Standard Drinks/Week Comments Yes 14 (1 standard drink = 0.6 oz pu re alcohol) Education Answer Date Recorded What is the [...] 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 Not on file Not on file documented as of this encounter Plan of Treatment Upcoming Encounters Date Type Department Care Team (Late st Contact Info) Description 08/07/2025 1:40 PM EST Office Visit [facility] Rheumatology [address] [place] [address] [place] [address] Carla Mercado MD, MPH [address] [place] [address], [address] [place] [address] 12/27/2025 1:00 PM EDT Office Visit [facility] Neurology [address] [place] [address] [place] [address] Arnaldo Mcdonough MD [address] [place] [address], 2nd [place] [address] [email or web address] documented as of this encounter Visit Diagnoses Not on filedocumented in this encounter Additional Health Concerns Infection Onset Date Last Indicated Resolved Time CoV-Risk 05/19/2024 05/19/2024 05/30/2024 1:22 AM EDT CoV-Risk 08/29/2024 08/29/2024 09/09/2024 1:22 AM EST Assessment Noted Time PHQ-2 Depression Total Score: 0 10/05/19 9:38 AM EST documented as of this encounter Care Teams Cathode Ray Tube Assembler Relationship Specialty Start Date End Date Keiry Au CNP [address] [place] [address] [place] [address] PCP - General Internal Medicine 05/29/21 02/11/23 Keiry Au CNP [address] [address] PCP - General Internal Medicine 02/12/23 03/04/25 Chad Esposito DO [address] [place] [phone] [email or web address] PCP - General Internal Medicine 03/05/25 03/13/25 Keiry Au CNP [address] [place] [address] PCP - General Nurse Practitioner 03/14/25 Keiry Au CNP [address] [place] [address] Primary Care Physician 06/17/17 Laurie Eaton MD [address] [place] [address] Insurance Assigned Provider 12/04/23 12/03/24 Keiry Au CNP [address] [place] [address] Insurance Assigned Provider 12/03/24 documented as of this encounter Additional Source Comments The information contained in this document represents components of the legal health record. It is not the complete legal health record.[facility]
--- OUTSIDE RECORDS SUMMARY | 2025-07-06 11:32 | XMS_ITS | Encounter Summary ---
Author Organization [facility] Address [address] [place] [address] Phone Care Team Providers Care Emergency Dispatcher Name Role Phone Keiry Au CNP Unavailable Keiry Au CNP Primary Care Provider Laurie Eaton MD Unavailable Keiry Au CNP Primary Care Provider Keiry Au CNP Unavailable Chad Esposito DO Primary Care Provider Keiry Au CNP Primary Care Provider Encounter Details Date Type Department Care Team (Late st Contact Info) Description 06/17/2021 Transcribe Orders Virtual Department [address] [place] [address] Keiry Au CNP 14 [facility] [address] [place] [address] [email or web address] Breast screening (Primary Dx) Social History Tobacco [...] 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 Date 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 Not on file Not on file documented as of this encounter Plan of Treatment Upcoming Encounters Date Type Department Care Team (Late st Contact Info) Description 08/07/2025 1:40 PM EST Office Visit [facility] Rheumatology [address] [place] [address] Carla Mercado MD, MPH [address] [place] [address], [address] [place] [address] [email or web address] 12/27/2025 1:00 PM EDT Office Visit [facility] Neurology [address] [place] [address] Arnaldo Mcdonough MD [address] [place] [address], 2nd [place] [address] [email or web address] documented as of this encounter Results * BI MAMMOGRAM SCREENING WITH TOMOSYNTHESIS WITH CAD (BILATERAL) (08/25/2021 1:31 PM EST) Anatomical Region Laterality Modality Breast Left, Breast Right, Breast Bilateral Bila teral Mammography 08/25/2021 2:50 PM EST Impressions 08/25/2021 2:55 PM EST BILATERAL BREASTS: Benign, no evidence of malignancy. Normal interval follow-up is recommended in 12 months. Bi-RADS: BI-RADS CATEGORY: 2 - Benign finding. DENSITY: The breast tissue is heterogeneously dense, which could obscure a lesion on mammography. Narrative 08/25/2021 2:55 PM EST STUDY: Bilateral screening mammography with tomosynthesis and CAD TECHNIQUE: Bilateral full-field digital screening mammography is obtained and read in conjunction with computer-aided detection. Tomosynthesis as well as 2-D C view imaging were obtained. COMPARISON: Comparison made to multiple prior, most recent August 15, 2020, and most remote July 12, 2015. BREAST COMPOSITION: The breast tissue is heterogeneously dense, which may obscure small masses. RIGHT BREAST: History of previous biopsy. No significant masses, suspicious calcifications or other abnormalities are seen. LEFT BREAST: No new masses, suspicious calcifications or other abnormalities are seen. Procedure Note Marybeth Falk MD - 08/25/2021 STUDY: Bilateral screening mammography with tomosynthesis and CAD TECHNIQUE: Bilateral full-field digital screening mammography is obtainedand read in conjunction with computer-aided detection. Tomosynthesis aswell as 2-D C view imaging were obtained. COMPARISON: Comparison made to multiple prior, most recent July, and most remote July 12, 2015. BREAST COMPOSITION: The breast tissue is heterogeneously dense, which mayobscure small masses. RIGHT BREAST: History of previous biopsy. No significant masses,suspicious calcifications or other abnormalities are seen. LEFT BREAST: No new masses, suspicious calcifications or otherabnormalities are seen. IMPRESSION: BILATERAL BREASTS: Benign, no evidence of malignancy. Normal intervalfollow-up is recommended in 12 months. Bi-RADS: BI-RADS CATEGORY: 2 - Benign finding. DENSITY: The breast tissue is heterogeneously dense, which could obscurea lesion on mammography. Keiry Au [facility] IMG MG EXAMS Final Result documented in [...] documented as of this encounter Care Teams Emergency Dispatcher Relationship Specialty Start Date End Date Keiry Au CNP [address] [place] [address] PCP - General Internal Medicine 05/29/21 02/11/23 Keiry Au CNP [address] [place] [address] PCP - General Internal Medicine 02/12/23 03/04/25 Chad Esposito DO [address] [place] [phone] [email or web address] PCP - General Internal Medicine 03/05/25 03/13/25 Keiry Au CNP [address] [place] [address] PCP - General Nurse Practitioner 03/14/25 Keiry Au CNP [address] [place] [address] [email or web address] Primary Care Physician 06/17/17 Laurie Eaton MD [address] [place] [address] [email or web address] Insurance Assigned Provider 12/04/23 12/03/24 Keiry Au CNP [address] [place] [address] [email or web address] Insurance Assigned Provider 12/03/24 documented as of this encounter Additional Source Comments The information contained in this document represents components of the legal health record. It is not the complete legal health record.[facility]
--- OUTSIDE RECORDS SUMMARY | 2025-07-06 11:33 | XMS_ITS | Encounter Summary ---
Author Organization [facility] Address [address] [place] [address] Phone Care Team Providers Care Medical Instructor Name Role Phone Smiley Saenz MD Unavailable PheKeiry freitas CNP Unavailable [phone] Laurie Eaton MD Unavailable [phone] Charlie Aguilar MD Unavailable Laurie Eaton MD Primary Care Provider [phone] PheKeiry freitas CNP Primary Care Provider Laurie Eaton MD Unavailable [phone] Keiry Au CNP Primary Care Provider Keiry Au CNP Unavailable [phone] Chad Esposito DO Primary Care Provider Keiry Au CNP Primary Care Provider Reason for Referral * Physical Therapy (Routine) - Closed Specialty Diagnoses / Procedures Referred By Contsuze t Referred To Contact Physical Therapy Diagnoses Encounter for rehabilitation System, Provider Not In, [facility] [address] [place] [address] Phone: tel: Referral ID Status Reason Start Date Expiration Date Visits Re quested Visits Authorized [id number] Closed 11/01/2017 04/15/2018 30 30 Encounter Details Date Type Department Care Team (Latest Contact Info) Description 10/22/2017 Transcribe Orders [facility] Rehabilitation Services [address] [place] [address] Gold Gu MD [address], [address] [place] [phone] Encounter for rehabilitation (Primary Dx) Social History [...] Office Visit [facility] Rheumatology [address] [place] [address] Carla Mercado MD, MPH [address] [place] [address], [address] [place] [address] [email or web address] 12/27/2025 1:00 PM EDT Office Visit [facility] Neurology [address] [place] [address] Arnaldo Mcdonough MD [address] [place] [address], 2nd [place] [address] [email or web address] Scheduled Referrals Name Type Priority Associated Diagnoses Orde r Schedule Ambulatory referral to [facility] Physical Therapy Outpatient Referral Routine Encounter for rehabilitation Ordered: 10/22/2017 documented as of this encounter Visit Diagnoses Diagnosis Encounter for rehabilitation- Primary documented in this encounter Additional Health Concerns Infection Onset Date Last Indicated Resolved Time CoV-Risk 05/19/2024 05/19/2024 05/30/2024 1:22 AM EDT CoV-Risk 08/29/2024 08/29/2024 09/09/2024 1:22 AM EST documented as of this encounter Care Teams Medical Instructor Relationship Specialty Start Date End Date Laurie Eaton MD [address] [place] [address] [email or web address] PCP - General Internal Medicine 06/24/17 05/28/21 Keiry Au CNP [address] [place] [address] [email or web address] PCP - General Internal Medicine 05/29/21 02/11/23 Keiry Au CNP [address] [place] [address] PCP - General Internal Medicine 02/12/23 03/04/25 Chad Esposito DO [address] [place] [phone] [email or web address] PCP - General Internal Medicine 03/05/25 03/13/25 Keiry Au CNP [address] [place] [address]274 PCP - General Nurse Practitioner 03/14/25 Smiley Saenz MD [address] [place] [address] [email or web address] Historical LMR Provider 01/10/15 05/28/21 Keiry Au CNP [address] [place] [address] [place] [address] Primary Care Physician 06/17/17 Laurie Eaton MD [address] [place] [address] Historical LMR Provider 06/17/17 1 Cahrlie Aguilar MD [address] [place], [place] [phone] Historical LMR Provider 06/17/17 Laurie Eaton MD [address] [place] [address] Insurance Assigned Provider 12/04/23 12/03/24 Keiry Au, KAY [address] [place] [address]70 Insurance Assigned Provider 12/03/24 documented as of this encounter Additional Source Comments The information contained in this document represents components of the legal health record. It is not the complete legal health record.[facility]
--- OUTSIDE RECORDS SUMMARY | 2025-07-06 11:34 | XMS_ITS | Encounter Summary ---
Author Organization [facility] Address [address] [place] [phone] Phone Care Team Providers Care Processing Manager Name Role Phone Keiry Au CNP Unavailable Keiry Au CNP Primary Care Provider Laurie Eaton MD Unavailable Keiry Au CNP Primary Care Provider Keiry Au CNP Unavailable [phone] Chad Esposito DO Primary Care Provider Keiry Au CNP Primary Care Provider Encounter Details Date Type Department Care Team (Late st Contact Info) Description 12/25/2022 Procedure Pass 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 Not on file Not on file documented as of this encounter Plan of Treatment Upcoming Encounters Date Type Department Care Team (Late st Contact Info) Description 08/07/2025 1:40 PM EST Office Visit [facility] Rheumatology [address] [place] [address] [place] [address] Carla Mercado MD, MPH [address] [place] [address], [address] [place] [address] 12/27/2025 1:00 PM EDT Office Visit [facility] Neurology [address] [place] [address] [place] [address] Arnaldo Mcdonough MD [address] [place] [address], 2[address] [place] [address] [email or web address] documented as of this encounter Visit Diagnoses Not on filedocumented in this encounter Additional Health Concerns Infection Onset Date Last Indicated Resolved Time CoV-Risk 05/19/2024 05/19/2024 05/30/2024 1:22 AM EDT CoV-Risk 08/29/2024 08/29/2024 09/09/2024 1:22 AM EST Assessment Noted Time PHQ-2 Depression Total Score: 0 10/11/19 10:22 AM EST documented as of this encounter Care Teams Processing Manager Relationship Specialty Start Date End Date Keiry Au CNP [address] [place] [address] [place] [address] PCP - General Internal Medicine 05/29/21 02/11/23 Keiry Au CNP [address] [place] [address] PCP - General Internal Medicine 02/12/23 03/04/25 Chad Esposito DO [address] [place] [phone] [email or web address] PCP - General Internal Medicine 03/05/25 03/13/25 Keiry Au CNP [address] [place] [address] PCP - General Nurse Practitioner 03/14/25 Keiry Au CNP [address] [place] [address] Primary Care Physician 06/17/17 Laurie Eaton MD [address] [place] [phone] Insurance Assigned Provider 12/04/23 12/03/24 Keiry Au CNP [address] [place] [address] Insurance Assigned Provider 12/03/24 documented as of this encounter Additional Source Comments The information contained in this document represents components of the legal health record. It is not the complete legal health record.[facility]
--- OUTSIDE RECORDS SUMMARY | 2025-07-06 11:34 | XMS_ITS | Encounter Summary ---
Author Organization [facility] Address [address] [place], [place] [phone] Phone Care Team Providers Care Christmas Tree Farm Worker Name Role Phone Keiry Au CNP Unavailable Keiry Au CNP Primary Care Provider Laurie Eaton MD Unavailable Keiry Au CNP Primary Care Provider Keiry Au CNP Unavailable Chad Esposito DO Primary Care Provider [phone] Keiry Au CNP Primary Care Provider Reason for Referral * MRI/CAT Scan - Closed Specialty Diagnoses / Procedures Referred By Contac t Referred To Contact Radiology Diagnoses Primary osteoarthritis, right ankle and foot Procedures CT Foot (Right) Dionisio Su MD [address] [place] [address] Phone: tel: fax: [email or web address] Referral ID Status Reason Start Date Expiration Date Visits Re quested Visits Authorized [id number] Closed 12/25/2022 1 1 Encounter Details Date Type Department Care Team (Late Contact Info) Description 12/25/2022 Transcribe Orders Virtual Department [address] [place] [address] Dionisio Su MD [address] [phone] 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 on file Not on file Not on file documented as of this encounter Plan of Treatment Upcoming Encounters Date Type Department Care Team (Late Contact Info) Description 08/07/2025 1:40 PM EST Office Visit [facility] Rheumatology [address] [place] [address] Carla Mercado MD, MPH [address] [facility], [address] [address] 12/27/2025 1:00 PM EDT Office Visit [facility] Neurology [address] [place] [address] Arnaldo Mcdonough MD [address] [place] [address], 2nd [place] [address] [email or web address] documented as of this encounter Results * CT FOOT WITHOUT CONTRAST (RIGHT) (02/12/2023 9:55 AM EDT) Anatomical Region Laterality Modality Foot Right Computed Tomogra phy 02/17/2023 1:13 PM EDT Impressions 02/17/2023 1:48 PM EDT No significant change from 12/18/2022. Narrative 02/17/2023 1:[address] FOOT WITHOUT CONTRAST (RIGHT) HISTORY: Status post fusion of first MTP joint, follow-up. TECHNIQUE: Multidetector-row CT of the foot, without intravenous contrast using dose-modulation techniques. Images were reconstructed in the axial, coronal, and sagittal planes. COMPARISON: CT right foot 12/18. FINDINGS: Bones and Joints: Orthopedic plate and screws remain in place within the first metatarsal and proximal phalanx and appear intact and unchanged in appearance. Similar narrowing of the joint space but no solid bony bridging across the first MTP joint. The appearance is very similar to 12/18/2022. No suspicious lucencies or suspicious areas of sclerosis within the bones. No evidence of acute fractures. No subluxation or dislocation. No other significant changes. Soft Tissues: No evidence of soft tissue masses or focal fluid collections. Procedure Note Trell Mann MD - 02/17/2023 CT FOOT WITHOUT CONTRAST (RIGHT) HISTORY: Status post fusion of first MTP joint, follow-up. TECHNIQUE: Multidetector-row CT of the foot, without intravenous contrastusing dose-modulation techniques. Images were reconstructed in the axial,coronal, and sagittal planes. COMPARISON: CT right foot 12/18. FINDINGS: Bones and Joints: Orthopedic plate and screws remain in place within thefirst metatarsal and proximal phalanx and appear intact and unchanged inappearance. Similar narrowing of the joint space but no solid bonybridging across the first MTP joint. The appearance is very similar to12/18/2022. No suspicious lucencies or suspicious areas of sclerosis withinthe bones. No evidence of acute fractures. No subluxation or dislocation.No other significant changes. Soft Tissues: No evidence of soft tissue masses or focal fluidcollections. IMPRESSION: No significant change from 12/18/2022. us Dionisio Su MD IMG CT EXTREMITY Final Re sult documented in [...] documented as of this encounter Care Teams Christmas Tree Farm Worker Relationship Specialty Start Date End Date Keiry Au CNP [address] [place] [address] [email or web address] PCP - General Internal Medicine 05/29/21 02/11/23 Keiry Au CNP [address] [place] [address] PCP - General Internal Medicine 02/12/23 03/04/25 Chad Esposito DO [address] [place] [phone] [email or web address] PCP - General Internal Medicine 03/05/25 03/13/25 Keiry Au CNP [address] [place] [address] [place] [address] PCP - General Nurse Practitioner 03/14/25 Keiry Au CNP [address] [place] [address] Primary Care Physician 06/17/17 Laurie Eaton MD [address] [place] [address] Insurance Assigned Provider 12/04/23 12/03/24 Keiry Au CNP [address] [place] [address] [phone] Insurance Assigned Provider 12/03/24 documented as of this encounter Additional Source Comments The information contained in this document represents components of the legal health record. It is not the complete legal health record.[facility]
--- OUTSIDE RECORDS SUMMARY | 2025-07-06 11:36 | XMS_ITS | Encounter Summary ---
Author Organization [employer] [facility] Address [address] [place] [address] Phone Care Team Providers Care Dairy Cattle Farm Manager Name Role Phone Smiley Saenz MD Unavailable PheKeiry freitas CNP Unavailable [phone] Laurie Eaton MD Unavailable [phone] Charlie Aguilar MD Unavailable Laurie Eaton MD Primary Care Provider [phone] PheKeiry freitas CNP Primary Care Provider Laurie Eaton MD Unavailable [phone] PheeKiry freitas CNP Primary Care Provider PheKeiry freitas CNP Unavailable [phone] Chad Esposito DO Primary Care Provider Keiry Au CNP Primary Care Provider Encounter Details Date Type Department Care Team (Late st Contact Info) Description 10/12/2019 Procedure Pass [facility], [address] [address] Social History Tobacco Use Types Packs/Day Years [...] 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 Not on file Not on file documented as of this encounter Last Filed Vital Signs Vital Sign Reading Time Taken Comments Blood Pressure - - Pulse - - Temperature - - Respiratory Rate - - Oxygen Saturation - - Inhaled Oxygen Concentration - - Weight 67.1 kg (148 lb) 10/14/2019 10:00 AM EST Height 162.6 cm (5' 4 ) 10/14/2019 10:00 AM EST Body Mass Index 25.4 10/14/2019 10:00 AM EST documented in this encounter Plan of Treatment Upcoming Encounters Date Type Department Care Team (Late st Contact Info) Description 08/07/2025 1:40 PM EST Office Visit [facility] Rheumatology [address] [place] [address] [place] [address] Carla Mercado MD, MPH [address] [place] [address], [address] [place] [address] 12/27/2025 1:00 PM EDT Office Visit [facility] Neurology [address] [place] [address] [place] [address] Arnaldo Mcdonough MD [address] [place] [address], [address] [place] [address] documented as of this encounter Visit Diagnoses Not on filedocumented in this encounter Additional Health Concerns Infection Onset Date Last Indicated Resolved Time CoV-Risk 05/19/2024 05/19/2024 05/30/2024 1:22 AM EDT CoV-Risk 08/29/2024 08/29/2024 09/09/2024 1:22 AM EST Assessment Noted Time PHQ-2 Depression Total Score: 0 10/04/19 11:01 AM EST documented as of this encounter Care Teams Dairy Cattle Farm Manager Relationship Specialty Start Date End Date Laurie Eaton MD [address] [place] [address] [email or web address] PCP - General Internal Medicine 06/24/17 05/28/21 Keiry Au CNP [address] [place] [phone] PCP - General Internal Medicine 05/29/21 02/11/23 Keiry Au CNP [address] [place] [phone] PCP - General Internal Medicine 02/12/23 03/04/25 Chad Esposito DO [address] [place] [phone] [email or web address] PCP - General Internal Medicine 03/05/25 03/13/25 Keiry Au CNP [address] [place] [phone] PCP - General Nurse Practitioner 03/14/25 Smiley Saenz MD [address] [place] [address] [email or web address] Historical LMR Provider 01/10/15 05/28/21 Keiry Au CNP [address] [place] [address] [place] [address] Primary Care Physician 06/17/17 Laurie Eaton MD [address] [place] [phone] Historical LMR Provider 06/17/17 1 Charlie Aguilar MD [address] [place] [address] Historical LMR Provider 06/17/17 Laurie Eaton MD [address] [place] [phone] Insurance Assigned Provider 12/04/23 12/03/24 Keiry Au CNP [address] [place] [phone] Insurance Assigned Provider 12/03/24 documented as of this encounter Additional Source Comments The information contained in this document represents components of the legal health record. It is not the complete legal health record.[facility]
--- OUTSIDE RECORDS SUMMARY | 2025-07-06 11:36 | XMS_ITS | Encounter Summary ---
Author Organization [facility] Address [address] [place] [address] Phone Care Team Providers Care Sales Attendant Building Materials Name Role Phone Keiry Au CNP Unavailable Laurie Eaton MD Unavailable Keiry Au CNP Primary Care Provider Keiry Au CNP Unavailable Chad Esposito DO Primary Care Provider [phone] Keiry Au CNP Primary Care Provider Encounter Details Date Type Department Care Team ([facility] st Contact Info) Description 06/08/2023 Transcribe Orders Virtual Department [address] [place] [address] Keiry Au CNP 14 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 Not on file Not on file documented as of this encounter Plan of Treatment Upcoming Encounters Date Type Department Care Team (Late st Contact Info) Description 08/07/2025 1:40 PM EST Office Visit [facility] Rheumatology [address] [place] [address] Carla Mercado MD, MPH [address] [place] [address], [address] [place] [address] 12/27/2025 1:00 PM EDT Office Visit [facility] Neurology [address] [place] [address] [place] [address] Arnaldo Mcdonough MD [address] [place] [address], 2[address] [place] [address] [email or web address] documented as of this encounter Results * (ABNORMAL) BI MAMMOGRAM SCREENING WITH TOMOSYNTHESIS WITH CAD (BILATERAL) (09/06/2023 12:58 PM EST) Anatomical Region Laterality Modality Breast Left, Breast Right, Breast Bilateral Bila teral Mammography 09/09/2023 6:00 PM EST Impressions 09/14/2023 5:55 PM EST Recommend additional imaging for small focal asymmetry in the outer right breast which could prove to represent benign superimposed fibroglandular tissue. No other findings suspicious for malignancy. Radiology department will attempt to recall the patient for the additional imaging. BI-RADS CATEGORY: 0 - Incomplete. Need additional imaging evaluation. DENSITY: The breast tissue is heterogeneously dense, which could obscure a lesion on mammography. LEFT RECOMMENDATION DUE DATE: 12 Months Left Mammography Screening RIGHT RECOMMENDATION DUE DATE: 1 Month Right Additional Imaging Recall imaging: spot compression CC, spot compression MLO, 90 degrees ML views of the right breast, right breast ultrasound in case necessary. Narrative 09/14/2023 5:55 PM EST Bilateral mammography is performed in conjunction with computed aided detection. 3-D tomography along with 2-D C view imaging was also performed. Comparison made to previous dated as far back as 08/05/2017 and as recent as 09/02/2022. The patient is status-post benign core needle biopsy on the right in 1999. Small focal asymmetry in the outer right breast approximately 7 cm deep to the nipple not definitely demonstrated previously. Approximately 3 cm mass in the mid-anterior outer left breast is stable. No other suspicious masses, areas of architectural distortion or suspicious microcalcifications. Biopsy marker remains present in the outer left breast. Procedure Note Trell [place] MD - 09/14/2023 Bilateral mammography is performed in conjunction with computed aideddetection. 3-D tomography along with 2-D C view imaging was alsoperformed. Comparison made to previous dated as far back as 08/05/2017 andas recent as 09/02/2022. The patient is status-post benign core needle biopsy on the right [id number]. Small focal asymmetry in the outer right breast approximately 7 cm deep tothe nipple not definitely demonstrated previously. Approximately 3 cm mass in the mid-anterior outer left breast is stable. No other suspicious masses, areas of architectural distortion orsuspicious microcalcifications. Biopsy marker remains present in the outerleft breast. IMPRESSION: Recommend additional imaging for small focal asymmetry in the outer rightbreast which could prove to represent benign superimposed fibroglandulartissue. No other findings suspicious for malignancy. Radiology department will attempt to recall the patient for the additionalimaging. BI-RADS CATEGORY: 0 - Incomplete. Need additional imaging evaluation. DENSITY: The breast tissue is heterogeneously dense, which could obscurea lesion on mammography. LEFT RECOMMENDATION DUE DATE: 12 Months Left Mammography Screening RIGHT RECOMMENDATION DUE DATE: 1 Month Right Additional Imaging Recall imaging: spot compression CC, spot compression MLO, 90 degrees MLviews of the right breast, right breast ultrasound in case necessary. Keiry Au CNP IMG MG EXAMS Final Result documented in [...] documented as of this encounter Care Teams Sales Attendant Building Materials Relationship Specialty Start Date End Date Keiry Au CNP [address] [place] [phone] [email or web address] PCP - General Internal Medicine 02/12/23 03/04/25 Chad Esposito DO [address] [place] [phone] [email or web address] PCP - General Internal Medicine 03/05/25 03/13/25 Keiry Au CNP [address] [place] [phone] PCP - General Nurse Practitioner 03/14/25 Keiry Au CNP [address] [place] [address] [place] [address] [email or web address] Primary Care Physician 06/17/17 Laurie Eaton MD [address] [place] [address] [email or web address] Insurance Assigned Provider 12/04/23 12/03/24 Keiry Au CNP [address] [place] [address] [email or web address] Insurance Assigned Provider 12/03/24 documented as of this encounter Additional Source Comments The information contained in this document represents components of the legal health record. It is not the complete legal health record.[facility]
--- OUTSIDE RECORDS SUMMARY | 2025-07-06 11:36 | XMS_ITS | Encounter Summary ---
Author Organization [employer] [facility] Address [address] [place] [address] Phone Care Team Providers Care Operational Assistant Name Role Phone Smiley Saenz MD Unavailable PheKeiry freitas CNP Unavailable [phone] Laurie Eaton MD Unavailable [phone] Charlie Aguilar MD Unavailable Laurie Eaton MD Primary Care Provider [phone] PheasantKeiry CNP Primary Care Provider Laurie Eaton MD Unavailable [phone] PheasantKeiry CNP Primary Care Provider PheasantKeiry CNP Unavailable [phone] Chad Esposito DO Primary Care Provider PheasantKeiry CNP Primary Care Provider Encounter Details Date Type Department Care Team (Late st Contact Info) Description 08/16/2017 Telephone [facility] [address] [place] [address] Chano Ivey MD [facility] [place], [place] [phone] Social History Tobacco Use Types Packs/Day Years [...] Description 08/07/2025 1:40 PM EST Office Visit [facility] Rheumatology [address] [place] [address] Carla Mercado MD, MPH [address] [place] [address], [address] [place] [address] [email or web address] 12/27/2025 1:00 PM EDT Office Visit [facility] Neurology [address] [place] [address] Arnaldo Mcdonough MD [address] [place] [address], 2nd [place] [address] [email or web address] documented as of this encounter Visit Diagnoses Not on filedocumented in this encounter Additional Health Concerns Infection Onset Date Last Indicated Resolved Time CoV-Risk 05/19/2024 05/19/2024 05/30/2024 1:22 AM EDT CoV-Risk 08/29/2024 08/29/2024 09/09/2024 1:22 AM EST documented as of this encounter Care Teams Operational Assistant Relationship Specialty Start Date End Date Laurie Eaton MD [address] [place] [address] [place] [address] [email or web address] PCP - General Internal Medicine 06/24/17 05/28/21 Keiry Au, CABLE SPLICER ASSISTANT [address] [address] PCP - General Internal Medicine 05/29/21 02/11/23 Keiry Au CNP [address] [place] [address] PCP - General Internal Medicine 02/12/23 03/04/25 Chad Esposito DO [address] [place] [phone] [email or web address] PCP - General Internal Medicine 03/05/25 03/13/25 Keiry Au, KAY [address] [place] [address] PCP - General Nurse Practitioner 03/14/25 Smiley Saenz MD [address] [place] [address] [email or web address] Historical LMR Provider 01/10/15 05/28/21 Keiry Au CNP [address] [place] [address] Primary Care Physician 06/17/17 Laurie Eaton MD [address] [place] [address] Historical LMR Provider 06/17/17 Charlie Valenzuela MD [address] [place] [address] Historical LMR Provider 06/17/17 Laurie Eaton MD [address] [place] [address] [place] [address] [email or web address] Insurance Assigned Provider 12/04/23 12/03/24 Keiry Au CNP 14 [facility] [address] [place] [address] [email or web address] Insurance Assigned Provider 12/03/24 documented as of this encounter Additional Source Comments The information contained in this document represents components of the legal health record. It is not the complete legal health record.[facility]
--- OUTSIDE RECORDS SUMMARY | 2025-07-06 11:36 | XMS_ITS | Encounter Summary ---
Author Organization [employer] [facility] Address [address] [place] [address] Phone Care Team Providers Care Sorter/Assay Tech Name Role Phone Smiley Saenz MD Unavailable PheKeiry freitas CNP Unavailable [phone] Laurie Eaton MD Unavailable Charlie Aguilar MD Unavailable Laurie Eaton MD Primary Care Provider [phone] PheKeiry freitas CNP Primary Care Provider Laurie Eaton MD Unavailable [phone] PheKeiry freitas CNP Primary Care Provider PheKeiry freitas CNP Unavailable [phone] Chad Esposito DO Primary Care Provider PheKeiry freitas CNP Primary Care Provider Encounter Details Date Type Department Care Team (Late st Contact Info) Description 05/15/2019 Ancillary Orders [facility] [place] Internal Medicine 14 [facility] [address] [place] [address] Laurie Eaton MD 14 [facility] [address] [place] [address] [email or web address] Social History Tobacco Use Types Packs/Day Years Used Date Smoking Tobacco: Former Cigarettes Smokeless Tobacco: Never Alcohol Use Standard Drinks/Week Comments Yes 0 (1 standard drink = 0.6 oz pur e alcohol) 2 glasses of wine per night Education Answer Date Recorded What is the [...] 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 Not on file Not on file documented as of this encounter Plan of Treatment Upcoming Encounters Date Type Department Care Team (Late st Contact Info) Description 08/07/2025 1:40 PM EST Office Visit [facility] Rheumatology [address] [place] [address] Carla Mercado MD, MPH [address] [place] [address], [address] [place] [address] [email or web address] 12/27/2025 1:00 PM EDT Office Visit [facility] Neurology [address] [place] [address] [place] [address] Arnaldo Mcdonough MD [address] [place] [address], 2[address] [place] [address] [email or web address] documented as of this encounter Visit Diagnoses Not on filedocumented in this encounter Additional Health Concerns Infection Onset Date Last Indicated Resolved Time CoV-Risk 05/19/2024 05/19/2024 05/30/2024 1:22 AM EDT CoV-Risk 08/29/2024 08/29/2024 09/09/2024 1:22 AM EST documented as of this encounter Care Teams Sorter/Assay Tech Relationship Specialty Start Date End Date Lauire Eaton MD [address] [place] [address] [email or web address] PCP - General Internal Medicine 06/24/17 05/28/21 Keiry Au CNP [address] [place] [address] [email or web address] PCP - General Internal Medicine 05/29/21 02/11/23 Keiry Au CNP [address] [place] [address] [email or web address] PCP - General Internal Medicine 02/12/23 03/04/25 Chad Esposito DO [address] [place] [phone] [email or web address] PCP - General Internal Medicine 03/05/25 03/13/25 Keiry Au CNP [address] [place] [address] [email or web address] PCP - General Nurse Practitioner 03/14/25 Smiley Saenz MD [address] [place] [address] [email or web address] Historical LMR Provider 01/10/15 05/28/21 Keiry Au CNP [address] [place] [address] Primary Care Physician 06/17/17 Laurie Eaton MD [address] [place] [address] [place] [address] [email or web address] Historical LMR Provider 06/17/17 1 Charlie Aguilar MD [address] [place] [address] Historical LMR Provider 06/17/17 Laurie Eaton MD [address] [place] [address] [place] [address] [email or web address] Insurance Assigned Provider 12/04/23 12/03/24 Keiry Au CNP [address] [place] [address] [place] [address] [email or web address] Insurance Assigned Provider 12/03/24 documented as of this encounter Additional Source Comments The information contained in this document represents components of the legal health record. It is not the complete legal health record.[facility]
--- OUTSIDE RECORDS SUMMARY | 2025-07-06 11:36 | XMS_ITS | Encounter Summary ---
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 file Not on file Not on file documented as of this encounter Plan of Treatment Upcoming Encounters Date Type Department Care Team (Late st Contact Info) Description 08/07/2025 1:40 PM EST Office Visit [facility] Rheumatology [address] [place] [address] [place] [address] Carla Mercado MD, MPH [address] [place] [address], [address] [place] [address] 12/27/2025 1:00 PM EDT Office Visit [facility] Neurology [address] [place] [address] [place] [address] Arnaldo Mcdonough MD [address] [place] [address], 2nd [place] [address] [email or web address] documented as of this encounter Visit Diagnoses Not on filedocumented in this encounter Additional Health Concerns Infection Onset Date Last Indicated Resolved Time CoV-Risk 05/19/2024 05/19/2024 05/30/2024 1:22 AM EDT CoV-Risk 08/29/2024 08/29/2024 09/09/2024 1:22 AM EST Assessment Noted Time PHQ-2 Depression Total Score: 0 10/05/19 9:38 AM EST documented as of this encounter Care Teams Memorial Adviser Relationship Specialty Start Date End Date Keiry Au CNP [address] [place] [address] [address] [place] [address] PCP - General Internal Medicine 05/29/21 02/11/23 Keiry Au CNP [address] [place] [address] PCP - General Internal Medicine 02/12/23 03/04/25 Chad Esposito DO [address] [place] [phone] [email or web address] PCP - General Internal Medicine 03/05/25 03/13/25 Keiry Au CNP [address] [place] [address] PCP - General Nurse Practitioner 03/14/25 Keiry Au CNP [address] [place] [address] Primary Care Physician 06/17/17 Laurie Eaton MD [address] [place] [address] Insurance Assigned Provider 12/04/23 12/03/24 Keiry Au CNP [address] [place] [address] Insurance Assigned Provider 12/03/24 documented as of this encounter Additional Source Comments The information contained in this document represents components of the legal health record. It is not the complete legal health record.[facility]
--- OUTSIDE RECORDS SUMMARY | 2025-07-06 11:36 | XMS_ITS | Encounter Summary ---
Author Organization [facility] Address [address] [place] [address] Phone Care Team Providers Care Shuttle Preparation Supervisor Name Role Phone Smiley Saenz MD Unavailable PheKeiry freitas CNP Unavailable [phone] Laurie Eaton MD Unavailable [phone] Charlie Aguilar MD Unavailable Laurie Eaton MD Primary Care Provider [phone] PheKeiry freitas CNP Primary Care Provider Laurie Eaton MD Unavailable [phone] PheKeiry freitas CNP Primary Care Provider PheKeiry freitas CNP Unavailable [phone] Chad Esposito DO Primary Care Provider [phone] Keiry Au CNP Primary Care Provider Encounter Details Date Type Department Care Team (Late st Contact Info) Description 04/04/2020 Procedure Pass [facility], [address] [address] Social History Tobacco Use Types Packs/Day Years [...] 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 Not on file Not on file documented as of this encounter Last Filed Vital Signs Vital Sign Reading Time Taken Comments Blood Pressure - - Pulse - - Temperature - - Respiratory Rate - - Oxygen Saturation - - Inhaled Oxygen Concentration - - Weight 67.1 kg (148 lb) 04/06/2020 9:01 AM EDT Height 162.6 cm (5' 4 ) 04/06/2020 9:01 AM EDT Body Mass Index 25.4 04/06/2020 9:01 AM EDT documented in this encounter Plan of Treatment Upcoming Encounters Date Type Department Care Team (Late st Contact Info) Description 08/07/2025 1:40 PM EST Office Visit [facility] Rheumatology [address] [place] [address] [place] [address] Carla Mercado MD, MPH [address] [place] [address], [address] [place] [address] 12/27/2025 1:00 PM EDT Office Visit [facility] Neurology [address] [place] [address] [place] [address] Arnaldo Mcdonough MD [address] [place] [address], 2nd [place] [address] documented as of this encounter Visit Diagnoses Not on filedocumented in this encounter Additional Health Concerns Infection Onset Date Last Indicated Resolved Time CoV-Risk 05/19/2024 05/19/2024 05/30/2024 1:22 AM EDT CoV-Risk 08/29/2024 08/29/2024 09/09/2024 1:22 AM EST Assessment Noted Time PHQ-2 Depression Total Score: 0 10/04/19 11:01 AM EST documented as of this encounter Care Teams Shuttle Preparation Supervisor Relationship Specialty Start Date End Date Laurie Eaton MD [address] [place] [address] [place] [address] [email or web address] PCP - General Internal Medicine 06/24/17 05/28/21 Keiry Au CNP [address] [place] [address] PCP - General Internal Medicine 05/29/21 02/11/23 Keiry Au CNP [address] [place] [address] PCP - General Internal Medicine 02/12/23 03/04/25 Chad Esposito DO [address] [place] [phone] [email or web address] PCP - General Internal Medicine 03/05/25 03/13/25 Keiry Au CNP [address] [place] [address] PCP - General Nurse Practitioner 03/14/25 Smiley Saenz MD [address] [place] [address] [email or web address] Historical LMR Provider 01/10/15 05/28/21 Keiry Au CNP [address] [place] [address] [place] [address] Primary Care Physician 06/17/17 Laurie Eaton MD [address] [place] [address] Historical LMR Provider 06/17/17 1 Charlie Aguilar MD [address] [place], [place] [address] Historical LMR Provider 06/17/17 Laurie Eaton MD [address] [place] [address] Insurance Assigned Provider 12/04/23 12/03/24 Keiry Au, KAY [address] [place] [address] Insurance Assigned Provider 12/03/24 documented as of this encounter Additional Source Comments The information contained in this document represents components of the legal health record. It is not the complete legal health record.[facility]
--- OUTSIDE RECORDS SUMMARY | 2025-07-06 11:36 | XMS_ITS | Encounter Summary ---
Author Organization [employer] [facility] Address [address] [place] [address] Phone Care Team Providers Care Workers Compensation Defense Attorney Name Role Phone Smiley Saenz MD Unavailable PheKeiry freitas CNP Unavailable [phone] Laurie Eaton MD Unavailable Charlie Aguilar MD Unavailable Laurie Eaton MD Primary Care Provider [phone] PheKeiry freitas CNP Primary Care Provider Laurie Eaton MD Unavailable [phone] PheKeiry freitas BOAT LOADER Primary Care Provider PheKeiry freitas BOAT LOADER Unavailable [phone] Chad Esposito DO Primary Care Provider PheKeiry freitas CNP Primary Care Provider Encounter Details Date Type Department Care Team (Late st Contact Info) Description 05/16/2020 Ancillary Orders 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 on file Not on file documented as of this encounter Plan of Treatment Upcoming Encounters Date Type Department Care Team (Late st Contact Info) Description 08/07/2025 1:40 PM EST Office Visit [facility] Rheumatology [address] [place] [address] [place] [address] Carla Mercado MD, MPH [address] [place] [address], [address] [place] [address] [email or web address] 12/27/2025 1:00 PM EDT Office Visit [facility] Neurology [address] [place] [address] [place] [address] Arnaldo Mcdonough MD [address] [place] [address], 2nd [place] [address] [email or web address] documented as of this encounter Results * BI MAMMOGRAM SCREENING WITH TOMOSYNTHESIS WITH CAD (BILATERAL) (08/15/2020 1:02 PM EST) Anatomical Region Laterality Modality Breast Left, Breast Right, Breast Bilateral Bila teral Mammography 08/15/2020 2:53 PM EST Addenda Addendum by Marybeth Falk MD on 08/22/2020 3:51 PM EST ADDENDUM: Addendum created to correct the BI-RADS. Bi-RADS: BI-RADS CATEGORY: 1 - Negative. Impressions 08/15/2020 2:57 PM EST BILATERAL BREASTS: Negative, no evidence of malignancy. Normal interval follow- up is recommended in 12 months. Bi-RADS: BI-RADS CATEGORY: 0 - Incomplete. Need additional imaging evaluation. DENSITY: The breast tissue is heterogeneously dense, which could obscure a lesion on mammography. Narrative 08/15/2020 2:57 PM EST STUDY: Bilateral screening mammography with tomosynthesis and CAD TECHNIQUE: Bilateral full-field digital screening mammography is obtained and read in conjunction with computer-aided detection. Tomosynthesis as well as 2-D C view imaging were obtained. COMPARISON: Comparison made to multiple prior, most recent August 10, 2019, and most remote July 11, 2014. BREAST COMPOSITION: The breasts are heterogeneously dense, which may obscure small masses. BILATERAL BREASTS: No significant masses, suspicious calcifications or other abnormalities are seen. Procedure Note Marybeth Falk MD - 08/15/2020 STUDY: Bilateral screening mammography with tomosynthesis and CAD TECHNIQUE: Bilateral full-field digital screening mammography is obtainedand read in conjunction with computer-aided detection. Tomosynthesis aswell as 2-D C view imaging were obtained. COMPARISON: Comparison made to multiple prior, most recent July, and most remote July 11, 2014. BREAST COMPOSITION: The breasts are heterogeneously dense, which mayobscure small masses. BILATERAL BREASTS: No significant masses, suspicious calcifications orother abnormalities are seen. IMPRESSION: BILATERAL BREASTS: Negative, no evidence of malignancy. Normal intervalfollow-up is recommended in 12 months. Bi-RADS: BI-RADS CATEGORY: 0 - Incomplete. Need additional imagingevaluation. DENSITY: The breast tissue is heterogeneously dense, which could obscurea lesion on mammography. Keiry Au BOAT LOADER IM MG EXAMS Edited Result - Final documented in this encounter Visit Diagnoses Diagnosis Breast screening Breast screening, unspecified Breast screening Breast screening, unspecified documented in this encounter Additional Health Concerns Infection Onset Date Last Indicated Resolved Time CoV-Risk 05/19/2024 05/19/2024 05/30/2024 1:22 AM EDT CoV-Risk 08/29/2024 08/29/2024 09/09/2024 1:22 AM EST Assessment Noted Time PHQ-2 Depression Total Score: 0 10/04/19 11:01 AM EST documented as of this encounter Care Teams Workers Compensation Defense Attorney Relationship Specialty Start Date End Date Laurie Eaton MD [address] [place] [address] [place] [address] [email or web address] PCP - General Internal Medicine 06/24/17 05/28/21 Keiry Au CNP [address] [place] [address] PCP - General Internal Medicine 05/29/21 02/11/23 Keiry Au CNP [address] [place] [address] PCP - General Internal Medicine 02/12/23 03/04/25 Chad Esposito DO [address] [place] [phone] [email or web address] PCP - General Internal Medicine 03/05/25 03/13/25 Keiry Au CNP [address] [place] [address] PCP - General Nurse Practitioner 03/14/25 Smiley Saenz MD [address] [place] [address] [email or web address] Historical LMR Provider 01/10/15 05/28/21 Keiry Au, BOAT LOADER [address] [place] [address] Primary Care Physician 06/17/17 Laurie Eaton MD [address] [place] [address] Historical LMR Provider 06/17/17 1 Charlie Aguilar MD [address] [place] [address] Historical LMR Provider 06/17/17 Laurie Eaton MD [address] [place] [address] Insurance Assigned Provider 12/04/23 12/03/24 Keiry Au, BOAT LOADER [address] [place] [address] Insurance Assigned Provider 12/03/24 documented as of this encounter Additional Source Comments The information contained in this document represents components of the legal health record. It is not the complete legal health record.[facility]
--- OUTSIDE RECORDS SUMMARY | 2025-07-06 11:37 | XMS_ITS | Encounter Summary ---
Author Organization [facility] Address [address] [place] [address] Phone Care Team Providers Care Charger Operator Name Role Phone Pcp, Not Required Primary Care Provider Unavaila Smiley Scales MD Unavailable Esmer Hunter Unavailable Unavailab Keiry Burton CNP Unavailable [phone] Laurie Eaton MD Unavailable Charlie Aguilar MD Unavailable Laurie Eaton MD Primary Care Provider [phone] Keiry Au CNP Primary Care Provider Laurie Eaton MD Unavailable [phone] PheKeiry freitas CNP Primary Care Provider Keiry Au CNP Unavailable [phone] Chad Esposito DO Primary Care Provider Keiry Au CNP Primary Care Provider Encounter Details Date Type Department Care Team (Late st Contact Info) Description 06/29/2016 Procedure [facility] [address] [place] [id number] Social History Tobacco Use Types Packs/Day Years Used Date Smoking Tobacco: Former Cigarettes Alcohol Use Standard Drinks/Week Comments Not Asked 0 (1 standard drink = 0.6 oz [...] Description 08/07/2025 1:40 PM EST Office Visit [facility] Rheumatology [address] [place] [address] Carla Mercado MD, MPH [address] [place] [address], [address] [place] [address] [email or web address] 12/27/2025 1:00 PM EDT Office Visit [facility] Neurology [address] [place] [address] [place] [address] Arnaldo Mcdonough MD [address] [place] [address], 2nd [place] [address] [email or web address] documented as of this encounter Visit Diagnoses Not on filedocumented in this encounter Additional Health Concerns Infection Onset Date Last Indicated Resolved Time CoV-Risk 05/19/2024 05/19/2024 05/30/2024 1:22 AM EDT CoV-Risk 08/29/2024 08/29/2024 09/09/2024 1:22 AM EST documented as of this encounter Care Teams Charger Operator Relationship Specialty Start Date End Date Pcp, Not Required [address] [place] [address] PCP - General 07/05/14 06/23/17 Laurie Eaton MD [address] [facility] [address] [place] [address] [email or web address] PCP - General Internal Medicine 06/24/17 05/28/21 Keiry Au, TUNNEL KILN OPERATOR [address] [place] [address] PCP - General Internal Medicine 05/29/21 02/11/23 Keiry Au CNP [address] [place] [address] PCP - General Internal Medicine 02/12/23 03/04/25 Chad Esposito DO [address] [place] [phone] [email or web address] PCP - General Internal Medicine 03/05/25 03/13/25 Keiry Au CNP [address] [place] [address] PCP - General Nurse Practitioner 03/14/25 Smiley Saenz MD [address] [place] [address] [email or web address] Historical LMR Provider 01/10/15 05/28/21 Esmer uHnter LICSW Historical LMR Provider 06/17/17 08/15/17 Keiry Au, KAY [address] [place] [address] Primary Care Physician 06/17/17 Laurie Eaton MD [address] [place] [address] [email or web address] Historical LMR Provider 06/17/17 1 Charlie Aguilar MD [address] [place] [address] Historical LMR Provider 06/17/17 Laurie Eaton MD [address] [place] [address] [place] [address] [email or web address] Insurance Assigned Provider 12/04/23 12/03/24 Keiry Au CNP [address] [place] [address] [place] [address] [email or web address] Insurance Assigned Provider 12/03/24 documented as of this encounter Additional Source Comments The information contained in this document represents components of the legal health record. It is not the complete legal health record.[facility]
== END 2025-07-06 12:01 | disposition home or self-care (01) ==
LOC: HO.HNS 09:53
PROVIDERS: Referring Provider Physical Medicine & Rehabilitation; Visit Provider Physician Assistant
DX: M54.9 Dorsalgia, unspecified (principal)
CPT/HCPCS: 99204

== ENCOUNTER → 2025-07-06 09:53 | Outpatient (BNVA) | payer MEDICARE, OTHER, SELFPAY | PROVIDERS: Referring Provider Physical Medicine & Rehabilitation; Visit Provider Physician Assistant | DX: M54.50 Low back pain, unspecified (principal) | CPT/HCPCS: 99202 ==

== ENCOUNTER 2025-08-03 09:27 | Outpatient (AMB) | payer MEDICARE, OTHER, SELFPAY ==
--- NOTE | 2025-08-03 09:32 | HO.SPINEOV ---
Intake Visit Reasons: new symptoms Intake Note: Ms. Mohan is here today c/o new symptoms of left sided leg pain. Flat Hammerer Required: No Allergies No Known Allergies Allergy (Verified 08/03/25 09:32) Assessment & Plan Assessment & Plan (1) Back pain: Code(s): M54.9 - Dorsalgia, unspecified Category: Medical Plan Mrs Mohan is here in follow-up. We have her plan for an L4-5 oblique lumbar interbody fusion. She was having some increased left hip pain over the last few weeks and wanted to come in for evaluation. She has not report any tingling numbness or shooting pain down into the legs. She does have bilateral knee pain. She has a history of RA and it sounds like she may be suboptimally managed with medications. She had an issue with neutropenia on 1 of the previous medications that were was working much better. Right now she is just on leflunomide. On exam she is uncomfortable but not in guarding pain. Internal and external rotation of her hip does generate discomfort locally just to the hip region. The strength and reflexes in the lower extremities are normal. She does not have an antalgic gait. I think her symptoms are coming from the hip joint and likely some degree related to her RA. She is going to talk with her sweatband maker about possibly adjusting her medications. I asked her to be cautious a starting anything new in light of upcoming surgery as some of these things can affect her immune system and possibly wound healing. We did sit down and review her lumbar MRI again went over indication for surgery, risks, benefits and recovery etc.. Total amount of time spent in this visit was 20 minutes in discussion of symptoms, lumbar MRI imaging results and subsequent plan of care Gurwinder Giles MD,PhD [facility] Coding Level of Care Code Est Pt Level 3 (05455) Diagnoses Back pain M54.9
== END 2025-08-03 09:59 | disposition home or self-care (01) ==
LOC: HO.HNS 09:27
PROVIDERS: Visit Provider Physician Assistant
DX: M54.9 Dorsalgia, unspecified (principal)
CPT/HCPCS: 99213

== ENCOUNTER → 2025-08-03 09:27 | Outpatient (BNVA) | payer MEDICARE, OTHER, SELFPAY | PROVIDERS: Visit Provider Physician Assistant | DX: Z71.2 Person consulting for explanation of examination or test findings (principal); M25.552 Pain in left hip; M54.9 Dorsalgia, unspecified | CPT/HCPCS: 99212 ==

== ENCOUNTER → 2025-08-19 07:42 | Outpatient (BNV) | payer MEDICARE, OTHER, SELFPAY | PROVIDERS: PCP Nurse Practitioner Adult Health; Visit Provider Radiology Diagnostic Radiology | DX: M51.84 Other intervertebral disc disorders, thoracic region (principal); M48.07 Spinal stenosis, lumbosacral region | CPT/HCPCS: 72148 ==

== ENCOUNTER 2025-08-19 07:56 | Outpatient (REF) | payer MEDICARE, OTHER, SELFPAY ==
--- OUTSIDE RECORDS SUMMARY | 2025-08-16 23:59 | XMS_ITS | Continuity of Care Document ---
Author Organization [facility] Address [address] [place] [address]- Care Team Providers Care Internet Salesperson Name Role Phone Roe GARY, Keiry Barragan Primary Care Physician Encounter [facility] [id number] Date(s): 07/17/25 - 08/16/25 [facility] [address] [place] [address]- Attending Physician: Brock Jaffe Admitting Physician: Brock Jaffe Referring Physician: Brock Jaffe Encounter Type: Triage Allergies, Adverse Reactions, Alerts No Known Medication Allergies Medications Calcium Citrate 315 mg + Vitamin D 250IU Tablet 2 tablet, By Mouth, 2 times a day, 0 Refills, Maintenance, 12/19/18 8:56:13 AM EDT Start Date: 12/19/18 Status: Ordered Medication Dispense Status: Completed Total Allowed Fills: 1 Fills Dispensed: 0 CeleBREX 100 mg oral capsule 2 capsule = 200 mg, By Mouth, Daily at bedtime, 0 Refills, Maintenance, 12/19/18 8:32:31 AM EDT Start Date: 12/19/18 Status: Ordered Medication Dispense Status: Completed Total Allowed Fills: 1 Fills Dispensed: 0 Cholecalciferol = 125 mcg, By Mouth, Daily, 1 DAILY, 0 Refills, Maintenance, 07/28/23 7:05:00 AM EST, Partial fill upon patient request if the prescription is for a schedule II opioid drug. Start Date: 07/28/23 Status: Ordered Medication Dispense Status: Completed Total Allowed Fills: 1 Fills Dispensed: 0 Cymbalta 20 mg oral enteric coated capsule 1 capsule = 20 mg, By Mouth, 2 times a day, # 60 capsule, 0 Refills, Maintenance, 02/14/20 9:03:00 AM EDT, EC Capsule Start Date: 02/14/20 Status: Ordered Medication Dispense Status: Completed Quantity: 60.0 Unit: capsule Total Allowed Fills: 1 Fills Dispensed: 0 Ecotrin 325 mg oral delayed release tablet 1 tablet = 325 mg, By Mouth, Daily, 1 TABLET DAILY TO START THE DAY AFTER SURGERY, 0 Refills, Maintenance, 07/28/23 7:04:00 AM EST, Partial fill upon patient request if the prescription is for a schedule II opioid drug. Start Date: 07/28/23 Status: Ordered Medication Dispense Status: Completed Total Allowed Fills: 1 Fills Dispensed: 0 Emgality Prefilled Pen 120 mg/mL subcutaneous solution Subcutaneous Infusion, Every 28 days, 0 Refills, Maintenance, 02/14/20 9:04:00 AM EDT Start Date: 02/14/20 Status: Ordered Medication Dispense Status: Completed Total Allowed Fills: 1 Fills Dispensed: 0 estradiol 0.025 mg/24 hours twice weekly transdermal film, extended release 1 patch, Topically, 0 Refills, Maintenance, 02/14/20 9:03:00 AM EDT Start Date: 02/14/20 Status: Ordered Medication Dispense Status: Completed Total Allowed Fills: 1 Fills Dispensed: 0 glucosamine 750 mg oral tablet 2 tablet = 1,500 mg, By Mouth, Daily, 0 Refills, Maintenance, 02/14/20 9:07:00 AM EDT Start Date: 02/14/20 Status: Ordered Medication Dispense Status: Completed Total Allowed Fills: 1 Fills Dispensed: 0 Imitrex 100 mg oral tablet 1 tablet = 100 mg, By Mouth, Once, 0 Refills, Maintenance, 12/19/18 8:31:52 AM EDT Start Date: 12/19/18 Status: Ordered Medication Dispense Status: Completed Total Allowed Fills: 1 Fills Dispensed: 0 Kevzara Pre-filled Pen 200 mg/1.14 mL subcutaneous solution 0 Refills, Maintenance, 07/20/23 12:01:00 PM EST, Partial fill upon patient request if the prescription is for a schedule II opioid drug. Start Date: 07/20/23 Status: Ordered Medication Dispense Status: Completed Total Allowed Fills: 1 Fills Dispensed: 0 Magnesium Oxide By Mouth, 0 Refills, Maintenance, 12/19/18 8:55:29 AM EDT Start Date: 12/19/18 Status: Ordered Medication Dispense Status: Completed Total Allowed Fills: 1 Fills Dispensed: 0 melatonin 3 mg oral tablet 1 tablet = 3 mg, By Mouth, Daily at bedtime, PRN for insomnia, # 60 tablet, 0 Refills, Maintenance,02/14/20 9:07:00 AM EDT, Tablet Start Date: 02/14/20 Status: Ordered Medication Dispense Status: Completed Quantity: 60.0 Unit: tablet Total Allowed Fills: 1 Fills Dispensed: 0 Multivitamin Daily, 0 Refills, Maintenance, 12/19/18 8:55:51 AM EDT Start Date: 12/19/18 Status: Ordered Medication Dispense Status: Completed Total Allowed Fills: 1 Fills Dispensed: 0 Oxycodone = 5 mg, By Mouth, 1 EVERY 4-6 HOURS NEEDED FOR PAIN. DO NOT DRIVE WHILE ON THIS MEDICATION. TO BEGIN AFTER SURGERY, 0 Refills, Maintenance, 07/28/23 7:04:00 AM EST, Partial fill upon patient request if the prescription is for a schedule II opioid drug. Start Date: 07/28/23 Status: Ordered Medication Dispense Status: Completed Total Allowed Fills: 1 Fills Dispensed: 0 traZODone 50 mg oral tablet Refills 0, Maintenance, 07/20/23 12:02:00 PM EST, Partial fill upon patient request if the prescription is for a schedule II opioid drug. Start Date: 07/20/23 Status: Ordered Medication Dispense Status: Completed Total Allowed Fills: 1 Fills Dispensed: 0 Tylenol Extra Strength = 500 mg, By Mouth, Every 6 hours, 2 TABLETS EVERY 8 HOURS NEEDED FOR PAIN, 0 Refills, Maintenance, 07/28/23 7:04:00 AM EST, Partial fill upon patient request if the prescription is for a scheduleII opioid drug. Start Date: 07/28/23 Status: Ordered Medication Dispense Status: Completed Total Allowed Fills: 1 Fills Dispensed: 0 Vitamin D3 400 intl units oral capsule 2 capsule = 800 International_Units, By Mouth, Daily, 0 Refills, Maintenance, 12/19/18 8:32:57 AM EDT Start Date: 4/22/19 Status: Ordered Medication Dispense Status: Completed Total Allowed Fills: 1 Fills Dispensed: 0 Social History Social History Type Response Sex Sex Representation Female (finding) Patient Care team information Care Team Personnel Name: Jeaneth Urbina Position: [facility] Onco RN Member Role: Primary Care Nurse Name: Lenore Wilkinson RN Position: [facility] AMB Nurse Member Role: Primary Care Nurse Name: Keiry Au NP Position: [facility] Outreach Member Role: PCP Address: [address] [place] [address] Internal Medicine [address] Telecom: Care Team Related Persons Name: JESSENIA PEÑA Insurance Providers Guarantor name: MEAGAN Health Plan Information #: 1 Payer: MEDICARE B Payer Identifier: MEAGAN Member Number: [id number] Group Number: MEAGAN Subscriber Identifier: NA Relationship to Subscriber: self Coverage Type: NA Coverage Verification Date: Telecom: NA Address: Health Plan Information #: 2 Payer: SONU CORDERO ANDRÉS Payer Identifier: NA Member Number: [id number] Group Number: MEAGAN Subscriber Identifier: MEAGAN Relationship to Subscriber: self Coverage Type: Medicare Other Coverage Verification Date: NA Telecom: NA Address: Health Plan Information #: 3 Payer: [facility] (2NDRY ONLY Payer Identifier: NA Member Number: [id number] Group Number: NA Subscriber Identifier: NA Relationship to Subscriber: self Coverage Type: Medicare Managed Care (Includes Medicare Advantage Plans) Coverage Verification Date: NA Telecom: Address: Health Plan Information #: 4 Payer: [employer] Payer Identifier: NA Member Number: [id number] Group Number: NA Subscriber Identifier: NA Relationship to Subscriber: self Coverage Type: Medicare PPO Coverage Verification Date: NA Telecom: Address:
--- OUTSIDE RECORDS SUMMARY | 2025-08-16 23:59 | XMS_ITS | Continuity of Care Document ---
Author Organization [facility] Address [address] [place] [address]- Care Team Providers Care Concrete Grinder Operator Name Role Phone Keiry Au NP Primary Care Physician [phone] [id number]): [facility]28[facility] - 08/16/25 [facility] [address] [place] [address]- Attending Physician: Christian Pandey MD Referring Physician: Keiry Au NP Encounter Type: Pre Office Visit Allergies, Adverse Reactions, Alerts No Known Medication [...] Maintenance, 12/19/18 8:32:57 AM EDT Start Date: 12/19/18 Status: Ordered Medication Dispense Status: Completed Total Allowed Fills: 1 Fills Dispensed: 0 Social History Social History Type Response Sex Sex Representation Female (finding) Patient Care team information Care Team Personnel Name: Elizabeth Urbinaricia Position: [facility] Onco RN Member Role: Primary Care Nurse Name: Lenore Wilkinson RN Position: [facility] AMB Nurse Member Role: Primary Care Nurse Name: Keiry Au NP Position: [facility] Outreach Member Role: PCP Address: [address] [place] [address] Internal Medicine [address] Telecom: Care Team Related Persons Name: JESSENIA PEÑA Insurance Providers Guarantor name: MEAGAN Health Plan Information #: 1 Payer: MEDICARE B Payer Identifier: Member Number: [id number] Group Number: Subscriber Identifier: [id number] Relationship to Subscriber: self Coverage Type: NA Coverage Verification Date: Telecom: Address: Health Plan Information #: 2 Payer: SON[employer] ITA CONSUELO BOWEN Payer Identifier: Member Number: [id number] Group Number: Subscriber Identifier: [id number] Relationship to Subscriber: self Coverage Type: Medicare Other Coverage Verification Date: Telecom: Address: Health Plan Information #: 3 Payer: [facility] (2NDRY ONLY Payer Identifier: Member Number: [id number] Group Number: Subscriber Identifier: [id number] Relationship to Subscriber: self Coverage Type: Medicare Managed Care (Includes Medicare Advantage Plans) Coverage Verification Date: Telecom: Address: Health Plan Information #: 4 Payer: [employer] Payer Identifier: Member Number: [id number] Group Number: Subscriber Identifier: [id number] Relationship to Subscriber: self Coverage Type: Medicare PPO Coverage Verification Date: Telecom: Address:
--- NOTE | ~2025-08-19 | MR_ITS ---
EXAM: MRI Lumbar Spine without Contrast. TECHNIQUE: Multiplanar multisequence MRI of the lumbar spine with performed without contrast. INDICATION: Chronic low back pain, left leg pain, right foot numbness PRIOR: None FINDINGS: 5 non-rib bearing lumbar segments are assumed for numbering purposes. If level specific intervention is planned, correlate with an x-ray to ensure concordant numbering. Marrow and end-plates: Within L1 vertebral body there is lesion that demonstrates increased signal on T1 and T2 sequences measuring 14 mm consistent with a benign vertebral hemangioma. There is mixed Modic 1 and Modic 3 changes at L2-3. There is Modic 2 change at L4-5. Alignment: L2-3 demonstrates grade 1 retrolisthesis. Soft tissues: There are lesions within the left kidney that demonstrate low signal on T1 imaging and high signal on fluid sensitive sequences consistent with benign simple renal cysts. Conus: The termination of conus medullaris is within normal limits at the level of L1. T12-L1: There is no disc bulge, herniation, spinal stenosis, or foraminal narrowing. L1-L2: There is mild facet arthropathy with mild thickening of ligamentum flavum. Disc is preserved. There is no spinal stenosis or foraminal narrowing. L2-L3: There is mild loss disc height and circumferential broad-based disc bulge with left central and foraminal broad disc extrusion and focal right foraminal extrusion with mild ligament flavum thickening resulting in sogv-gf-zxzoknof spinal stenosis. There is posterior displacement of the right L3 nerve root in the subarticular zone and encroachment of the left. There is mild bilateral foraminal narrowing. L3-L4: There is disc desiccation and mild loss disc height with circumferential broad-based disc bulge and mild facet hypertrophy with ligamentum flavum thickening not causing spinal stenosis. There is mild right greater than left subarticular zone narrowing and mild right foraminal narrowing. There is no left foraminal narrowing. L4-L5: There is moderate loss of disc height and degenerative endplate changes. There is moderate to severe facet arthropathy with mild ligament flavum thickening. There is no spinal stenosis. There is mild narrowing of the left greater than right subarticular zones and mild bilateral foraminal narrowing greater on the right. L5-S1: There is circumferential broad-based disc bulge and central annular fissuring. There is mild facet arthropathy and moderate thinning of ligamentum flavum. There is no spinal stenosis. There is mild narrowing of left greater than right subarticular zones without foraminal narrowing. MR/MR lumbar spine wo con IMPRESSION: L2-L3: There is disc bulge and herniation with ryrs-fv-wkaoilkv spinal stenosis and posterior displacement of the right L3 nerve root in the subarticular zone with encroachment of the left. L3-L4: There is mild right greater than left subarticular zone narrowing and mild right foraminal narrowing. L4-L5: There is mild narrowing of the left greater than right subarticular zones and mild bilateral foraminal narrowing greater on the right. L5-S1: There is mild narrowing of left greater than right subarticular zones. Electronically signed by: Cornell Church MD 08/20/2025 09:53 AM [facility]
--- OUTSIDE RECORDS SUMMARY | 2025-08-19 07:59 | XMS_ITS | Patient Health Record ---
Author Organization [facility] Address [address] [address] Care Team Providers Care First Press Operator Name Role Phone Roe MACHINED PARTS QUALITY INSPECTOR, Keiry Primary Care Provider Esteban Mendoza Unavailable [phone] Allergies No Known Allergies Reason For Referral [...] Status Risk Notes Problem Acquired hallux valgus (36256142) Hallux valgus (acquired), right foot (M20.11) Active confirmed Problem Localized, primary osteoarthritis of the ankle and/or foot (406429916) Primary osteoarthritis, right ankle and foot (M19.071) Active confirmed Problem Rheumatoid arthritis (44943593) Rheumatoid arthritis involving both feet, unspecified whether rheumatoid factor present (M06.9) Active confirmed Plan Of Treatment Pending Test Test Name Order Date X ray : Foot, right 3V 04/27/2022 Insurance Providers Payer Name Payer Address Payer Phone Subscriber Number Group Number Insured Name Patient Relationship to Insured Coverage Start Date Coverage End Date Medicare National [employer] [address] [place] [address] [id number] Janett Grande Self - patient is the insured [employer] Preferred [address] [place] [address] [id number] Fabrice Aviles i Spouse - patient is the spouse of the insured Medical (General) History Medical History History ICD Code rheumatoid arthritis Measles Chicken pox Depression Headaches Joint implants/screws Numbness Surgical History Surgery Date(Month/Year) left knee replacement 10/16 Thumb Surgery 99 shoulder arthroscopy 2010 hysterectomy 2003
--- OUTSIDE RECORDS SUMMARY | 2025-08-19 07:59 | XMS_ITS | Clinical Summary ---
Author Organization [facility] Address [address] [address] Phone Care Team Providers Care Axle Inspector Name Role Phone Keiry Au CNP Unavailable [...] day 27 tablet 3 03/12/20 25 Active celecoxib (CELEBREX) 200 MG capsule TAKE 1 CAPSULE BY MOUTH EVERY DAY 90 capsule 1 05/09/20 25 Active metoprolol tartrate (LOPRESSOR) 25 MG tabletIndicatio ns:Paroxysmal atrial fibrillation TAKE 1 TABLET (25 MG TOTAL) BY MOUTH DAILY NEEDED (HEART IRREGULARITY ). 90 tablet 1 05/28/20 25 Active apixaban (ELIQUIS) 5 mg tablet Take 1 tablet (5 mg total) by mouth 2 (two) times a day. 60 tablet 11 05/31/20 25 026 Active atorvastatin (LIPITOR) 10 MG tablet Take 1 tablet (10 mg total) by mouth daily. 90 tablet 3 07/02/20 25 Active traZODone (DESYREL) 50 MG tabletIndicatio ns:Psychophysio logic insomnia TAKE 1 TO 2 TABLETS BY MOUTH NIGHTLY AT BEDTIME 180 tablet 08/03/20 25 Active azaTHIOprine (IMURAN) 50 mg tabletIndicatio ns:Seropositive rheumatoid arthritis Take 1 tablet (50 mg total) by mouth daily for 7 days, THEN 1 tablet (50 mg total) 2 (two) times a day for 21 days. 49 tablet 08/07/20 25 026 Active predniSONE (DELTASONE) 5 MG tabletIndicatio ns:Seropositive rheumatoid arthritis Take 3 tablets (15 mg total) by mouth daily with breakfast for 5 days, THEN 2 tablets (10 mg total) daily with breakfast for 7 days, THEN 1 tablet (5 mg total) daily with breakfast for 9 days. 38 tablet 08/07/20 25 025 Active traZODone (DESYREL) 50 MG tabletIndicatio ns:Psychophysio logic insomnia Take 1-2 tablets (50-100 mg total) by mouth nightly at bedtime. 180 tablet 05/04/20 25 025 Discontinued leflunomide (ARAVA) 20 MG tabletIndicatio ns:Seropositive rheumatoid arthritis Take 1 tablet (20 mg total) by mouth daily. 90 tablet 07/03/20 25 025 Discontinued(In effective) Active Problems Problem Noted Date Diagnosed Date Encounter for monitoring azathioprine therapy Assessment & Plan (08/07/2025 2:29 PM EST): Common azathioprine side effects reviewed briefly and written medication information provided for patient reference today. She is aware of need for monitoring labs about 3 to 3.5 weeks following initiation. If she decides to proceed with minimally invasive neurosurgery, I will need to speak directly with her neurosurgeon in [place] to discuss perioperative immunosuppression. There are no randomized control trials looking specifically at role of withholding azathioprine and minimally invasive neurosurgery. Thumb pain, left 05/28/2025 Overview (08/07/2025): local steroid injection to palmar aspect basilar thumb joint 04/2025 Assessment & Plan (08/07/2025 2:27 PM EST): Less than 3 months of benefit following most recent local steroid injection Assessment & Plan (05/28/2025 10:43 AM EDT): [...] planning on addressing mild hearing loss with superintendent oil well services, and will do trial increase of antidepressant. [...] (02/05/2025): ? Secondary Sjogren's SSA/SSB negative/negative 01/2024 Right buttock pain 10/14/2021 Assessment & Plan [...] Continue Eliquis 5 mg twice daily, with [id number] score of 4, so anticoagulation would be recommended (age, sex, history of TIA). Patient is working on getting established with [facility] cardiology, in the meantime we will order [...] of neurology. 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 01/2023 and dc'd d/t neutropenia Upadacitinib 09/2024 to 03/2025 -persistent / recurrent neutropenia. Leflunomide 04/2025 - 07/2025 tx failure + oral ulcers Assessment & Plan (08/07/2025 2:26 PM EST): Discontinue leflunomide given treatment failure plus oral ulcers. Treatment options at this time are limited, and patient has declined implantation of vagus nerve stimulator device. She is amenable to trial of azathioprine (recalls remote history of azathioprine resulting in nausea); prednisone taper prescribed for short-term benefit given the severity of her current symptoms. We discussed that rheumatoid arthritis is relatively unlikely to directly affect the axial spine. Assessment & Plan (05/08/2025 2:17 PM EDT): [...] would like to proceed with referral to [facility] for [place]. Otherwise, we will proceed with [...] with more frequent dosing. Records from former head sugar reprocess operator reviewed briefly today; will obtain baseline anti-CCP and updated inflammatory markers. Co-morbid secondary osteoarthritis of multiple joints, notably MTPs and right wrist. Assessment & Plan (10/01/2023 5:44 PM EST): Relatively stable on current regimen of Kevzara and Celebrex, although she would like to transition care more locally. Referral placed to Dr. Mercado of [facility]. Assessment & Plan (09/11/2022 10:36 AM [...] Lane. We did discuss potential referral to [facility] or [facility] but for now she would like to continue with local head sugar reprocess operator. Assessment & Plan (10/04/2019 12:42 PM EST): [...] Problem Noted Date Diagnosed Date Resolved Date Encounter for monitoring leflunomide therapy 08/07/2025 Overview (08/04/2024): Sarilumab 03/2021 to current Quant [...] magic mouthwash today. Updated medication monitoring labs. Cerumen impaction 11/01/2023 10/14/2024 Preop examination 09/11/2022 [...] with negative cardiac enzymes and normal EKG, clinic administrator felt patient's pain was noncardiac in etiology. Questions whether this may be musculoskeletal. Exercise tolerance test unremarkable. If patient has exertional chest symptoms could get a more sensitive test like a stress echo or nuclear stress test and clinic administrator has arranged for follow-up in his office in 1 month Radicular pain of right lower extremity 10/04/2019 10/14/2021 Assessment & Plan (10/04/2019 12:45 PM EST): Radicular pain of right knee and lower leg. Slow improvements with SI joint injection and physical therapy. Follow up with ALEXSANDER Mortensen at [facility] as needed. Left shoulder pain 11/10/2018 0 Cellulitis of toe of right foot 08/31/2018 09/27/2018 Assessment & Plan (08/31/2018 11:20 AM EST): History of right great toe cellulitis, treated by head sugar reprocess operator with Doxycycline. Residual symptoms of redness and tenderness of area. Will do referral to wire strander for urgent appointment, particularly due to history [...] atrial fibrillation No evidence of arrhythmia on monitoring analyst Assessment & Plan (10/08/2020 6:10 PM EST): [...] of disease. The 10-year ASCVD risk score (Mapletongreg CARLOS Jr., et al., 2013) is: 3.4% Values [...] Encounters Date Type Department Care Team Description 08/07/2025 1:40 PM EST Office Visit [facility] [address] [place] [address] [place] [address] Carla Mercado MD, MPH Seropositive rheumatoid arthritis (Primary Dx); Encounter for monitoring azathioprine therapy; Thumb pain, left 08/03/2025 Refill [facility] [address] [place] [address] Keiry Au CNP Medication Refill 07/02/2025 Refill [facility] [address] [place] [address] [place] [address] Smiley De Leon MD Med Change Request 07/02/2025 Refill [facility] [address] [place] [address] Ghazala De La Rosa CMA Medication Refill (Atorvastatin) 06/19/2025 12:30 PM EDT Office Visit [facility] [address] [place] [address] [place] [address] Arnaldo Mcdonough MD Intractable migraine with aura without status migrainosus (Primary Dx); Amaurosis fugax; Atrial fibrillation, unspecified type 06/13/2025 Orders Only [facility] [address] [place] [address] Carla Mercado MD, MPH Encounter for monitoring leflunomide therapy (Primary Dx) 06/08/2025 9:18 AM EDT - 06/08/2025 11:59 PM EDT Hospital Encounter [facility] [address] [place] [address] Keiry Au CNP Discharge Disposition: Home or Self Care 06/07/2025 7:54 AM EDT - 06/07/2025 11:59 PM EDT Hospital Encounter [address] [address] Keiry Au CNP Discharge Disposition: Home or Self Care 06/07/2025 Refill [facility] [address] [place] [address] Carla Mercado MD, MPH Medication Refill 05/31/2025 Refill [facility] [address] [place] [address] Ghazala De La Rosa CMA Medication Refill (Eliquis) 05/30/2025 1:24 PM EDT - 05/30/2025 4:02 PM EDT Emergency [facility] [address] [place] [address] Jean Garcia MD Discharge Disposition: Home or Self Care 05/30/2025 Telephone [facility] [address] [facility] [address] [place] [address] Keiry Au CNP [place] SOB 05/28/2025 10:10 AM EDT Office Visit [facility] [address] [place] [address] Carla Mercado MD, MPH Thumb pain, left (Primary Dx); Encounter for monitoring leflunomide therapy 05/28/2025 Telephone [facility] [address] [place] [address] Carla Mercado MD, MPH Injections 05/27/2025 Refill [facility] [address] [facility] [address] [place] [address] Keiry Au, PAROLE AGENT Med Change Request 05/04/2025 Procedure [facility] [address] [place] [address] from Last 3 Months Immunizations Immunization Administration [...] your housing situation today? 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 Not on file Not on file Not on file Last Filed Vital Signs Vital Sign Reading Time Taken Comments Blood Pressure 110/62 08/07/2025 1:33 PM EST Pulse 91 08/07/2025 1:33 PM EST Temperature 36.4 C (97.6 F) 05/30/2025 10:23 AM EDT Respiratory Rate 20 05/30/2025 3:30 PM EDT Oxygen Saturation 98% 08/07/2025 1:33 PM EST Inhaled Oxygen Concentration - - Weight 67.1 kg (148 lb) 08/07/2025 1:33 PM EST w ith shoes Height 162.6 cm (5' 4.02 ) 08/07/2025 1:33 PM ES T Body Mass Index 25.39 08/07/2025 1:33 PM EST Plan of Treatment Upcoming Encounters Date Type Department Care Team (Late st Contact Info) Description 11/20/2025 11:10 AM EDT Office Visit [facility] [address] [place] [address] Carla Mercado MD, MPH [address] [facility], [address] [place] [address] 12/27/2025 1:00 PM EDT Office Visit [facility] [address] [place] [address] Arnaldo Mcdonough MD [address] [facility]nd [place] [address] [email or web address] Health Maintenance Due Date Last Done Comments COLOGUARD 2000 FIT TEST 2000 FOBT 2000 SIGMOIDOSCOPY 2000 VIRTUAL COLONOSCOPY 2000 DEPRESSION SCREENING 10/06/2025 10/06/2024 COVID-19 VACCINE (13 - Moderna risk 2024- season) 2025 06/05/2025, 11/13/2024, 06/12/2024, Additional history exists ALKALINE PHOSPHATASE LEVEL 06/07/202606/07, 02/05/2025, 11/02/2024, Additional history exists CREATININE LEVEL 06/07/2026 06/07/2025, 08/2024, 05/01/2025, Additional [...] Implanted - Out of Service Type Area Career And Guidance Counselor Device Identifier Shelf Expiration Date Model / [...] ECG 12-LEAD STAT 05/30/2025 10:23 AM EDT BI MAMMOGRAM SCREENING WITH TOMOSYNTHESIS WITH [...] 4.00 - 11.00 K/uL 07/04/2025 11:33 AM [facility] RBC 4.66 4.00 - 5.20 M/uL 07/04/2025 11:33 AM [facility] Hemoglobin 13.6 12.0 - 16.0 g/dL 07/04/2025 11:33 AM [facility] Hematocrit 42.0 36.0 - 46.0 % 07/04/2025 11:33 AM [facility] MCV 90.1 80.0 - 100.0 fL 07/04/2025 11:33 AM [facility] MCH 29.2 27.0 - 31.0 pg 07/04/2025 11:33 AM [facility] MCHC 32.4 32.0 - 36.0 g/dL 07/04/2025 11:33 AM [facility] MPV 10.5 8.4 - 12.0 fL 07/04/2025 11:33 AM [facility] RDW-CV 12.5 11.5 - 14.5 % 07/04/2025 11:33 AM [facility] PLT 164 150 - 450 K/uL 07/04/2025 11:33 AM [facility] Neutrophils 52.4 % 07/04/2025 11:33 AM [facility] Lymphocytes 31.9 % 07/04/2025 11:33 AM [facility] Monocytes 13.2 % 07/04/2025 11:33 AM [facility] Eosinophils 1.9 % 07/04/2025 11:33 AM [facility] Basophils 0.6 % 07/04/2025 11:33 AM [facility] Imm Grans 0.0 % 07/04/2025 11:33 AM [facility] NRBC 0.0 <=0.0 /100 WBCs 07/04/2025 11:33 AM [facility] Absolute Neutrophils 1.66(L) 1.92 - 7.60 K/uL 07/04/2025 11:33 AM [facility] Comment:The reference range for individuals with the Rai null phenotype (Fy(a-b-)) is 1.21-5.39 K/uL. Absolute Lymphocytes 1.01 0.72 - 4.10 K/uL 07/04/2025 11:33 AM [facility] Absolute Monocytes 0.42 0.16 - 1.10 K/uL 07/04/2025 11:33 AM [facility] Absolute Eosinophils 0.06 0.00 - 0.50 K/uL 07/04/2025 11:33 AM [facility] Absolute Basophils 0.02 0.00 - 0.15 K/uL 07/04/2025 11:33 AM [facility] Absolute Imm Grans 0.00 0.00 - 0.09 K/uL 07/04/2025 11:33 AM EST [facility] Absolute NRBC 0.00 <=0.00 K cells/uL 07/04/2025 11:33 AM [facility] Absolute Neutrophils 1.66(L) 1.92 - 7.60 K/uL 07/04/2025 11:33 AM [facility] Comment:Automated cell count . Manual ANC may differ if performed. Diff Type Auto 07/04/2025 11:33 AM [facility] Blood Venipuncture / Unknown 07/04/2025 7:54 AM EST 07/04/2025 7:54 AM EST us Carla Mercado MD, MPH LAB BLOOD BKR ORDERABLES Final Result [address] [address] * TTE COMPREHENSIVE (06/08/2025 10:23 AM EDT) [...] interatrial septum appears normal. us Keiry Au CNP CV ECHO ORDERABLES Fin al Result * Comprehensive metabolic panel (06/07/2025 7:55 AM EDT) SODIUM 141 133 - 146 mmol/L [facility] POTASSIUM 4.5 3.3 - 5.1 mmol/L [facility] CHLORIDE 105 96 - 108 mmol/L [facility] CO2 28 21 - 35 mmol/L [facility] BUN 18 6 - 19 mg/dL [facility] CREATININE 0.60 0.5 - 1.5 mg/dL [facility] GLUCOSE 93 70 - 99 mg/dL [facility] ALBUMIN 4.1 3.9 - 4.8 g/dL [facility] TOTAL PROTEIN 6.9 6.5 - 8.0 g/dL [facility] CALCIUM 9.4 8.4 - 10.3 mg/dL [facility] ALKALINE PHOSPHATASE 98 39 - 117 U/L [facility] TOTAL BILIRUBIN 0.3 0.0 - 1.2 mg/dL [facility] AST 31 0 - 37 U/L [facility] ALT 26 0 - 40 U/L [facility] GLOBULIN 2.8 1 - 4.8 g/dL [facility] EGFR 97 >59 mL/min/1.7 3m2 [facility] Comment:Estimated glomerular filtration rate calculated using the CKD-EPI refit equation. ANION GAP 13 10 - 20 mmol/L [facility] Blood 06/07/2025 7:55 AM EDT 06/07/2025 7:58 AM EDT Carla Mercado MD, MPH LAB BLOOD BKR ORDERABLES Final Result Performing Organization Address City/[facility]/ZIP Co de Phone Number [address] [address] * (ABNORMAL) Sedimentation rate (ESR) (06/07/2025 7:55 AM EDT) ESR 31(H) 0 - 30 mm/h [facility] Blood 06/07/2025 7:55 AM EDT 06/07/2025 7:58 AM EDT Carla Mercado MD, MPH LAB BLOOD BKR ORDERABLES Final Result [address] [address] * (ABNORMAL) CBC and differential (06/07/2025 7:55 AM EDT) Only the most recent of2 resultswithin the time period is included. WBC 2.71(L) 4.00 - 11.00 K/uL [facility] RBC 4.44 4.00 - 5.20 M/uL [facility] HGB 13.1 12.0 - 16.0 g/dL [facility] HCT 40.2 36.0 - 46.0 % [facility] PLT 156 150 - 450 K/uL [facility] MCV 90.5 80.0 - 100.0 fL [facility] MCH 29.5 27.0 - 31.0 pg [facility] MCHC 32.6 32.0 - 36.0 g/dL [facility] RDW 12.2 11.5 - 14.5 % [facility] MPV 10.6 8.4 - 12.0 fL [facility] NRBC 0.00 0.00 /100 WBCs [facility] ABSOLUTE NRBC 0.00 0.00 K/uL [facility] DIFF METHOD Auto [facility] NEUTS 47.5(L) 48.0 - 76.0 % [facility] LYMPHS 35.1 18.0 - 41.0 % [facility] MONOS 14.0(H) 4.0 - 11.0 % [facility] EOS 3.0 0.0 - 5.0 % [facility] BASOS 0.4 0.0 - 1.5 % [facility] Granulocytes, immature (%) 0.0 0.0 - 0.9 % [facility] ABSOLUTE NEUTS 1.29(L) 1.92 - 7.60 K/uL [facility] ABSOLUTE LYMPHS 0.95 0.72 - 4.10 K/uL [facility] ABSOLUTE MONOS 0.38 0.16 - 1.10 K/uL [facility] ABSOLUTE EOS 0.08 0.00 - 0.50 K/uL [facility] ABSOLUTE BASOS 0.01 0.00 - 0.15 K/uL [facility] Granulocytes, immature 0.00 0.00 - 0.09 K/uL [facility] Blood 06/07/2025 7:55 AM EDT 06/07/2025 7:58 AM EDT us Carla Mercado MD, MPH LAB BLOOD BKR ORDERABLES Final Result [facility] [address] [place] [address] * (ABNORMAL) C-Reactive Protein (06/07/2025 7:55 AM EDT) C REACTIVE PROTEIN 11.7(H) 0.0 - 4.0 mg/L [facility] Blood 06/07/2025 7:55 AM EDT 06/07/2025 7:58 AM EDT Carla Mercado MD, MPH LAB BLOOD BKR ORDERABLES Final Result Performing Organization Address City/[facility]/ZIP Co de Phone Number [address] [address] * CPK (creatine kinase) (06/07/2025 7:55 AM EDT) CREATINE KINASE 51 21 - 215 U/L [facility] Blood 06/07/2025 7:55 AM EDT 06/07/2025 7:58 AM EDT Carla Mercado MD, MPH LAB BLOOD BKR ORDERABLES Final Result Performing Organization Address [facility] Co de Phone Number [address] [address] * (ABNORMAL) Lipid panel (06/07/2025 7:55 AM EDT) HDL 81 mg/dL [facility] Comment: Interpretation <40 mg/dL: Low HDL cholesterol (major risk factor for CHD) Greater than or equal to 60 mg/dL: High HDL cholesterol ( negative risk factor for CHD) HDL - cholesterol is affected by a number of factors, e.g. smoking, excerise, hormones, sex and age. CHOLESTEROL 160 0 - 240 mg/dL [facility] TRIGLYCERIDES 43 30 - 160 mg/dL [facility] LDL 70 50 - 129 mg/dL [facility] Comment: LDL levels in terms of risk for coronary heart disease: <100 mg/dL: Optimal 100-129 mg/dL: Near or above optimal 130-159 mg/dL: Borderline high 160-189 mg/dL: High >190 mg/dL: Very High CARDIAC RISK RATIO 2.0(L) 3.3 - 4.4 C [facility] Blood 06/07/2025 7:55 AM EDT 06/07/2025 7:59 AM EDT us Keiry Au CNP LAB BLOOD BKR ORDERABL ES Final Result Performing Organization Address [facility]/ZIP Co de Phone Number [address] [address] * D-dimer (05/30/2025 2:48 PM EDT) D-DIMER 301 <500 ng/mL FEU [facility] Comment:In patients with low to moderate pre-test probability scores for VTE (PE or DVT), a D-Dimer cut-off less than 500 ng/mL (FEU) has a negative predictive value (NPV) of 97 to 100%. Blood 05/30/2025 2:48 PM EDT 05/30/2025 3:14 PM EDT us Jean Garcia MD LAB BLOOD BKR ORDERABLES Aleja l Result Performing Organization Address [facility] Co de Phone Number [address] [address] * Lab Add On: ddimer (05/30/2025 2:03 PM EDT) TEST REQUESTED DDIMER [facility] Comments (Chemistry) Add on order being processed. Floor or provider will be notified if testing cannot be performed [facility] 05/30/2025 2:03 PM EDT 05/30/2025 2:36 PM EDT Jean Garcia MD LAB BLOOD ORDERABLES Final Re sult Performing Organization Address [facility]/ZIP Co de Phone Number [address] [address] * Troponin (05/30/2025 11:34 AM EDT) Only the most recent of2 resultswithin the time period is included. Troponin-T, HS Gen5 <6 0 - 9 ng/L [facility] Blood 05/30/2025 11:3 4 AM EDT 05/30/2025 11:37 AM EDT us Jaron Doshi MD LAB BLOOD BKR ORDERABLES Final R esult [address] [address] * XR CHEST PA AND LATERAL 2 VIEWS (05/30/2025 11:14 AM EDT) Anatomical Region Laterality Modality Chest Computed Radiogr aphy 05/30/2025 11:5 5 AM EDT Impressions 05/30/2025 11:55 AM EDT No acute abnormality. Narrative 05/30/2025 11:55 AM EDT XR CHEST PA AND LATERAL 2 VIEWS Referring clinician's provided indication for this examination in [facility]: Dyspnea (Shortness of Breath) COMPARISON: XR CHEST PA AND LATERAL 2 VIEWS FINDINGS: Devices/Tubes/Lines: None. Lungs: No focal consolidation or pulmonary edema. Pleura: No pleural effusion or pneumothorax. Heart/Mediastinum: Normal heart and mediastinum. Bones/Soft Tissues: Mild thoracic spine degenerative changes. Procedure Note Aston Thomas MD, PhD - 05/30/2025 XR CHEST PA AND LATERAL 2 VIEWS Referring clinician's provided indication for this examination in [facility]:Dyspnea (Shortness of Breath) COMPARISON: XR CHEST PA AND LATERAL 2 VIEWS FINDINGS: Devices/Tubes/Lines: None. Lungs: No focal consolidation or pulmonary edema. Pleura: No pleural effusion or pneumothorax. Heart/Mediastinum: Normal heart and mediastinum. Bones/Soft Tissues: Mild thoracic spine degenerative changes. IMPRESSION: No acute abnormality. us Jaron Doshi MD IMG XR CHEST Final Result * NT-proBNP (05/30/2025 10:43 AM EDT) NT-PROBNP 125 0 - 450 pg/mL [facility] Blood 05/30/2025 10:4 3 AM EDT 05/30/2025 10:51 AM EDT us Jaron Doshi MD LAB BLOOD BKR ORDERABLES Final R esult Performing Organization Address City/[facility]/ZIP Co de Phone Number [address] [address] * (ABNORMAL) Basic metabolic panel (05/30/2025 10:43 AM EDT) Pathologist [facility] SODIUM 141 133 - 146 mmol/L [facility] CHLORIDE 104 96 - 108 mmol/L [facility] POTASSIUM 4.6 3.3 - 5.1 mmol/L [facility] CO2 28 21 - 35 mmol/L [facility] BUN 23(H) 6 - 19 mg/dL [facility] CREATININE 0.70 0.5 - 1.5 mg/dL [facility] GLUCOSE 95 70 - 99 mg/dL [facility] CALCIUM 9.7 8.4 - 10.3 mg/dL [facility] EGFR 93 >59 mL/min/1.7 3m2 [facility] Comment:Estimated glomerular filtration rate calculated using the CKD-EPI refit equation. ANION GAP 14 10 - 20 mmol/L [facility] Blood 05/30/2025 10:4 3 AM EDT 05/30/2025 10:51 AM EDT us Jaron Doshi MD LAB BLOOD BKR ORDERABLES Final R esult Performing Organization Address City/[facility]/ZIP Co de Phone Number [address] [address] * ECG 12-LEAD (05/30/2025 10:23 AM EDT) Ventricular Rate EKG/MIN 65 BPM [facility] Atrial Rate 65 BPM [facility] OH Interval 188 ms [facility] QRS Duration 72 ms [facility] QT Interval 402 ms [facility] QTC Interval 418 ms [facility] P [place] 65 degrees [facility] R Wave [place] 69 degrees [facility] T Wave [place] 69 degrees [facility] 05/30/2025 10:2 3 AM EDT 05/31/2025 7:43 AM EDT Narrative [facility] - 05/31/2025 7:43 AM EDT Normal sinus rhythm Normal ECG When compared with ECG of 01-May-2025 14:41, Nonspecific T wave abnormality no longer evident in Inferior leads T wave inversion less evident in Anterior leads Confirmed by Sunil Ho ([id number]) on 05/31/2025 7:43:50 AM us Jaron Doshi MD ECG ORDERABLES Final Result [facility] * BI MAMMOGRAM SCREENING WITH TOMOSYNTHESIS WITH [...] of the results and recommendations. Keiry Au [facility] IMG MG EXAMS Final Result * [...] 3. [employer] [email or web address] Keiry Au [facility] BD BONE DENSITY DE XA Final Result * ENDOSCOPY, COLON (09/23/2020 10:12 AM EST) Narrative Transcriptions Kade Powell MD - 09/23/2020 10:12 AM EST Patient Name: Janett Mohan Attending MD:: KADE POWELL MD, Procedure Date: 09/23/2020 10:12 AM Date of : 1955 Age: 65 Admit Type: Outpatient Gender: Female Room: [place] [address] Referring MD: ROLO ESTEVEZ MD Exam Type: [...] bowel preparation was evaluated using the BBPS (Worton Bowel Preparation Scale) withscores of: Right Colon [...] 10:12 AM Procedure Code(s): --- Professional --- 14336, Colonoscopy, flexible; diagnostic, including collection of specimen(s) by brushing or washing, when performed (separateprocedure) --- Technical --- 97379, Colonoscopy, flexible; diagnostic, including collection of specimen(s) by brushing or washing, when performed (separateprocedure) Diagnosis Code(s): --- Professional --- Z12.11, Encounter for screening for malignantneoplasm of colon K64.8, Other hemorrhoids --- Technical --- Z12.11, Encounter for screening for malignantneoplasm of colon K64.8, Other hemorrhoids CPT copyright 2018 [employer]. All rights reserved. The codes documented in this report are preliminary and upon benefits sales consultant reviewmay be revised to meet current compliance requirements. Procedure Date: 09/23/2020 10:12:[address] [place] [address] Rolo Estevez MD GI PROCEDURE ORDERABLES Aleja l Result from Last 3 Months or Most Recently Relevant to Health Maintenance Insurance MEDICARE PART A & B [facility] ENHANCE SUPPLEMENT MEDICARE PART A & B [facility] [employer] ENHANCE SUPPLEMENT MEDICARE PART A & B [facility] MEDICARE ENHANCE SUPPLEMENT MEDICARE PART A & B [facility] MEDICARE ENHANCE SUPPLEMENT MEDICARE PART A & B [facility] MEDICARE ENHANCE SUPPLEMENT [place] [id number] MEDICARE PART A & B [facility] MEDICARE ENHANCE SUPPLEMENT MEDICARE PART A & [place] [address] [place] [address] MEDICARE ENHANCE SUPPLEMENT MEDICARE PART A & B [facility] MEDICARE ENHANCE SUPPLEMENT MEDICARE PART A & B [facility] MED[employer] ENHANCE SUPPLEMENT [employer] Advance Directives For more information, please contact: [phone] (9AM - 5PM [place], Wednesday-Wednesday) Documents on File Type Date Recorded Patient Supervisor Composing Room Expl anation POLST 01/16/2025 completed POLST * [...] 7:42 AM 08/14/2016 1:14 PM Care Teams Axle Inspector Relationship Specialty Start Date End Date Keiry Au CNP [address] [place] [address] [place] [address] PCP - General Nurse Practitioner 03/14/25 Keiry Au CNP [address] [place] [address] Primary Care Physician 06/17/17 Keiry Au CNP [address] [place] [address] [place] [address] Insurance Assigned Provider 12/03/24 Additional Source Comments The information contained in this document represents components of the legal health record. It is not the complete legal health record.[facility]
--- OUTSIDE RECORDS SUMMARY | 2025-08-19 07:59 | XMS_ITS | Encounter Summary ---
Author Organization [facility] Address [address] [place] [address] Phone Care Team Providers Care Consumer Loan Underwriter Name Role Phone Keiry Au CNP Unavailable Laurie Eaton MD Unavailable [phone] Keiry Au CNP Primary Care Provider Keiry Au CNP Unavailable [phone] Chad Esposito DO Primary Care Provider Keiry Au CNP Primary Care Provider Encounter Details Date Type Department Care Team (Late st Contact Info) Description 06/08/2023 Procedure Pass [facility], [facility] [address] [place] [address] Social History Tobacco Use Types Packs/Day Years [...] 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 Date 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 Not on file Not on file Not on file documented as of this encounter Plan of Treatment Upcoming Encounters Date Type Department Care Team (Late st Contact Info) Description 11/20/2025 11:10 AM EDT Office Visit [facility] Rhe[facility]ology [facility] [address] [place] [address] [place] [address] Carla Mercado MD, MPH [address] [place] [address], [address] [place] [address] 12/27/2025 1:00 PM EDT Office Visit [facility] Neurology Clinic [address] [place] [address] [place] [address] Arnaldo Mcdonough MD [address] [place] [address], 2[address] [place] [address] [email or web address] documented as of this encounter Visit Diagnoses Not on filedocumented in this encounter Additional Health Concerns Infection Onset Date Last Indicated Resolved Time CoV-Risk 05/19/2024 05/19/2024 05/30/2024 1:22 AM EDT CoV-Risk 08/29/2024 08/29/2024 09/09/2024 1:22 AM EST Assessment Noted Time PHQ-2 Depression Total Score: 0 10/11/19 10:22 AM EST documented as of this encounter Care Teams Consumer Loan Underwriter Relationship Specialty Start Date End Date PheKeiry freitas CNP [address] [place] [address] PCP - General Internal Medicine 02/12/23 03/04/25 Chad Esposito DO [address] [place] [phone] [email or web address] PCP - General Internal Medicine 03/05/25 03/13/25 Keiry Au CNP [address] [place] [address] PCP - General Nurse Practitioner 03/14/25 Keiry Au CNP [address] [place] [address] Primary Care Physician 06/17/17 Laurie Eaton MD [address] [place] [phone] Insurance Assigned Provider 12/04/23 12/03/24 Keiry Au CNP [address] [place] [phone] Insurance Assigned Provider 12/03/24 documented as of this encounter Additional Source Comments The information contained in this document represents components of the legal health record. It is not the complete legal health record.[facility]
--- OUTSIDE RECORDS SUMMARY | 2025-08-19 07:59 | XMS_ITS | Clinical Summary ---
Author Organization [facility] Address [address] [place], [place] [id number] Care Team Providers Care Head Automatic Sawyer Name Role Phone Unavailable Primary Care Provider Unavailabl e Medications tocilizumab (ACTEMRA) 162 mg/0.9 mL Syrg injection 0.9 ml , Subcutaneous Active amoxicillin (AMOXIL) 500 MG capsule 4 capsules 1 hour pre-dental procedure , Orally 8 Active celecoxib (CeleBREX) 100 MG capsule 1 capsule with food Once a day , Orally Active DULoxetine (CYMBALTA) [address] capsule 1 capsule Twice a day , Orally Active oxyCODONE (ROXICODONE) 5 MG immediate release tablet 1-2 tablets every 4 hrs prn for post op pain , Orally 8 Active ondansetron (ZOFRAN) 4 MG tablet 1 tablets Q 6 hrs prn for PONV , Orally 8 Active SUMAtriptan (IMITREX) 100 MG tablet Take 1 tablet (100 mg total) by mouth daily as needed (headache). Active senna-docusate (PERICOLACE) 8.6-50 mg tablet Take 2 tablets by mouth at bedtime. Active polyethylene glycol (MIRALAX) 17 gram packet Take 1 packet (17 g total) by mouth daily. Active omeprazole (PriLOSEC) [address] capsule Take 1 capsule (20 mg total) by mouth daily. Active multivitamin with folic acid (ONE DAILY) 400 mcg Tab tablet Take 1 tablet by mouth daily. Active lamoTRIgine (LaMICtal) 100 MG tablet Take 1 tablet (100 mg total) by mouth every morning & every evening. Active HYDROmorphone (DILAUDID) 2 MG tablet Take 1-2 tablets (2-4 mg total) by mouth every 4 hours as needed for pain. Active estradioL (CLIMARA) 0.025 mg/[address] 1 patch on the skin every evening. Active cholecalciferol 1,000 unit tablet Take 1 tablet (1,000 Units total) by mouth daily. Active calcium citrate/vitamin D3 (CALCIUM CITRATE + D ORAL) Take 1 tablet by mouth daily. calcium citrate-vitamin D3 (Calcium Citrate + D) 316mg-630unit Tablet Active bisacodyl (FLEET LAXATIVE, BISACODYL,) 5 mg EC tablet Take 2 tablets (10 mg total) by mouth daily as needed for constipation. Active aspirin 325 MG tablet Take 1 tablet (325 mg total) by mouth every morning & every evening. Active acetaminophen (TYLENOL) 325 MG tablet Take 3 tablets (975 mg total) by mouth every 8 hours as needed for pain. Active ARIPiprazole (ABILIFY) 5 MG tablet Take 1 tablet (5 mg total) by mouth daily. Active Social History Tobacco Use Types Packs/Day Years Used Date Smoking Tobacco: Former Comments Unknown Sex and Gender Information Value Date Recorded Sex Assigned at Not on file Legal Sex Female 5:23 PM EST Gender Identity Not on file Sexual Orientation Not on file Last Filed Vital Signs Vital Sign Reading Time Taken Comments Blood Pressure - - Pulse - - Temperature - - Respiratory Rate - - Oxygen Saturation - - Inhaled Oxygen Concentration - - Weight 71.7 kg (158 lb) 10/25/2018 12:00 PM EST Height 162.6 cm (5' 4 ) 10/25/2018 12:00 PM EST Body Mass Index 27.12 10/25/2018 12:00 PM EST Plan of Treatment Health Maintenance Due Date Last Done Comments Blood Pressure 1955 Lipid Panel 1955 Depression Screening 1967 Hepatitis C Screening 1973 DTaP,Tdap,and Td Vaccines (1 - Tdap) [address] Colonography 2000 Colonoscopy 2000 Colorectal Cancer Screening 2000 FIT 2000 FOBT 2000 Multitarget Stool DNA (Cologuard) 2000 Sigmoidoscopy 2000 Pneumococcal Vaccine: 50+ Ye ars (1 of 1 - PCV) 2005 Zoster Vaccine (1 of 2) 2005 Osteoporosis Screening 2020 COVID-19 Vaccine ( - 2024-2 6 season) 2025 Influenza Vaccine (#1) 2025 Meningococcal B Vaccines Aged Out No longer eligible based on patient's age to complete this topic Meningococcal Vaccines Aged Out No lo nger eligible based on patient's age to complete this topic
--- OUTSIDE RECORDS SUMMARY | 2025-08-19 08:00 | XMS_ITS | Encounter Summary ---
Author Organization [facility] Address [address] [facility] [address] [place] [address] Phone Care Team Providers Care Patient Experience Coordinator Name Role Phone Keiry Au MACHINE HOOP MAKER Unavailable Keiry Au MACHINE HOOP MAKER Unavailable PheKeiry freitas MACHINE HOOP MAKER Primary Care Provider Reason for Visit * Reason Comments Medication Refill Encounter Details Date Type Department Care Team (Late st Contact Info) Description 06/07/2025 Refill [facility] [address] [place] [address] Carla Mercado MD, MPH [address] [facility], [address] [place] [address] [email or web address] Medication Refill Social History Tobacco Use Types [...] 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 Date 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 Not on file Not [...] Description 11/20/2025 11:10 AM EDT Office Visit [facility] [address] [place] [address] [place] [address] Carla Mercado MD, MPH [address] [place] [address], [address] [place] [address] [email or web address] 12/27/2025 1:00 PM EDT Office Visit [facility] Neurology [facility] [address] [place] [address] [place] [address] Arnaldo Mcdonough MD [address] [place] [address], 2nd [place] [address] [email or web address] Scheduled Orders Name Type Priority Associated Diagnoses Orde r Schedule CBC and differential Lab Routine Seropositive rheumatoid arthritis Expected: 06/08/2025, Expires: 06/08/2026 documented as of this encounter Visit Diagnoses Diagnosis Seropositive rheumatoid arthritis documented in this encounter Additional Health Concerns Assessment Noted Time PHQ-2 Depression Total Score: 2 10/06/19 1:26 PM EST documented as of this encounter Care Teams Patient Experience Coordinator Relationship Specialty Start Date End Date Keiry Au CNP [address] [place] [address] [place] [phone] PCP - General Nurse Practitioner 03/14/25 Keiry Au CNP [address] [place] [address] [place] [address] [email or web address] Primary Care Physician 06/17/17 Keiry Au CNP [address] [place] [address] [address] [place] [address] [email or web address] Insurance Assigned Provider 12/03/24 documented as of this encounter Additional Source Comments The information contained in this document represents components of the legal health record. It is not the complete legal health record.[facility]
--- OUTSIDE RECORDS SUMMARY | 2025-08-19 08:00 | XMS_ITS | Encounter Summary ---
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 Not on file Not on file documented as of this encounter Plan of Treatment Upcoming Encounters Date Type Department Care Team (Late st Contact Info) Description 11/20/2025 11:10 AM EDT Office Visit [facility] Rheumatology [facility] [address] [place] [address] [place] [address] Carla Mercado MD, MPH [address] [place] [address], [facility] [address] [place] [address] 12/27/2025 1:00 PM EDT Office Visit [facility] Neurology [facility] [address] [place] [address] [place] [address] Arnaldo Mcdonough MD [address] [place] [address], 2nd [place] [address] documented as of this encounter Visit Diagnoses Not on filedocumented in this encounter Additional Health Concerns Assessment Noted Time PHQ-2 Depression Total Score: 2 10/06/19 25 1:26 PM EST documented as of this encounter Care Teams Extruding Press Adjuster Relationship Specialty Start Date End Date Pheasant, Keiry Ana Laura, CERTIFIED ADAPTIVE PHYSICAL EDUCATOR 14 [facility] [address] [place] [address] [email or web address] PCP - General Nurse Practitioner 03/14/25 Keiry Au CNP [address] [place] [address] [place] [address] Primary Care Physician 06/17/17 Keiry Au CNP [address] [place] [address] [place] [address] [email or web address] Insurance Assigned Provider 12/03/24 documented as of this encounter Additional Source Comments The information contained in this document represents components of the legal health record. It is not the complete legal health record.[facility]
--- OUTSIDE RECORDS SUMMARY | 2025-08-19 08:00 | XMS_ITS | Encounter Summary ---
Author Organization [facility] Address [address] [facility] [address] [place] [address] Phone Care Team Providers Care Candy Dipper Hand Name Role Phone Keiry Au UNEMPLOYMENT BENEFITS CLAIMS TAKER Unavailable Keiry Au UNEMPLOYMENT BENEFITS CLAIMS TAKER Unavailable [phone] Keiry Au UNEMPLOYMENT BENEFITS CLAIMS TAKER Primary Care Provider Encounter Details Date Type Department Care Team (Late st Contact Info) Description 04/02/2025 Ancillary Orders [facility] Neurology [facility] 22 [place] [address] Keiry Au, KAY 14 [facility] [address] [place] [phone] [email or web address] Amaurosis fugax (Primary Dx) Social History Tobacco [...] 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 Date 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 Not on file Not on file documented as of this encounter Plan of Treatment Upcoming Encounters Date Type Department Care Team (Late st Contact Info) Description 11/20/2025 11:10 AM EDT Office Visit [facility]ology [facility] [address] [place] [address] [place] [address] Carla Mercado MD, MPH [address] [place] [address], [facility] [address] [place] [address] 12/27/2025 1:00 PM EDT Office Visit [facility] [address] [place] [address] [place] [address] Arnaldo Mcdonough MD [address] [place] [address], 2nd [place] [address] documented as of this encounter Results * [...] documented as of this encounter Care Teams Candy Dipper Hand Relationship Specialty Start Date End Date Keiry Au CNP [address] [place] [address] [email or web address] PCP - General Nurse Practitioner 03/14/25 Keiry Au CNP [address] [place] [address] [place] [address] [email or web address] Primary Care Physician 06/17/17 Keiry Au CNP [address] [place] [address] [place] [address] [email or web address] Insurance Assigned Provider 12/03/24 documented as of this encounter Additional Source Comments The information contained in this document represents components of the legal health record. It is not the complete legal health record.[facility]
--- OUTSIDE RECORDS SUMMARY | 2025-08-19 08:00 | XMS_ITS | Encounter Summary ---
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 Not on file Not on file documented as of this encounter Plan of Treatment Upcoming Encounters Date Type Department Care Team (Late st Contact Info) Description 11/20/2025 11:10 AM EDT Office Visit [facility] Rhe[facility]ology [facility] [address] [place] [address] Carla Mercado MD, MPH [address] [place] [address], [facility] 203 [place] [address] [email or web address] 12/27/2025 1:00 PM EDT Office Visit [facility] Neurology [facility] [address] [place] [address] Arnaldo Mcdonough MD [address] [place] [address], 2nd [place] [address] [email or web address] documented as of this encounter Visit Diagnoses Not on filedocumented in this encounter Additional Health Concerns Assessment Noted Time PHQ-2 Depression Total Score: 2 10/06/19 25 1:26 PM EST documented as of this encounter Care Teams Train Master Relationship Specialty Start Date End Date Keiry Au CNP 14 [facility] [address] [place] [address] [email or web address] PCP - General Nurse Practitioner 03/14/25 Keiry Au CNP [address] [place] [address] [place] [address] [email or web address] Primary Care Physician 06/17/17 Keiry Au CNP 14 [facility] [address] [place] [address] [email or web address] Insurance Assigned Provider 12/03/24 documented as of this encounter Additional Source Comments The information contained in this document represents components of the legal health record. It is not the complete legal health record.[facility]
--- OUTSIDE RECORDS SUMMARY | 2025-08-19 08:00 | XMS_ITS | Encounter Summary ---
Author Organization [facility] Address [address] [place] [address] Phone Care Team Providers Care Truck Driver Name Role Phone Keiry Au CNP Unavailable Keiry Au CNP Primary Care Provider Keiry Au CNP Unavailable Chad Esposito DO Primary Care Provider [phone] Keiry Au CNP Primary Care Provider Encounter Details Date Type Department Care Team (Late st Contact Info) Description 02/13/2025 Ancillary Orders [facility], X-Ray - [facility] [address] [place] [address] Chad Esposito, DO [address] [place] [address] [email or web address] Hip pain, bilateral (Primary Dx) Social History [...] 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 Not on file Not on file documented as of this encounter Plan of Treatment Upcoming Encounters Date Type Department Care Team (Late st Contact Info) Description 11/20/2025 11:10 AM EDT Office Visit [facility] Rheumatology Clinic [address] [place] [address] [place] [address] Carla Mercado MD, MPH [address] [place] [address], [facility] 203 [place] [address] 12/27/2025 1:00 PM EDT Office Visit [facility] Neurology Clinic [address] [place] [address] [place] [address] Arnaldo Mcdonough MD [address] [place] [address], 2nd [place] [address] [email or web address] documented as of this encounter Results * [...] clinician's provided indication for this examination in [facility]: Pain COMPARISON: Pelvis/right hip radiographs 10/13/2024 Procedure Note So Solitario MD - 02/14/2025 XR HIPS 2+ VW EA BILAT PLUS PELVIS 02/13/2025 3:44 PM Referring clinician's provided indication for this examination in [facility]:Pain COMPARISON: Pelvis/right hip radiographs 10/13/2024 IMPRESSION: FINDINGS/IMPRESSION: [...] documented as of this encounter Care Teams Truck Driver Relationship Specialty Start Date End Date Keiry Au CNP [address] [place] [address] PCP - General Internal Medicine 02/12/23 03/04/25 Chad Esposito DO [address] [place] [phone] [email or web address] PCP - General Internal Medicine 03/05/25 03/13/25 Keiry Au CNP [address] [place] [address] PCP - General Nurse Practitioner 03/14/25 Keiry Au CNP [address] [place] [address] Primary Care Physician 06/17/17 Keiry Au CNP [address] [place] [address] Insurance Assigned Provider 12/03/24 documented as of this encounter Additional Source Comments The information contained in this document represents components of the legal health record. It is not the complete legal health record.[facility]
--- OUTSIDE RECORDS SUMMARY | 2025-08-19 08:00 | XMS_ITS | Encounter Summary ---
Author Organization [facility] Address [address] [address] Phone Care Team Providers Care Blunger Name Role Phone Keiry Au LEGAL RECORDS MANAGER Unavailable [phone] Keiry Au LEGAL RECORDS MANAGER Unavailable Keiry Au LEGAL RECORDS MANAGER Primary Care Provider Reason for Visit * Reason Onset Date Comments Red Call SOB 05/30/2025 Encounter Details Date Type Department Care Team ([facility] st Contact Info) Description 05/30/2025 Telephone [facility] 14 [facility] [address] [place] [address] Keiry Au, KAY 14 [facility] [address] [place] [phone] [email or web address] Red Call SOB Social History Tobacco Use [...] 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 Not on file Not [...] Description 11/20/2025 11:10 AM EDT Office Visit [facility] [address] [place] [address] [place] [address] Carla Mercado MD, MPH [address] [place] [address], [address] [place] [address] 12/27/2025 1:00 PM EDT Office Visit [facility] Neurology [facility] [address] [place] [address] [place] [address] Arnaldo Mcdonough MD [address] [place] [address], 2nd [place] [address] documented as of this encounter Visit Diagnoses Not on filedocumented in this encounter Additional Health Concerns Assessment Noted Time PHQ-2 Depression Total Score: 2 10/06/19 25 1:26 PM EST documented as of this encounter Care Teams Blunger Relationship Specialty Start Date End Date Keiry Au CNP 14 [facility] [address] [place] [address] [email or web address] PCP - General Nurse Practitioner 03/14/25 Keiry Au CNP [address] [place] [address] [email or web address] Primary Care Physician 06/17/17 Keiry Au CNP [address] [address] Insurance Assigned Provider 12/03/24 documented as of this encounter Additional Source Comments The information contained in this document represents components of the legal health record. It is not the complete legal health record.[facility]
--- OUTSIDE RECORDS SUMMARY | 2025-08-19 08:00 | XMS_ITS | Encounter Summary ---
Author Organization [facility] Address [address] [address] Phone Care Team Providers Care Electrical Logging Operator Name Role Phone Keiry Au PEDIATRIC PSYCHIATRIST Unavailable [phone] Keiry Au PEDIATRIC PSYCHIATRIST Unavailable Keiry Au PEDIATRIC PSYCHIATRIST Primary Care Provider Encounter Details Date Type Department Care Team (Late st Contact Info) Description 04/09/2025 Telephone [facility] Rheumatology Clinic 22 [place] [address] Carla Mercado MD, MPH 22 [facility], [address] [place] [address] [email or web address] Social History Tobacco Use Types Packs/Day Years [...] 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 Date 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 Not on file Not on file documented as of this encounter Plan of Treatment Upcoming Encounters Date Type Department Care Team (Late st Contact Info) Description 11/20/2025 11:10 AM EDT Office Visit [facility] Rheumatology Clinic [address] [place] [address] [place] [address] Carla Mercado MD, MPH [address] [place] [address], [address] [place] [address] 12/27/2025 1:00 PM EDT Office Visit [facility] Neurology Clinic [address] [place] [address] [place] [address] Arnaldo Mcdonough MD [address] [place] [address], 2nd [place] [address] documented as of this encounter Visit Diagnoses Not on filedocumented in this encounter Additional Health Concerns Assessment Noted Time PHQ-2 Depression Total Score: 2 10/06/19 25 1:26 PM EST documented as of this encounter Care Teams Electrical Logging Operator Relationship Specialty Start Date End Date Keiry Au CNP [address] [place] [address] [place] [address] [email or web address] PCP - General Nurse Practitioner 03/14/25 Keiry Au CNP [address] [place] [address] [place] [address] [email or web address] Primary Care Physician 06/17/17 Keiry Au CNP [address] [address] [email or web address] Insurance Assigned Provider 12/03/24 documented as of this encounter Additional Source Comments The information contained in this document represents components of the legal health record. It is not the complete legal health record.[facility]
--- OUTSIDE RECORDS SUMMARY | 2025-08-19 08:00 | XMS_ITS | Encounter Summary ---
Author Organization [facility] Address [address] [place], [place] [id number] Phone Care Team Providers Care Geologic Technician Name Role Phone Keiry Au CNP Unavailable [...] CT Foot (Right) Dionisio Su MD 0 [place] [address] Phone: tel: fax: [email or web address] Referral ID Status Reason Start Date Expiration Date Visits Re quested Visits Authorized [id number] Closed 12/16/2022 12/16/2023 1 1 Encounter Details Date Type Department Care Team (Late Contact Info) Description 12/16/2022 Transcribe Orders Virtual Department 30 [place] [address] Dionisio Su MD [address] [phone] 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 Rheumatology Clinic [address] [place] [address] [place] [address] Carla Mercado MD, MPH [address] [place] [address], [address] [place] [address] 12/27/2025 1:00 PM EDT Office Visit [facility] Neurology Clinic [address] [place] [address] [place] [address] Arnaldo Mcdonough MD [address] [place] [address], 2nd [place] [address] [phone] (work) [email or web address] documented as of this encounter Results * [...] osseous bridging. Intactappearing hardware. Dionisio Su MD IMG CT EXTREMITY Final [...] documented as of this encounter Care Teams Geologic Technician Relationship Specialty Start Date End Date Keiry Au CNP [address] [place] [address] PCP - General Internal Medicine 05/29/21 02/11/23 Keiry Au CNP [address] [place] [address] PCP - General Internal Medicine 02/12/23 03/04/25 Chad Esposito DO [address] [place] [phone] [email or web address] PCP - General Internal Medicine 03/05/25 03/13/25 Keiry Au CNP [address] [place] [address] PCP - General Nurse Practitioner 03/14/25 Keiry Au CNP [address] [place] [address] Primary Care Physician 06/17/17 Laurie Eaton MD [address] [place] [address] [email or web address] Insurance Assigned Provider 12/04/23 12/03/24 Keiry Au, KAY [address] [place] [address] [address] [place] [address] [email or web address] Insurance Assigned Provider 12/03/24 documented as of this encounter Additional Source Comments The information contained in this document represents components of the legal health record. It is not the complete legal health record.[facility]
--- OUTSIDE RECORDS SUMMARY | 2025-08-19 08:00 | XMS_ITS | Encounter Summary ---
Author Organization [facility] Address [address] [place] [address] Phone Care Team Providers Care Eyeglass Lens Cutter Name Role Phone Keiry Au CNP Unavailable [phone] Keiry Au CNP Primary Care Provider Laurie Eaton MD Unavailable [phone] Keiry Au CNP Primary Care Provider Keiry Au CNP Unavailable Chad Esposito DO Primary Care Provider Keiry Au CNP Primary Care Provider Encounter Details Date Type Department Care Team (Late st Contact Info) Description 09/18/2021 Procedure Pass [facility] Endoscopy Admitting Dept Virtual Department 30 [place] [address] Social History Tobacco Use Types Packs/Day Years [...] 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 Not on file Not on file documented as of this encounter Plan of Treatment Upcoming Encounters Date Type Department Care Team (Late st Contact Info) Description 11/20/2025 11:10 AM EDT Office Visit [facility] Rheumatology Clinic [address] [place] [address] Carla Mercado MD, MPH [address] [place] [address], [address] [place] [address] 12/27/2025 1:00 PM EDT Office Visit [facility] Neurology [address] [place] [address] Arnaldo Mcdonough MD [address] [place] [address], 2nd [place] [address] [email or web address] documented as of this encounter Visit Diagnoses Not on filedocumented in this encounter Additional Health Concerns Infection Onset Date Last Indicated Resolved Time CoV-Risk 05/19/2024 05/19/2024 05/30/2024 1:22 AM EDT CoV-Risk 08/29/2024 08/29/2024 09/09/2024 1:22 AM EST Assessment Noted Time PHQ-2 Depression Total Score: 0 10/05/19 9:38 AM EST documented as of this encounter Care Teams Eyeglass Lens Cutter Relationship Specialty Start Date End Date Keiry Au CNP [address] [place] [address] PCP - General Internal Medicine 05/29/21 02/11/23 Keiry Au CNP [address] [place] [address] PCP - General Internal Medicine 02/12/23 03/04/25 Chad Esposito DO [address] [place] [phone] [email or web address] PCP - General Internal Medicine 03/05/25 03/13/25 Keiry Au CNP [address] [place] [address] PCP - General Nurse Practitioner 03/14/25 Keiry Au CNP [address] [place] [address] Primary Care Physician 06/17/17 Laurie Eaton MD [address] [place] [address] Insurance Assigned Provider 12/04/23 12/03/24 Keiry Au CNP [address] [place] [phone] Insurance Assigned Provider 12/03/24 documented as of this encounter Additional Source Comments The information contained in this document represents components of the legal health record. It is not the complete legal health record.[facility]
--- OUTSIDE RECORDS SUMMARY | 2025-08-19 08:00 | XMS_ITS | Encounter Summary ---
Author Organization [facility] Address 399 [facility] [address] [place] [address] Phone Care Team Providers Care Spray Applicator Name Role Phone Smiley Saenz MD Unavailable [phone] Esmer HunterSW Unavailable Unavailab le Keiry Au CNP Unavailable [phone] Laurie Eaton MD Unavailable [phone] Charlie Aguilar MD Unavailable Laurie Eaton MD Primary Care Provider [phone] Keiry Au CNP Primary Care Provider Laurie Eaton MD Unavailable [phone] Keiry Au CNP Primary Care Provider Keiry Au CNP Unavailable [phone] Chad Esposito DO Primary Care Provider Keiry Au CNP Primary Care Provider Encounter Details Date Type Department Care Team (Late st Contact Info) Description 06/24/2017 Ancillary Orders [facility] 14 [facility] [address] [place] [address] Laurie Eaton MD [address] [place] [address] [address] [place] [address] [email or web address] Visit for screening mammogram Social History Tobacco [...] Description 11/20/2025 11:10 AM EDT Office Visit [facility] Rhe[facility]ology [facility] [address] [place] [address] [place] [address] Carla Mercado MD, MPH [address] [place] [address], [address] [place] [address] [email or web address] 12/27/2025 1:00 PM EDT Office Visit [facility] Neurology Clinic [address] [place] [address] [place] [address] Arnaldo Mcdonough MD [address] [place] [address], 2nd [place] [address] [email or web address] documented as of this encounter Results * [...] lowers the sensitivity of mammography. POS - [id number] Narrative 08/06/2017 7:31 AM EST FINDINGS: Bilateral [...] whichlowers the sensitivity of mammography. POS - [id number] Laurie Eaton MD IM MG EXAMS Final Result documented in this encounter Visit Diagnoses Diagnosis Visit for screening mammogram Visit for screening mammogram documented in this encounter Additional Health Concerns Infection Onset Date Last Indicated Resolved Time CoV-Risk 05/19/2024 05/19/2024 05/30/2024 1:22 AM EDT CoV-Risk 08/29/2024 08/29/2024 09/09/2024 1:22 AM EST documented as of this encounter Care Teams Spray Applicator Relationship Specialty Start Date End Date Laurie Eaton MD [address] [place] [address] [place] [address] PCP - General Internal Medicine 06/24/17 05/28/21 Keiry Au CNP [address] [place] [address] [place] [address] PCP - General Internal Medicine 05/29/21 02/11/23 Keiry Au, KAY [address] [place] [address] PCP - General Internal Medicine 02/12/23 03/04/25 Chad Esposito DO [address] [place] [phone] [email or web address] PCP - General Internal Medicine 03/05/25 03/13/25 Keiry Au CNP [address] [place] [address] PCP - General Nurse Practitioner 03/14/25 Smiley Saenz MD [address] [place] [address] [email or web address] Historical LMR Provider 01/10/15 05/28/21 Esmer Hunter LICSW Historical LMR Provider 06/17/17 08/15/17 Keiry Au, KAY [address] [place] [address] Primary Care Physician 06/17/17 Laurie Eaton MD [address] [place] [address] [place] [address] [email or web address] Historical LMR Provider 06/17/17 1 Charlie Aguilar MD [address] [place] [address] Historical LMR Provider 06/17/17 Laurie Eaton MD [address] [place] [address] [place] [address] [email or web address] Insurance Assigned Provider 12/04/23 12/03/24 Keiry Au CNP [address] [place] [address] [place] [address] [email or web address] Insurance Assigned Provider 12/03/24 documented as of this encounter Additional Source Comments The information contained in this document represents components of the legal health record. It is not the complete legal health record.[facility]
--- OUTSIDE RECORDS SUMMARY | 2025-08-19 08:00 | XMS_ITS | Encounter Summary ---
Author Organization [facility] Address [address] [place] [address] Phone Care Team Providers Care Content Coordinator Name Role Phone Keiry Au CNP Unavailable Keiry Au CNP Primary Care Provider Laurie Eaton MD Unavailable [phone] Keiry Au CNP Primary Care Provider Keiry Au CNP Unavailable Chad Esposito DO Primary Care Provider Keiry Au CNP Primary Care Provider Encounter Details Date Type Department Care Team (Late st Contact Info) Description 11/05/2022 Procedure Pass [facility], [address] [address] Social History Tobacco Use Types Packs/Day Years [...] 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 on file Not [...] Description 11/20/2025 11:10 AM EDT Office Visit [facility] Rheumatology Clinic [address] [place] [address] Carla Mercado MD, MPH [address] [place] [address], [address] [place] [address] [email or web address] 12/27/2025 1:00 PM EDT Office Visit [facility] Neurology Clinic [address] [place] [address] Arnaldo Mcdonough MD [address] [place] [address], 2nd [place] [address] [email or web address] documented as of this encounter Visit Diagnoses Not on filedocumented in this encounter Additional Health Concerns Infection Onset Date Last Indicated Resolved Time CoV-Risk 05/19/2024 05/19/2024 05/30/2024 1:22 AM EDT CoV-Risk 08/29/2024 08/29/2024 09/09/2024 1:22 AM EST Assessment Noted Time PHQ-2 Depression Total Score: 0 10/11/19 10:22 AM EST documented as of this encounter Care Teams Content Coordinator Relationship Specialty Start Date End Date Keiry Au CNP [address] [place] [address] PCP - General Internal Medicine 05/29/21 02/11/23 Keiry Au CNP [address] [place] [address] PCP - General Internal Medicine 02/12/23 03/04/25 Chad Esposito DO [address] [place] [phone] [email or web address] PCP - General Internal Medicine 03/05/25 03/13/25 Keiry Au CNP [address] [place] [address] PCP - General Nurse Practitioner 03/14/25 Keiry Au CNP [address] [place] [address] Primary Care Physician 06/17/17 Laurie Eaton MD [address] [place] [address] Insurance Assigned Provider 12/04/23 12/03/24 Keiry Au CNP [address] [place] [address] Insurance Assigned Provider 12/03/24 documented as of this encounter Additional Source Comments The information contained in this document represents components of the legal health record. It is not the complete legal health record.[facility]
--- OUTSIDE RECORDS SUMMARY | 2025-08-19 08:00 | XMS_ITS | Encounter Summary ---
Author Organization [facility] Address 399 [facility] [address] [place] [address] Phone Care Team Providers Care Global Consumer Sector Vice President Name Role Phone Keiry Au CNP Unavailable Keiry Au APPAREL CUTTER Unavailable Keiry Au APPAREL CUTTER Primary Care Provider Reason for Visit * Reason Onset Date Comments Injections 05/28/2025 Encounter Details Date Type Department Care Team (Late st Contact Info) Description 05/28/2025 Telephone [facility] Rheumatology Clinic 22 [place] [address] Carla Mercado MD, MPH 22 [facility], [address] [place] [address] [email or web address] Injections Social History Tobacco Use Types Packs/Day [...] 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 Please contact and advise. Central Support [employer] (Please do not reply to this user; this inbox is not monitored.) Thank you. documented in this encounter Plan of Treatment Upcoming Encounters Date Type Department Care Team (Late st Contact Info) Description 11/20/2025 11:10 AM EDT Office Visit [facility] Rheumatology Clinic [address] [place] [address] [place] [address] Carla Mercado MD, MPH [address] [place] [address], [facility] 203 [place] [address] 12/27/2025 1:00 PM EDT Office Visit [facility] Neurology Clinic [address] [place] [address] [place] [address] Arnaldo Mcdonough MD [address] [place] [address], 2nd [place] [address] [email or web address] documented as of this encounter Visit Diagnoses Not on filedocumented in this encounter Additional Health Concerns Assessment Noted Time PHQ-2 Depression Total Score: 2 10/06/19 25 1:26 PM EST documented as of this encounter Care Teams Global Consumer Sector Vice President Relationship Specialty Start Date End Date Keiry Au CNP [address] [place] [address] [place] [address] [email or web address] PCP - General Nurse Practitioner 03/14/25 Keiry Au CNP [address] [place] [address] [place] [address] Primary Care Physician 06/17/17 Keiry Au CNP [address] [place] [address] [email or web address] Insurance Assigned Provider 12/03/24 documented as of this encounter Additional Source Comments The information contained in this document represents components of the legal health record. It is not the complete legal health record.[facility]
--- OUTSIDE RECORDS SUMMARY | 2025-08-19 08:00 | XMS_ITS | Encounter Summary ---
Author Organization [facility] Address [address] [place] [address] Phone Care Team Providers Care Clinical Reimbursement Specialist Name Role Phone Keiry Au CNP Unavailable [phone] Keiry Au CNP Primary Care Provider Keiry Au GAS EXAMINER Unavailable Chad Esposito DO Primary Care Provider [phone] Keiry Au CNP Primary Care Provider Encounter Details Date Type Department Care Team (Late st Contact Info) Description 03/01/2025 Procedure Pass [facility], [address] [address] Social History Tobacco Use Types Packs/Day Years [...] 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 Date 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 Not on file Not on file documented as of this encounter Plan of Treatment Upcoming Encounters Date Type Department Care Team (Late st Contact Info) Description 11/20/2025 11:10 AM EDT Office Visit [facility] Rhe[facility]ology [facility] [address] [place] [address] Carla Mercado MD, MPH [address] [place] [address], [facility] [address] [place] [address] 12/27/2025 1:00 PM EDT Office Visit [facility] Neurology Clinic [address] [place] [address] [place] [address] Arnaldo Mcdonough MD [address] [place] [address], 2nd [place] [address] documented as of this encounter Visit Diagnoses Not on filedocumented in this encounter Additional Health Concerns Assessment Noted Time PHQ-2 Depression Total Score: 2 10/06/19 25 1:26 PM EST documented as of this encounter Care Teams Clinical Reimbursement Specialist Relationship Specialty Start Date End Date Keiry Au CNP [address] [place] [address] [place] [address] PCP - General Internal Medicine 02/12/23 03/04/25 Chad Esposito DO [address] [place] [phone] [email or web address] PCP - General Internal Medicine 03/05/25 03/13/25 Keiry Au CNP [address] [place] [address] PCP - General Nurse Practitioner 03/14/25 Keiry Au CNP [address] [place] [address] Primary Care Physician 06/17/17 Keiry Au CNP [address] [place] [phone] Insurance Assigned Provider 12/03/24 documented as of this encounter Additional Source Comments The information contained in this document represents components of the legal health record. It is not the complete legal health record.[facility]
--- OUTSIDE RECORDS SUMMARY | 2025-08-19 08:00 | XMS_ITS | Encounter Summary ---
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 Not on file Not on file documented as of this encounter Plan of Treatment Upcoming Encounters Date Type Department Care Team (Late st Contact Info) Description 11/20/2025 11:10 AM EDT Office Visit [facility] Rheumatology Clinic [address] [place] [address] Carla Mercado MD, MPH [address] [place] [address], [facility] [address] [place] [address] 12/27/2025 1:00 PM EDT Office Visit [facility] Neurology Clinic [address] [place] [address] [place] [address] Arnaldo Mcdonough MD [address] [place] [address], 2nd [place] [address] documented as of this encounter Visit Diagnoses Not on filedocumented in this encounter Additional Health Concerns Assessment Noted Time PHQ-2 Depression Total Score: 2 10/06/19 25 1:26 PM EST documented as of this encounter Care Teams Music Arranger Relationship Specialty Start Date End Date Keiry Au CNP [address] [place] [address] [place] [address] PCP - General Internal Medicine 02/12/23 03/04/25 Chad Esposito DO [address] [place] [address] [phone] [email or web address] PCP - General Internal Medicine 03/05/25 03/13/25 Keiry Au CNP [address] [place] [address] PCP - General Nurse Practitioner 03/14/25 Keiry Au CNP [address] [place] [address] Primary Care Physician 06/17/17 Keiry Au CNP [address] [place] [address] Insurance Assigned Provider 12/03/24 documented as of this encounter Additional Source Comments The information contained in this document represents components of the legal health record. It is not the complete legal health record.[facility]
--- OUTSIDE RECORDS SUMMARY | 2025-08-19 08:00 | XMS_ITS | Encounter Summary ---
Author Organization [facility] Address [address] [place] [address] Phone Care Team Providers Care Cardboard Inserter Name Role Phone Keiry Au CNP Unavailable Keiry Au CNP Primary Care Provider Laurie Eaton MD Unavailable Keiry Au CNP Primary Care Provider Keiry Au CNP Unavailable Chad Esposito DO Primary Care Provider Keiry Au CNP Primary Care Provider Encounter Details Date Type Department Care Team (Late st Contact Info) Description 12/16/2022 Procedure Pass [facility], Ct Scan - [facility] [address] [place] [address] Social History Tobacco Use Types Packs/Day Years [...] 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 Not on file Not on file documented as of this encounter Plan of Treatment Upcoming Encounters Date Type Department Care Team (Late st Contact Info) Description 11/20/2025 11:10 AM EDT Office Visit [facility] Rheumatology Clinic [address] [place] [address] Carla Mercado MD, MPH [address] [place] [address], [address] [place] [address] 12/27/2025 1:00 PM EDT Office Visit [facility] Neurology Clinic [address] [place] [address] [place] [address] Arnaldo Mcdonough MD [address] [place] [address], 2nd [place] [address] [email or web address] documented as of this encounter Visit Diagnoses Not on filedocumented in this encounter Additional Health Concerns Infection Onset Date Last Indicated Resolved Time CoV-Risk 05/19/2024 05/19/2024 05/30/2024 1:22 AM EDT CoV-Risk 08/29/2024 08/29/2024 09/09/2024 1:22 AM EST Assessment Noted Time PHQ-2 Depression Total Score: 0 10/11/19 10:22 AM EST documented as of this encounter Care Teams Cardboard Inserter Relationship Specialty Start Date End Date Keiry Au CNP [address] [place] [address] PCP - General Internal Medicine 05/29/21 02/11/23 Keiry Au CNP [address] [place] [address] [email or web address] PCP - General Internal Medicine 02/12/23 03/04/25 Chad Esposito DO [address] [place] [address] [phone] [email or web address] PCP - General Internal Medicine 03/05/25 03/13/25 Keiry Au CNP [address] [place] [address] [email or web address] PCP - General Nurse Practitioner 03/14/25 Keiry Au CNP [address] [place] [address] Primary Care Physician 06/17/17 Laurie Eaton MD [address] [place] [address] Insurance Assigned Provider 12/04/23 12/03/24 Keiry Au CNP [address] [place] [address] Insurance Assigned Provider 12/03/24 documented as of this encounter Additional Source Comments The information contained in this document represents components of the legal health record. It is not the complete legal health record.[facility]
--- OUTSIDE RECORDS SUMMARY | 2025-08-19 08:00 | XMS_ITS | Encounter Summary ---
Author Organization [facility] Address [address] [facility] [address] [place] [address] Phone Care Team Providers Care Molding Line Operator Name Role Phone Keiry Au CNP Unavailable [phone] Laurie Eaton MD Unavailable Keiry Au CNP Primary Care Provider Keiry Au CNP Unavailable Chad Esposito DO Primary Care Provider Keiry Au CNP Primary Care Provider Encounter Details Date Type Department Care Team ([facility] st Contact Info) Description 09/15/2023 Ancillary Orders [facility] Primary Care Clinic [address] [facility] [address] [place] [address] Keiry Au CNP [address] [facility] [address] [place] [address] [email or web address] Abnormal finding on mammography (Primary Dx) Social History Tobacco Use Types [...] 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 Not on file Not on file documented as of this encounter Plan of Treatment Upcoming Encounters Date Type Department Care Team (Late st Contact Info) Description 11/20/2025 11:10 AM EDT Office Visit [facility] Rheumatology Clinic [address] [place] [address] [place] [address] Carla Mercado MD, MPH [address] [place] [address], [address] [place] [address] 12/27/2025 1:00 PM EDT Office Visit [facility] Neurology Clinic [address] [place] [address] [place] [address] Arnaldo Mcdonough MD [address] [place] [address], 2nd [place] [address] [email or web address] documented as of this encounter Results * BI US BREAST LIMITED (RIGHT) (11/01/2023 2:02 PM EST) Anatomical Region Laterality Modality Breast Right, Breast Bilateral Right U ltrasound 11/01/2023 1:21 PM EST Impressions 11/01/2023 2:11 PM EST Benign findings on the right. No mammographic evidence of malignancy in the right breast. BI-RADS 2 BENIGN Results and recommendations were communicated to the patient at time of examination. Narrative 11/01/2023 2:11 PM EST BI MAMMOGRAM DIAGNOSTIC WITH TOMOSYNTHESIS WITH CAD (RIGHT), BI US BREAST LIMITED (RIGHT) Additional patient information: Asymmetry on recent screening mammogram. COMPARISON: Comparison is made with relevant prior imaging. Breast composition: There are scattered areas of fibroglandular density. FINDINGS: Right Mammogram: The round, focal asymmetry in the upper outer quadrant intended for additional evaluation does not persist. There is a round, low-density, obscured focal asymmetry in the 9:00 position, 8 cm posterior to the nipple at a posterior depth measuring 0.6 cm. Right Ultrasound: Targeted ultrasound was performed. In the 9:00 position, 4 cm from the nipple and at a posterior depth there is an oval, anechoic, circumscribed, parallel cyst measuring 0.5 cm, this is felt to correlate to the low-density asymmetry on current mammogram. Keiry Au [facility] US BREAST Final Result * BI MAMMOGRAM DIAGNOSTIC WITH TOMOSYNTHESIS WITH CAD (RIGHT) (11/01/2023 1:18 PM EST) Anatomical Region Laterality Modality Breast Right, Breast Bilateral Right M ammography 11/01/2023 1:21 PM EST Impressions 11/01/2023 2:11 PM EST Benign findings on the right. No mammographic evidence of malignancy in the right breast. BI-RADS 2 BENIGN Results and recommendations were communicated to the patient at time of examination. Narrative 11/01/2023 2:11 PM EST BI MAMMOGRAM DIAGNOSTIC WITH TOMOSYNTHESIS WITH CAD (RIGHT), BI US BREAST LIMITED (RIGHT) Additional patient information: Asymmetry on recent screening mammogram. COMPARISON: Comparison is made with relevant prior imaging. Breast composition: There are scattered areas of fibroglandular density. FINDINGS: Right Mammogram: The round, focal asymmetry in the upper outer quadrant intended for additional evaluation does not persist. There is a round, low-density, obscured focal asymmetry in the 9:00 position, 8 cm posterior to the nipple at a posterior depth measuring 0.6 cm. Right Ultrasound: Targeted ultrasound was performed. In the 9:00 position, 4 cm from the nipple and at a posterior depth there is an oval, anechoic, circumscribed, parallel cyst measuring 0.5 cm, this is felt to correlate to the low-density asymmetry on current mammogram. us Keiry Au CNP IMG MG EXAMS Final Result documented in this encounter Visit Diagnoses Diagnosis Abnormal finding on mammography- Primary Abnormal finding on mammography Abnormal finding on mammography documented in this encounter Additional Health Concerns Infection Onset Date Last Indicated Resolved Time CoV-Risk 05/19/2024 05/19/2024 05/30/2024 1:22 AM EDT CoV-Risk 08/29/2024 08/29/2024 09/09/2024 1:22 AM EST Assessment Noted Time PHQ-2 Depression Total Score: 0 10/11/19 10:22 AM EST documented as of this encounter Care Teams Molding Line Operator Relationship Specialty Start Date End Date Keiry Au CNP [address] [place] [address] PCP - General Internal Medicine 02/12/23 03/04/25 Chad Esposito DO [address] [place] [phone] [email or web address] PCP - General Internal Medicine 03/05/25 03/13/25 Keiry Au CNP [address] [place] [address] PCP - General Nurse Practitioner 03/14/25 Keiry Au CNP [address] [place] [address] [place] [address] [email or web address] Primary Care Physician 06/17/17 Laurie Eaton MD [address] [place] [address] [email or web address] Insurance Assigned Provider 12/04/23 12/03/24 Keiry Au CNP [address] [place] [address] [email or web address] Insurance Assigned Provider 12/03/24 documented as of this encounter Additional Source Comments The information contained in this document represents components of the legal health record. It is not the complete legal health record.[facility]
--- OUTSIDE RECORDS SUMMARY | 2025-08-19 08:00 | XMS_ITS | Encounter Summary ---
Author Organization [facility] Address [address] [place] [address] Phone Care Team Providers Care Estimating Manager Name Role Phone Keiry Au CNP Unavailable Keiry Au CNP Primary Care Provider Laurie Eaton MD Unavailable Keiry Au CNP Primary Care Provider Keiry Au CNP Unavailable Chad Esposito DO Primary Care Provider Keiry Au CNP Primary Care Provider Encounter Details Date Type Department Care Team (Late st Contact Info) Description 05/29/2022 Transcribe Orders Virtual Department [address] [place] [address] Keiry Au CNP 14 [facility] [address] [place] [address] [email or web address] Breast screening (Primary Dx) Social History Tobacco [...] 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 Date 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 Not on file Not on file documented as of this encounter Plan of Treatment Upcoming Encounters Date Type Department Care Team (Late st Contact Info) Description 11/20/2025 11:10 AM EDT Office Visit [facility] Rheumatology Clinic [address] [place] [address] [place] [address] Carla Mercado MD, MPH [address] [place] [address], [address] [place] [address] [email or web address] 12/27/2025 1:00 PM EDT Office Visit [facility] Neurology Clinic [address] [place] [address] [place] [address] Arnaldo Mcdonough MD [address] [place] [address], 2nd [place] [address] [email or web address] documented as of [...] 12 Months Recommendation: Left Mammography Screening Keiry Au [facility] IMG MG EXAMS Final Result documented [...] documented as of this encounter Care Teams Estimating Manager Relationship Specialty Start Date End Date Keiry Au CNP [address] [place] [address] PCP - General Internal Medicine 05/29/21 02/11/23 Keiry Au CNP [address] [place] [phone] PCP - General Internal Medicine 02/12/23 03/04/25 Chad Esposito DO [address] [place] [phone] [email or web address] PCP - General Internal Medicine 03/05/25 03/13/25 Keiry Au CNP [address] [place] [address] PCP - General Nurse Practitioner 03/14/25 Keiry Au CNP [address] [place] [address] Primary Care Physician 06/17/17 Laurie Eaton MD [address] [place] [phone] Insurance Assigned Provider 12/04/23 12/03/24 Keiry Au CNP [address] [place] [address] Insurance Assigned Provider 12/03/24 documented as of this encounter Additional Source Comments The information contained in this document represents components of the legal health record. It is not the complete legal health record.[facility]
--- OUTSIDE RECORDS SUMMARY | 2025-08-19 08:00 | XMS_ITS | Encounter Summary ---
Author Organization [facility] Address [address] [place] [address] Phone Care Team Providers Care Patrol Deputy Sheriff Name Role Phone Keiry Au DELINQUENCY COUNSELOR Unavailable Keiry Au DELINQUENCY COUNSELOR Unavailable Chad Esposito DO Primary Care Provider [phone] Keiry Au CNP Primary Care Provider Reason for Referral * MRI/CAT Scan - Closed Specialty Diagnoses / Procedures Referred By Contsuze t Referred To Contact Radiology Diagnoses Radiculopathy, lumbar region Procedures MRI Lumbar Spine Chad Esposito DO [address] [place] [address] Phone: tel: fax: [email or web address] Referral ID Status Reason Start Date Expiration Date Visits Re quested Visits Authorized [id number] Closed 03/06/2025 03/06/2026 1 1 Encounter Details Date Type Department Care Team (Latest Contact Info) Description 03/06/2025 Transcribe Orders [facility] Department [address] [place] [address] [phone] Chad Esposito DO [address] [place] [address] [email or web address] Radiculopathy, lumbar region (Primary Dx) Social History [...] 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 Date 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 Not on file Not on file documented as of this encounter Plan of Treatment Upcoming Encounters Date Type Department Care Team (Late st Contact Info) Description 11/20/2025 11:10 AM EDT Office Visit [facility] Rheumatology Clinic [address] [place] [address] Carla Mercado MD, MPH [address] [facility], [address] [place] [address] [email or web address] 12/27/2025 1:00 PM EDT Office Visit [facility] Neurology Clinic [address] [place] [address] Arnaldo Mcdonough MD [address] [facility], 2nd [place] [address] [email or web address] documented as of this encounter Results * MRI LUMBAR SPINE (NEURO) WITHOUT CONTRAST (03/13/2025 11:06 AM EDT) Anatomical Region Laterality Modality L-spine Magnetic Resonan ce 03/14/2025 10:3 1 AM EDT Impressions 03/14/2025 10:46 AM EDT 1. Multilevel degenerative changes as detailed above, most prominent at L2-L3, with cduv-px-tmtvudbi spinal, mild RIGHT and moderate LEFT foraminal [...] arthropathy with ligamentum flavum infolding, contributing to pwfs-pr-paccwmwy spinal, mild RIGHT and moderate LEFT foraminal stenosis. L3-L4: Mild disc bulge with gwtd-va-odrclxab facet arthropathy contributing to mild spinal enlargement [...] in T11 (likely lipid poor hemangioma) and N8vxufwwbuk bodies. Discs and Endplates: Moderate loss of disc at L2-L3 and L4-L5. Multileveldisc desiccation. Conus: Normal. Soft Tissues: No prevertebral edema. Other Findings: T2 hyperintensities in the LEFT kidney, likely cysts. Findings by level: T12-L1: No spinal or foraminal stenosis. L1-L2: Mild facet arthropathy with no significant spinal or foraminalstenosis. L2-L3: Moderate disc bulge with moderate facet arthropathy with ligamentumflavum infolding, contributing to nwnn-cl-kmiwqfeo spinal, mild RIGHT andmoderate LEFT foraminal stenosis. L3-L4: Mild disc bulge with uhfd-ie-bebhiiet facet arthropathycontributing to mild spinal enlargement of bilateral foraminal stenosis. L4-L5: Mild disc bulge with moderate facet arthropathy contributing tomild spinal and mild bilateral foraminal stenosis, worse on the RIGHT. L5-S1: Mild disc bulge with mild facet arthropathy contributing to mildbilateral foraminal stenosis. IMPRESSION: 1. Multilevel degenerative changes as detailed above, most prominent atL2-L3, with cjya-eg-bkmyeqtl spinal, mild RIGHT and moderate LEFTforaminal stenosis [...] documented as of this encounter Care Teams Patrol Deputy Sheriff Relationship Specialty Start Date End Date Chad Esposito DO [address] [place] [phone] [email or web address] PCP - General Internal Medicine 03/05/25 03/13/25 Keiry Au CNP [address] [place] [address] [place] [address] [email or web address] PCP - General Nurse Practitioner 03/14/25 Keiry Au CNP [address] [place] [address] [place] [phone] Primary Care Physician 06/17/17 Keiry Au CNP [address] [place] [address] [place] [phone] [email or web address] Insurance Assigned Provider 12/03/24 documented as of this encounter Additional Source Comments The information contained in this document represents components of the legal health record. It is not the complete legal health record.[facility]
--- OUTSIDE RECORDS SUMMARY | 2025-08-19 08:00 | XMS_ITS | Encounter Summary ---
Author Organization [facility] Address [address] [place] [address] Phone Care Team Providers Care Ribbon Sweatband Operator Name Role Phone Smiley Saenz MD Unavailable PheKeiry freitas CNP Unavailable [phone] Laurie Eaton MD Unavailable Charlie Aguilar MD Unavailable Laurie Eaton MD Primary Care Provider [phone] PheKeiry freitas CNP Primary Care Provider Laurie Eaton MD Unavailable [phone] PheKeiry freitas CNP Primary Care Provider Keiry Au CNP Unavailable [phone] Chad Esposito DO Primary Care Provider Keiry Au CNP Primary Care Provider Encounter Details Date Type Department Care Team (Late st Contact Info) Description 09/23/2020 Procedure Pass [facility] Endoscopy Admitting Dept [facility] Department [address] [place] [address] Social History Tobacco Use Types Packs/Day Years [...] 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 Not on file Not on file documented as of this encounter Plan of Treatment Upcoming Encounters Date Type Department Care Team (Late st Contact Info) Description 11/20/2025 11:10 AM EDT Office Visit [facility] Rheumatology Clinic [address] [place] [address] Carla Mercado MD, MPH [address] [place] [address], [address] [place] [address] 12/27/2025 1:00 PM EDT Office Visit [facility] Neurology Clinic [address] [place] [address] Arnaldo Mcdonough MD [address] [place] [address], 2[address] [place] [address] [email or web address] documented as of this encounter Care Teams Ribbon Sweatband Operator Relationship Specialty Start Date End Date Laurie Eaton MD [address] [place] [address] [place] [address] [email or web address] PCP - General Internal Medicine 06/24/17 05/28/21 Keiry Au, KAY [address] [place] [address] [email or web address] PCP - General Internal Medicine 05/29/21 02/11/23 Keiry Au CNP [address] [place] [address] [email or web address] PCP - General Internal Medicine 02/12/23 03/04/25 Chad Esposito DO [address] [place] [phone] [email or web address] PCP - General Internal Medicine 03/05/25 03/13/25 Keiry Au CNP [address] [place] [address] [email or web address] PCP - General Nurse Practitioner 03/14/25 Smiley Saenz MD [address] [place] [address] [email or web address] Historical LMR Provider 01/10/15 05/28/21 Keiry Au CNP [address] [place] [address] [email or web address] Primary Care Physician 06/17/17 Laurie Eaton MD [address] [place] [address] [place] [address] [email or web address] Historical LMR Provider 06/17/17 1 Charlie Aguilar MD [address] [place] [address] Historical LMR Provider 06/17/17 Laurie Eaton MD [address] [place] [address] [email or web address] Insurance Assigned Provider 12/04/23 12/03/24 Keiry Au CNP [address] [place] [address] [email or web address] Insurance Assigned Provider 12/03/24 documented as of this encounter Additional Source Comments The information contained in this document represents components of the legal health record. It is not the complete legal health record.[facility]
--- OUTSIDE RECORDS SUMMARY | 2025-08-19 08:00 | XMS_ITS | Encounter Summary ---
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 Not on file Not on file documented as of this encounter Plan of Treatment Upcoming Encounters Date Type Department Care Team (Late st Contact Info) Description 11/20/2025 11:10 AM EDT Office Visit [facility] Rheumatology Clinic [address] [place] [address] Carla Mercado MD, MPH [address] [place] [address], [address] [place] [address] 12/27/2025 1:00 PM EDT Office Visit [facility] Neurology Clinic [address] [place] [address] [place] [address] Arnaldo Mcdonough MD [address] [place] [address], 2nd [place] [address] documented as of this encounter Visit Diagnoses Not on filedocumented in this encounter Additional Health Concerns Assessment Noted Time PHQ-2 Depression Total Score: 2 10/06/19 1:26 PM EST documented as of this encounter Care Teams Environmental Compliance Officer Relationship Specialty Start Date End Date Chad Esposito DO [address] [place] [phone] [email or web address] PCP - General Internal Medicine 03/05/25 03/13/25 Keiry Au CNP [address] [place] [address] [place] [address] PCP - General Nurse Practitioner 03/14/25 Keiry Au CNP [address] [place] [address] Primary Care Physician 06/17/17 Keiry Au CNP [address] [place] [address] Insurance Assigned Provider 12/03/24 documented as of this encounter Additional Source Comments The information contained in this document represents components of the legal health record. It is not the complete legal health record.[facility]
--- OUTSIDE RECORDS SUMMARY | 2025-08-19 08:00 | XMS_ITS | Encounter Summary ---
Author Organization [facility] Address [address] [place] [address] Phone Care Team Providers Care Diabetic Educator Name Role Phone Keiry Au CNP Unavailable Laurie Eaton MD Unavailable Keiry Au CNP Primary Care Provider Keiry Au CNP Unavailable [phone] Chad Esposito DO Primary Care Provider Keiry Au CNP Primary Care Provider Encounter Details Date Type Department Care Team (Late st Contact Info) Description 09/15/2023 Procedure Pass [facility], [facility] [address] [place] [address] Social History Tobacco Use Types Packs/Day Years [...] 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 Not on file Not on file documented as of this encounter Plan of Treatment Upcoming Encounters Date Type Department Care Team (Late st Contact Info) Description 11/20/2025 11:10 AM EDT Office Visit [facility] Rheumatology Clinic [address] [place] [address] [place] [address] Carla Mercado MD, MPH [address] [place] [address], [address] [place] [address] 12/27/2025 1:00 PM EDT Office Visit [facility] Neurology Clinic [address] [place] [address] [place] [address] Arnaldo Mcdonough MD [address] [place] [address], 2nd [place] [address] [email or web address] documented as of this encounter Visit Diagnoses Not on filedocumented in this encounter Additional Health Concerns Infection Onset Date Last Indicated Resolved Time CoV-Risk 05/19/2024 05/19/2024 05/30/2024 1:22 AM EDT CoV-Risk 08/29/2024 08/29/2024 09/09/2024 1:22 AM EST Assessment Noted Time PHQ-2 Depression Total Score: 0 09/24/19 12:29 PM EST documented as of this encounter Care Teams Diabetic Educator Relationship Specialty Start Date End Date PheKeiry freitas CNP [address] [place] [address] PCP - General Internal Medicine 02/12/23 03/04/25 Chad Esposito DO [address] [place] [address] [phone] [email or web address] PCP - General Internal Medicine 03/05/25 03/13/25 Keiry Au CNP [address] [place] [address] PCP - General Nurse Practitioner 03/14/25 Keiry Au CNP [address] [place] [address] Primary Care Physician 06/17/17 Laurie Eaton MD [address] [place] [address] Insurance Assigned Provider 12/04/23 12/03/24 Keiry Au CNP [address] [place] [address] Insurance Assigned Provider 12/03/24 documented as of this encounter Additional Source Comments The information contained in this document represents components of the legal health record. It is not the complete legal health record.[facility]
--- OUTSIDE RECORDS SUMMARY | 2025-08-19 08:00 | XMS_ITS | Encounter Summary ---
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 on file Not on file documented as of this encounter Plan of Treatment Upcoming Encounters Date Type Department Care Team (Late st Contact Info) Description 11/20/2025 11:10 AM EDT Office Visit [facility] Rheumatology Clinic [address] [place] [address] Carla Mercado MD, MPH [address] [place] [address], [address] [place] [address] 12/27/2025 1:00 PM EDT Office Visit [facility] Neurology Clinic [address] [place] [address] [place] [id number] Arnaldo Mcdonough MD [address] [place] [address], 2nd [place] [address] documented as of this encounter Visit Diagnoses Not on filedocumented in this encounter Additional Health Concerns Assessment Noted Time PHQ-2 Depression Total Score: 2 10/06/19 1:26 PM EST documented as of this encounter Care Teams Mechanical Product Design Engineer Relationship Specialty Start Date End Date Chad Esposito DO [address] [place] [address] [phone] [email or web address] PCP - General Internal Medicine 03/05/25 03/13/25 Keiry Au CNP [address] [place] [address] [place] [address] PCP - General Nurse Practitioner 03/14/25 Keiry Au CNP [address] [place] [address] Primary Care Physician 06/17/17 Keiry Au CNP [address] [place] [address] Insurance Assigned Provider 12/03/24 documented as of this encounter Additional Source Comments The information contained in this document represents components of the legal health record. It is not the complete legal health record.[facility]
--- OUTSIDE RECORDS SUMMARY | 2025-08-19 08:00 | XMS_ITS | Encounter Summary ---
Author Organization [facility] Address [address] [place] [address] Phone Care Team Providers Care Triage Licensed Practical Nurse Name Role Phone Pcp, Not Required Primary Care Provider Unavaila Smiley Scales MD Unavailable Esmer Hunter Unavailable Unavailab Keiry Burton CNP Unavailable [phone] Laurie Eaton MD Unavailable Charlie Aguilar MD Unavailable Laurie Eaton MD Primary Care Provider [phone] PheKeiry freitas CNP Primary Care Provider Laurie Eaton MD Unavailable [phone] PheasantKeiry CNP Primary Care Provider PheKeiry freitas CNP Unavailable [phone] Chad Esposito DO Primary Care Provider PheKeiry freitas CNP Primary Care Provider Encounter Details Date Type Department Care Team (Late st Contact Info) Description 08/14/2016 Procedure Pass [facility] [address] [place] [address] Social History Tobacco Use Types Packs/Day Years [...] Description 11/20/2025 11:10 AM EDT Office Visit [facility] Rheumatology Clinic [address] [place] [address] Carla Mercado MD, MPH [address] [place] [address], [address] [place] [address] [email or web address] 12/27/2025 1:00 PM EDT Office Visit [facility] Neurology Clinic [address] [place] [address] Arnaldo Mcdonough MD [address] [place] [address], 2nd [place] [address] [email or web address] documented as of this encounter Visit Diagnoses Not on filedocumented in this encounter Additional Health Concerns Infection Onset Date Last Indicated Resolved Time CoV-Risk 05/19/2024 05/19/2024 05/30/2024 1:22 AM EDT CoV-Risk 08/29/2024 08/29/2024 09/09/2024 1:22 AM EST documented as of this encounter Care Teams Triage Licensed Practical Nurse Relationship Specialty Start Date End Date Pcp, Not Required PCP - General 07/05/14 06/23/17 Laurie Eaton MD [address] [place] [address] [place] [address] [email or web address] PCP - General Internal Medicine 06/24/17 05/28/21 Keiry Au CNP [address] [place] [address] PCP - General Internal Medicine 05/29/21 02/11/23 Keiry Au CNP [address] [place] [address] PCP - General Internal Medicine 02/12/23 03/04/25 Chad Esposito DO [address] [place] [phone] [email or web address] PCP - General Internal Medicine 03/05/25 03/13/25 Keiry Au CNP [address] [place] [address] PCP - General Nurse Practitioner 03/14/25 Smiley Saenz MD [address] [place] [address] [email or web address] Historical LMR Provider 01/10/15 05/28/21 Esmer Hunter LICSW Historical LMR Provider 06/17/17 08/15/17 Keiry Au CNP [address] [place] [address] Primary Care Physician 06/17/17 Laurie Eaton MD [address] [place] [address] [email or web address] Historical LMR Provider 06/17/17 1 Charlie Aguilar MD [address] [place] [address] Historical LMR Provider 06/17/17 Laurie Eaton MD [address] [place] [address] [place] [address] [email or web address] Insurance Assigned Provider 12/04/23 12/03/24 Keiry Au CNP [address] [place] [address] [place] [address] [email or web address] Insurance Assigned Provider 12/03/24 documented as of this encounter Additional Source Comments The information contained in this document represents components of the legal health record. It is not the complete legal health record.[facility]
--- OUTSIDE RECORDS SUMMARY | 2025-08-19 08:00 | XMS_ITS | Encounter Summary ---
Author Organization [facility] Address [address] [place] [address] Phone Care Team Providers Care Pickler Helper Name Role Phone Keiry Au CNP Unavailable Keiry Au CNP Primary Care Provider Laurie Eaton MD Unavailable Keiry Au CNP Primary Care Provider Keiry Au CNP Unavailable Chad Esposito DO Primary Care Provider Keiry Au CNP Primary Care Provider Encounter Details Date Type Department Care Team (Late st Contact Info) Description 05/29/2022 Procedure Pass [facility], [address] [address] Social History Tobacco Use Types Packs/Day Years [...] 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 Not on file Not on file documented as of this encounter Plan of Treatment Upcoming Encounters Date Type Department Care Team (Late st Contact Info) Description 11/20/2025 11:10 AM EDT Office Visit [facility] Rheumatology Clinic [address] [place] [address] Carla Mercado MD, MPH [address] [place] [address], [address] [place] [address] 12/27/2025 1:00 PM EDT Office Visit [facility] Neurology Clinic [address] [place] [address] [place] [address] Arnaldo Mcdonough MD [address] [place] [address], 2nd [place] [address] [email or web address] documented as of this encounter Visit Diagnoses Not on filedocumented in this encounter Additional Health Concerns Infection Onset Date Last Indicated Resolved Time CoV-Risk 05/19/2024 05/19/2024 05/30/2024 1:22 AM EDT CoV-Risk 08/29/2024 08/29/2024 09/09/2024 1:22 AM EST Assessment Noted Time PHQ-2 Depression Total Score: 0 10/11/19 10:22 AM EST documented as of this encounter Care Teams Pickler Helper Relationship Specialty Start Date End Date Keiry Au CNP [address] [place] [address] PCP - General Internal Medicine 05/29/21 02/11/23 Keiry Au CNP [address] [place] [address] PCP - General Internal Medicine 02/12/23 03/04/25 Chad Esposito DO [address] [place] [address] [phone] [email or web address] PCP - General Internal Medicine 03/05/25 03/13/25 Keiry Au CNP [address] [place] [address] PCP - General Nurse Practitioner 03/14/25 Keiry Au CNP [address] [place] [address] Primary Care Physician 06/17/17 Laurie Eaton MD [address] [place] [address] Insurance Assigned Provider 12/04/23 12/03/24 Keiry Au CNP [address] [place] [address] Insurance Assigned Provider 12/03/24 documented as of this encounter Additional Source Comments The information contained in this document represents components of the legal health record. It is not the complete legal health record.[facility]
--- OUTSIDE RECORDS SUMMARY | 2025-08-19 08:00 | XMS_ITS | Encounter Summary ---
Author Organization [facility] Address [address] [place] [address] Phone Care Team Providers Care Aeronautical Engineering Teacher Name Role Phone Keiry Au CNP Unavailable Keiry Au CNP Primary Care Provider Keiry Au CNP Unavailable Chad Esposito DO Primary Care Provider Keiry Au CNP Primary Care Provider Encounter Details Date Type Department Care Team (Latest Contact Info) Description 02/13/2025 Ancillary Orders [facility], X-Ray - [facility] [address] [place] [address] Chad Esposito, DO [address] [place] [address] [email or web address] osteoarthritis of right knee (Primary Dx) [...] 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 Not on file Not on file documented as of this encounter Plan of Treatment Upcoming Encounters Date Type Department Care Team (Late st Contact Info) Description 11/20/2025 11:10 AM EDT Office Visit [facility] Rheumatology Clinic [address] [place] [address] [place] [address] Carla Mercado MD, MPH [address] [place] [address], [facility] [address] [place] [address] 12/27/2025 1:00 PM EDT Office Visit [facility] Neurology Clinic [address] [place] [address] [place] [address] Arnaldo Mcdonough MD [address] [place] [address], 2nd [place] [address] [email or web address] documented as of this encounter Results * [...] clinician's provided indication for this examination in [facility]: Pain COMPARISON: None Procedure Note So Solitario MD - 02/14/2025 XR KNEE 3 VIEW (RIGHT) 02/13/2025 3:44 PM Referring clinician's provided indication for this examination in [facility]:Pain COMPARISON: None IMPRESSION: FINDINGS/IMPRESSION: There is [...] documented as of this encounter Care Teams Aeronautical Engineering Teacher Relationship Specialty Start Date End Date Keiry Au CNP [address] [place] [address] PCP - General Internal Medicine 02/12/23 03/04/25 Chad Esposito DO [address] [place] [address] [phone] [email or web address] PCP - General Internal Medicine 03/05/25 03/13/25 Keiry Au CNP [address] [place] [address] [place] [address] PCP - General Nurse Practitioner 03/14/25 Keiry Au CNP [address] [place] [address] Primary Care Physician 06/17/17 Keiry Au CNP [address] [place] [address] Insurance Assigned Provider 12/03/24 documented as of this encounter Additional Source Comments The information contained in this document represents components of the legal health record. It is not the complete legal health record.[facility]
--- OUTSIDE RECORDS SUMMARY | 2025-08-19 08:00 | XMS_ITS | Encounter Summary ---
Author Organization [facility] Address [address] [place] [address] Phone Care Team Providers Care Cnc Manager Name Role Phone Smiley Saenz MD Unavailable [phone] Esmer Hunter Unavailable Unavailab le Keiry Au CNP Unavailable [phone] Laurie Eaton MD Unavailable [phone] Charlie Aguilar MD Unavailable Laurie Eaton MD Primary Care Provider [phone] Keiry Au CNP Primary Care Provider Laurie Eaton MD Unavailable [phone] Keiry Au CNP Primary Care Provider Keiry Au CNP Unavailable [phone] Chad Esposito DO Primary Care Provider Keiry Au CNP Primary Care Provider Reason for Referral * Physical Therapy (Routine) - Closed Specialty Diagnoses / Procedures Referred By Madison t Referred To Contact Physical Therapy Diagnoses Encounter for rehabilitation System, Provider Not In, PhD [phone] [place] [address] [place] [address] Phone: tel: Referral ID Status Reason Start Date Expiration Date Visits Re quested Visits Authorized [id number] Closed 07/26/2017 09/24/2017 9 9 * Physical Therapy (Routine) - Closed Specialty Diagnoses / Procedures Referred By Contac t Referred To Contact Physical Therapy Diagnoses Encounter for rehabilitation System, Provider Not In, PhD Partners [phone] [place] [address] 30 [place] [address] Phone: tel: Referral ID Status Reason Start Date Expiration Date Visits Re quested Visits Authorized [id number] Closed 07/26/2017 09/24/2017 9 9 Encounter Details Date Type Department Care Team (Latest Contact Info) Description 07/19/2017 Transcribe Orders [facility] Physical Therapy Clinic [address] [place] [address] [address] [place] [address] [place] [address] [email or web address] Encounter for rehabilitation (Primary Dx) Social History [...] Description 11/20/2025 11:10 AM EDT Office Visit [facility] Rheumatology Clinic [address] [place] [address] Carla Mercado MD, MPH [address] [facility], [address] [place] [address] 12/27/2025 1:00 PM EDT Office Visit [facility] Neurology Clinic [address] [place] [address] Arnaldo Mcdonough MD [address] [facility], 2nd [place] [address] [email or web address] Scheduled Referrals Name Type Priority Associated Diagnoses Orde r Schedule Ambulatory referral to [facility] Physical Therapy Outpatient Referral Routine Encounter for rehabilitation Ordered: 07/29/2017 documented as of this encounter Procedures Procedure Name Priority Date/Time Associated Diagnosis Comments AMB REFERRAL TO [facility] PHYSICAL THERAPY Routine 07/26/2017 5:53 PM EST Encounter for rehabilitation documented in this encounter Results * Ambulatory referral to [facility] Physical Therapy (07/26/2017 5:53 PM EST) us Provider Not In System PhD AMB [facility] REFERRALS Fin al Result documented in this encounter Visit Diagnoses Diagnosis Encounter for rehabilitation- Primary documented in this encounter Additional Health Concerns Infection Onset Date Last Indicated Resolved Time CoV-Risk 05/19/2024 05/19/2024 05/30/2024 1:22 AM EDT CoV-Risk 08/29/2024 08/29/2024 09/09/2024 1:22 AM EST documented as of this encounter Care Teams Cnc Manager Relationship Specialty Start Date End Date Laurie Eaton MD [address] [place] [address] [place] [address] [email or web address] PCP - General Internal Medicine 06/24/17 05/28/21 Keiry Au, KAY [address] [place] [address] [address] [place] [address] PCP - General Internal Medicine 05/29/21 02/11/23 Keiry Au CNP [address] [place] [address] [place] [address] PCP - General Internal Medicine 02/12/23 03/04/25 Chad Esposito DO [address] [place] [phone] [email or web address] PCP - General Internal Medicine 03/05/25 03/13/25 Keiry Au, TREE CLIMBER [address] [place] [address] PCP - General Nurse Practitioner 03/14/25 Smiley Saenz MD [address] [place] [address] [email or web address] Historical LMR Provider 01/10/15 05/28/21 Esmer Hunter MANAGER COMMISSION Historical LMR Provider 06/17/17 08/15/17 Keiry Au, TREE CLIMBER [address] [place] [address] Primary Care Physician 06/17/17 Laurie Eaton MD [address] [place] [address] [email or web address] Historical LMR Provider 06/17/17 1 Charlie Aguilar MD [address] [place] [address] Historical LMR Provider 06/17/17 Laurie Eaton MD [address] [place] [address] [place] [address] [email or web address] Insurance Assigned Provider 12/04/23 12/03/24 Keiry Au CNP [address] [place] [address] [email or web address] Insurance Assigned Provider 12/03/24 documented as of this encounter Additional Source Comments The information contained in this document represents components of the legal health record. It is not the complete legal health record.[facility]
--- OUTSIDE RECORDS SUMMARY | 2025-08-19 08:00 | XMS_ITS | Encounter Summary ---
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 Not on file Not on file documented as of this encounter Plan of Treatment Upcoming Encounters Date Type Department Care Team (Late st Contact Info) Description 11/20/2025 11:10 AM EDT Office Visit [facility] [address] [place] [address] Carla Mercado MD, MPH [address] [place] [address], [facility] [[email or web address] [address] [place] [address] 12/27/2025 1:00 PM EDT Office Visit [facility] [address] [place] [address] [place] [address] Arnaldo Mcdonough MD [address] [place] [address], 2nd [place] [address] documented as of this encounter Visit Diagnoses Not on filedocumented in this encounter Additional Health Concerns Assessment Noted Time PHQ-2 Depression Total Score: 2 10/06/19 25 1:26 PM EST documented as of this encounter Care Teams Network Technical Analyst Relationship Specialty Start Date End Date Keiry Au CNP [address] [place] [address] [place] [address] PCP - General Internal Medicine 02/12/23 03/04/25 Chad Esposito DO [address] [place] [address] [phone] [email or web address] PCP - General Internal Medicine 03/05/25 03/13/25 Keiry Au CNP [address] [place] [address] PCP - General Nurse Practitioner 03/14/25 Keiry Au CNP [address] [place] [address] Primary Care Physician 06/17/17 Keiry Au CNP [address] [place] [address] Insurance Assigned Provider 12/03/24 documented as of this encounter Additional Source Comments The information contained in this document represents components of the legal health record. It is not the complete legal health record.[facility]
--- OUTSIDE RECORDS SUMMARY | 2025-08-19 08:00 | XMS_ITS | Encounter Summary ---
Author Organization [facility] Address [address] [place] [address] Phone Care Team Providers Care Card Sorter Name Role Phone Smiley Saenz MD Unavailable PheKeiry freitas CNP Unavailable [phone] Laurie Eaton MD Unavailable Charlie Aguilar MD Unavailable Laurie Eaton MD Primary Care Provider [phone] PheKeiry freitas CNP Primary Care Provider Laurie Eaton MD Unavailable [phone] PheKeiry freitas CNP Primary Care Provider PheKeiry freitas CNP Unavailable [phone] Chad Esposito DO Primary Care Provider Keiry Au CNP Primary Care Provider Encounter Details Date Type Department Care Team (Late st Contact Info) Description 05/16/2020 Procedure Pass [facility], [address] [address] Social History Tobacco Use Types Packs/Day Years [...] 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 Not on file Not on file documented as of this encounter Plan of Treatment Upcoming Encounters Date Type Department Care Team (Late st Contact Info) Description 11/20/2025 11:10 AM EDT Office Visit [facility] [address] [place] [address] [place] [address] Carla Mercado MD, MPH [address] [place] [address], [address] [place] [address] [email or web address] 12/27/2025 1:00 PM EDT Office Visit [facility] [address] [place] [address] [place] [address] Arnaldo Mcdonough MD [address] [place] [address], 2nd [place] [address] [email or web address] documented as of this encounter Visit Diagnoses Not on filedocumented in this encounter Additional Health Concerns Infection Onset Date Last Indicated Resolved Time CoV-Risk 05/19/2024 05/19/2024 05/30/2024 1:22 AM EDT CoV-Risk 08/29/2024 08/29/2024 09/09/2024 1:22 AM EST Assessment Noted Time PHQ-2 Depression Total Score: 0 10/04/19 11:01 AM EST documented as of this encounter Care Teams Card Sorter Relationship Specialty Start Date End Date Laurie Eaton MD [address] [place] [phone] [email or web address] PCP - General Internal Medicine 06/24/17 05/28/21 Keiry Au, KAY [address] [place] [address] [email or web address] PCP - General Internal Medicine 05/29/21 02/11/23 Keiry Au CNP [address] [place] [address] PCP - General Internal Medicine 02/12/23 03/04/25 Chad Esposito DO [address] [place] [address] [phone] PCP - General Internal Medicine 03/05/25 03/13/25 Keiry Au CNP [address] [place] [address] [email or web address] PCP - General Nurse Practitioner 03/14/25 Smiley Saenz MD [address] [place] [address] [email or web address] Historical LMR Provider 01/10/15 05/28/21 Keiry Au CNP [address] [place] [address] [email or web address] Primary Care Physician 06/17/17 Laurie Eaton MD [address] [place] [address] [place] [address] [email or web address] Historical LMR Provider 06/17/17 1 Charlie Aguilar MD [address] [place] [address] Historical LMR Provider 06/17/17 Laurie Eaton MD [address] [place] [address] [place] [address] [email or web address] Insurance Assigned Provider 12/04/23 12/03/24 Keiry Au CNP [address] [place] [address] [place] [address] [email or web address] Insurance Assigned Provider 12/03/24 documented as of this encounter Additional Source Comments The information contained in this document represents components of the legal health record. It is not the complete legal health record.[facility]
--- OUTSIDE RECORDS SUMMARY | 2025-08-19 08:01 | XMS_ITS | Encounter Summary ---
Author Organization [facility] Address [address] [place] [address] Phone Care Team Providers Care Bellows Assembler Name Role Phone Smiley Saenz MD Unavailable PheKeiry freitas CNP Unavailable [phone] Laurie Eaton MD Unavailable Charlie Aguilar MD Unavailable Lauire Eaton MD Primary Care Provider [phone] PheasantKeiry CNP Primary Care Provider Laurie Eaton MD Unavailable [phone] PheasantKeiry CNP Primary Care Provider PheasantKeiry CNP Unavailable [phone] Chad Esposito DO Primary Care Provider PheKeiry freitas CNP Primary Care Provider Encounter Details Date Type Department Care Team (Late st Contact Info) Description 08/16/2017 Telephone [facility] [address] [place] [address] [phone] Chano Ivey MD [facility] [place], [place] [phone] Social History Tobacco Use Types Packs/Day Years [...] Description 11/20/2025 11:10 AM EDT Office Visit [facility] [address] [place] [address] [place] [address] Carla Mercado MD, MPH [address] [place] [address], [address] [place] [address] [email or web address] 12/27/2025 1:00 PM EDT Office Visit [facility] [address] [place] [address] [place] [address] Arnaldo Mcdonough MD [address] [place] [address], 2nd [place] [address] [email or web address] documented as of this encounter Visit Diagnoses Not on filedocumented in this encounter Additional Health Concerns Infection Onset Date Last Indicated Resolved Time CoV-Risk 05/19/2024 05/19/2024 05/30/2024 1:22 AM EDT CoV-Risk 08/29/2024 08/29/2024 09/09/2024 1:22 AM EST documented as of this encounter Care Teams Bellows Assembler Relationship Specialty Start Date End Date Laurie Eaton MD [address] [place] [address] [place] [address] [email or web address] PCP - General Internal Medicine 06/24/17 05/28/21 Keiry Au, PIPELINE DISPATCH OPERATOR [address] [place] [address] PCP - General Internal Medicine 05/29/21 02/11/23 Keiry Au CNP [address] [place] [address] PCP - General Internal Medicine 02/12/23 03/04/25 Chad Esposito DO [address] [place] [phone] [email or web address] PCP - General Internal Medicine 03/05/25 03/13/25 Keiry Au CNP [address] [place] [address] PCP - General Nurse Practitioner 03/14/25 Smiley Saenz MD [address] [place] [address] [email or web address] Historical LMR Provider 01/10/15 05/28/21 Keiry Au CNP [address] [place] [address] Primary Care Physician 06/17/17 Laurie Eaton MD [address] [place] [address] Historical LMR Provider 06/17/17 Charlie Valenzuela MD [address] [place] [address] Historical LMR Provider 06/17/17 Laurie Eaton MD [address] [place] [address] [place] [address] [email or web address] Insurance Assigned Provider 12/04/23 12/03/24 Keiry Au CNP 14 [facility] [address] [place] [address] [email or web address] Insurance Assigned Provider 12/03/24 documented as of this encounter Additional Source Comments The information contained in this document represents components of the legal health record. It is not the complete legal health record.[facility]
--- OUTSIDE RECORDS SUMMARY | 2025-08-19 08:01 | XMS_ITS | Encounter Summary ---
Author Organization [facility] Address [address] [place] [address] Phone Care Team Providers Care Rating Officer Name Role Phone Smiley Saenz MD Unavailable PheKeiry freitas CNP Unavailable [phone] Laurie Eaton MD Unavailable Charlie Aguilar MD Unavailable Laurie Eaton MD Primary Care Provider [phone] PheKeiry freitas CNP Primary Care Provider Laurie Eaton MD Unavailable [phone] PheKeiry freitas CNP Primary Care Provider PheKeiry freitas CNP Unavailable [phone] Chad Esposito DO Primary Care Provider [phone] Keiry Au CNP Primary Care Provider Encounter Details Date Type Department Care Team (Late st Contact Info) Description 04/04/2020 Procedure Pass [facility], [address] [address] Social History Tobacco Use Types Packs/Day Years [...] 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 on 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 Not [...] Description 11/20/2025 11:10 AM EDT Office Visit [facility] [address] [place] [address] [place] [address] Carla Mercado MD, MPH [address] [place] [address], [address] [place] [address] 12/27/2025 1:00 PM EDT Office Visit [facility] [address] [place] [address] [place] [address] Arnaldo Mcdonough MD [address] [place] [address], 2nd [place] [address] documented as of this encounter Visit Diagnoses Not on filedocumented in this encounter Additional Health Concerns Infection Onset Date Last Indicated Resolved Time CoV-Risk 05/19/2024 05/19/2024 05/30/2024 1:22 AM EDT CoV-Risk 08/29/2024 08/29/2024 09/09/2024 1:22 AM EST Assessment Noted Time PHQ-2 Depression Total Score: 0 10/04/19 11:01 AM EST documented as of this encounter Care Teams Rating Officer Relationship Specialty Start Date End Date Laurie Eaton MD [address] [place] [address] [place] [address] [email or web address] PCP - General Internal Medicine 06/24/17 05/28/21 Keiry Au CNP [address] [place] [address] [email or web address] PCP - General Internal Medicine 05/29/21 02/11/23 Keiry Au CNP [address] [place] [address] PCP - General Internal Medicine 02/12/23 03/04/25 Chad Esposito DO [address] [place] [phone] [email or web address] PCP - General Internal Medicine 03/05/25 03/13/25 Keiry Au CNP [address] [place] [address] PCP - General Nurse Practitioner 03/14/25 Smiley Saenz MD [address] [place] [address] [email or web address] Historical LMR Provider 01/10/15 05/28/21 Keiry Au CNP [address] [place] [address] [place] [address] Primary Care Physician 06/17/17 Laurie Eaton MD [address] [place] [address] [place] [address] Historical LMR Provider 06/17/17 1 Charlie Aguilar MD [address] [place] [address] Historical LMR Provider 06/17/17 Laurie Eaton MD [address] [place] [address] Insurance Assigned Provider 12/04/23 12/03/24 Keiry Au, KAY [address] [place] [address] Insurance Assigned Provider 12/03/24 documented as of this encounter Additional Source Comments The information contained in this document represents components of the legal health record. It is not the complete legal health record.[facility]
--- OUTSIDE RECORDS SUMMARY | 2025-08-19 08:01 | XMS_ITS | Encounter Summary ---
Author Organization [facility] Address [address] [place] [address] Phone Care Team Providers Care Gang Drill Press Operator Name Role Phone Pcp, Not Required Primary Care Provider Unavaila Smiley Scales MD Unavailable Esmer Hunter Unavailable Unavailab Keiry Burton CNP Unavailable [phone] Laurie Eaton MD Unavailable Charlie Aguilar MD Unavailable Laurie Eaton MD Primary Care Provider [phone] Keiry Au CNP Primary Care Provider Laurie Eaton MD Unavailable [phone] PheKeiry freitas CNP Primary Care Provider Keiry Au CNP Unavailable [phone] Chad Esposito DO Primary Care Provider Keiry Au CNP Primary Care Provider Encounter Details Date Type Department Care Team (Late st Contact Info) Description 06/29/2016 Procedure Pass [facility] [address] [place] [address] Social History Tobacco Use Types Packs/Day Years [...] 11/20/2025 11:10 AM EDT Office Visit [facility] Rheumatology Clinic [address] [place] [address] [place] [address] Carla Mercado MD, MPH [address] [place] [address], [address] [place] [address] [email or web address] 12/27/2025 1:00 PM EDT Office Visit [facility] Neurology [address] [place] [address] Arnaldo Mcdonough MD [address] [place] [address], 2nd [place] [address] [email or web address] documented as of this encounter Visit Diagnoses Not on filedocumented in this encounter Additional Health Concerns Infection Onset Date Last Indicated Resolved Time CoV-Risk 05/19/2024 05/19/2024 05/30/2024 1:22 AM EDT CoV-Risk 08/29/2024 08/29/2024 09/09/2024 1:22 AM EST documented as of this encounter Care Teams Gang Drill Press Operator Relationship Specialty Start Date End Date Pcp, Not Required PCP - General 07/05/14 06/23/17 Laurie Eaton MD [address] [place] [address] [email or web address] PCP - General Internal Medicine 06/24/17 05/28/21 Keiry Au CNP [address] [place] [address] [place] [address] PCP - General Internal Medicine 05/29/21 02/11/23 Keiry Au, KAY [address] [place] [address] PCP - General Internal Medicine 02/12/23 03/04/25 Chad Esposito DO [address] [place] [phone] [email or web address] PCP - General Internal Medicine 03/05/25 03/13/25 Keiry Au, KAY [address] [place] [address] PCP - General Nurse Practitioner 03/14/25 Smiley Saenz MD [address] [place] [address] [email or web address] Historical LMR Provider 01/10/15 05/28/21 Esmer Hunter LICSW Historical LMR Provider 06/17/17 08/15/17 Keiry Au, KAY [address] [place] [address] Primary Care Physician 06/17/17 Laurie Eaton MD [address] [place] [address] Historical LMR Provider 06/17/17 9 1 Charlie Aguilar MD [address] [place] [address] Historical LMR Provider 06/17/17 Laurie Eaton MD [address] [place] [address] [place] [address] [email or web address] Insurance Assigned Provider 12/04/23 12/03/24 Keiry Au CNP [address] [place] [address] [place] [address] [email or web address] Insurance Assigned Provider 12/03/24 documented as of this encounter Additional Source Comments The information contained in this document represents components of the legal health record. It is not the complete legal health record.[facility]
--- OUTSIDE RECORDS SUMMARY | 2025-08-19 08:01 | XMS_ITS | Encounter Summary ---
Author Organization [facility] Address [address] [place] [address] Phone Care Team Providers Care Test And Balance Engineer Name Role Phone Smiley Saenz MD Unavailable PheKeiry freitas CNP Unavailable [phone] Laurie Eaton MD Unavailable [phone] Charlie Aguilar MD Unavailable Laurie Eaton MD Primary Care Provider [phone] PheKeiry freitas CNP Primary Care Provider Laurie Eaton MD Unavailable [phone] PheKeiry freitas CNP Primary Care Provider PheKeiry freitas CNP Unavailable [phone] Chad Esposito DO Primary Care Provider [phone] PheKeiry freitas CNP Primary Care Provider Encounter Details Date Type Department Care Team (Late st Contact Info) Description 05/16/2018 Ancillary Orders [facility] [address] [facility] [address] [place] [address] Laurie Eaton MD 14 [facility] [address] [place] [address] [email or web address] Breast screening Social History Tobacco Use Types [...] Description 11/20/2025 11:10 AM EDT Office Visit [facility] [address] [place] [address] [place] [address] Carla Mercado MD, MPH [address] [place] [address], [address] [place] [address] [email or web address] 12/27/2025 1:00 PM EDT Office Visit [facility] [address] [place] [address] [place] [address] Arnaldo Mcdonough MD [address] [place] [address], 2nd [place] [address] [email or web address] documented as of this encounter Results * BI MAMMOGRAM SCREENING WITH TOMOSYNTHESIS WITH CAD (BILATERAL) (08/09/2018 1:17 PM EST) Anatomical Region Laterality Modality Breast Left, Breast Right, Breast Bilateral Bila teral Mammography 08/09/2018 1:49 PM EST Impressions 08/09/2018 1:52 PM EST Stable appearance relative to prior imaging. No findings suggestive of malignancy are seen. BI-RADS CATEGORY: 2 - Benign finding. DENSITY: The breast tissue is heterogeneously dense, an appearance which lowers the sensitivity of mammography. POS - [id number] Narrative 08/09/2018 1:52 PM EST Full-field digital mammography is obtained with computer-aided detection. Comparison with prior imaging from 08/05/2017 is made with older imaging dating back as far as 06/23/2012 also reviewed. There is heterogeneous fibroglandular density evident in the breasts. In addition to 2-D C view imaging, tomosynthesis images are obtained in two projections of each breast. A normal density in the retroareolar left breast is unchanged and measures up to 2.7 cm in diameter.. No dominant soft tissue mass of concern, suspicious cluster of calcifications, significant interval skin changes, or architectural distortion is identified. Procedure Note Catarino Gaytan MD - 08/09/2018 Full-field digital mammography is obtained with computer-aided detection.Comparison with prior imaging from 08/05/2017 is made with older imagingdating back as far as 06/23/2012 also reviewed. There is heterogeneous fibroglandular density evident in the breasts. Inaddition to 2-D C view imaging, tomosynthesis images are obtained in twoprojections of each breast. A normal density in the retroareolar left breast is unchanged and measuresup to 2.7 cm in diameter.. No dominant soft tissue mass of concern,suspicious cluster of calcifications, significant interval skin changes,or architectural distortion is identified. IMPRESSION: Stable appearance relative to prior imaging. No findings suggestive ofmalignancy are seen. BI-RADS CATEGORY: 2 - Benign finding. DENSITY: The breast tissue is heterogeneously dense, an appearance whichlowers the sensitivity of mammography. POS - [id number] Laurie Eaton MD IMG MG EXAMS Final Result documented in this encounter Visit Diagnoses Diagnosis Breast screening Breast screening, unspecified Breast screening Breast screening, unspecified documented in this encounter Additional Health Concerns Infection Onset Date Last Indicated Resolved Time CoV-Risk 05/19/2024 05/19/2024 05/30/2024 1:22 AM EDT CoV-Risk 08/29/2024 08/29/2024 09/09/2024 1:22 AM EST documented as of this encounter Care Teams Test And Balance Engineer Relationship Specialty Start Date End Date Laurie Eaton MD [address] [place] [address] [email or web address] PCP - General Internal Medicine 06/24/17 05/28/21 Keiry Au CNP [address] [place] [address] [email or web address] PCP - General Internal Medicine 05/29/21 02/11/23 Keiry Au CNP [address] [place] [address] PCP - General Internal Medicine 02/12/23 03/04/25 Chad Esposito DO [address] [place] [address] [phone] [email or web address] PCP - General Internal Medicine 03/05/25 03/13/25 Keiry Au CNP [address] [place] [address] [email or web address] PCP - General Nurse Practitioner 03/14/25 Smiley Saenz MD [address] [place] [address] [email or web address] Historical LMR Provider 01/10/15 05/28/21 Keiry Au CNP [address] [place] [address] [email or web address] Primary Care Physician 06/17/17 Laurie Eaton MD [address] [place] [address] [place] [address] [email or web address] Historical LMR Provider 06/17/17 1 Charlie Aguilar MD [address] [place] [address] Historical LMR Provider 06/17/17 Laurie Eaton MD [address] [place] [address] [email or web address] Insurance Assigned Provider 12/04/23 12/03/24 Keiry Au, KAY [address] [place] [address] [email or web address] Insurance Assigned Provider 12/03/24 documented as of this encounter Additional Source Comments The information contained in this document represents components of the legal health record. It is not the complete legal health record.[facility]
--- OUTSIDE RECORDS SUMMARY | 2025-08-19 08:01 | XMS_ITS | Encounter Summary ---
Author Organization [facility] Address [address] [place] [address] Phone Care Team Providers Care Cooker Chip Name Role Phone Keiry Au CNP Unavailable Keiry Au CNP Primary Care Provider Laurie Eaton MD Unavailable [phone] Keiry Au CNP Primary Care Provider Keiry Au CNP Unavailable Chad Esposito DO Primary Care Provider Keiry Au CNP Primary Care Provider Encounter Details Date Type Department Care Team (Late st Contact Info) Description 06/17/2021 Transcribe Orders Virtual Department 30 [place] [address] Keiry Au CNP 14 [facility] [address] [place] [address] [email or web address] Breast screening (Primary Dx) Social History Tobacco [...] 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 Not on file Not on file documented as of this encounter Plan of Treatment Upcoming Encounters Date Type Department Care Team (Late st Contact Info) Description 11/20/2025 11:10 AM EDT Office Visit [facility] Rheumatology Clinic [address] [place] [address] Carla Mercado MD, MPH [address] [place] [address], [address] [place] [address] [email or web address] 12/27/2025 1:00 PM EDT Office Visit [facility] Neurology Clinic [address] [place] [address] [place] [address] Arnaldo Mcdonough MD [address] [place] [address], 2nd [place] [address] [email or web address] documented as of this encounter Results * [...] could obscurea lesion on mammography. Keiry Au [facility] IM MG EXAMS Final Result documented in [...] documented as of this encounter Care Teams Cooker Chip Relationship Specialty Start Date End Date Keiry Au CNP [address] [place] [address] PCP - General Internal Medicine 05/29/21 02/11/23 Keiry Au CNP [address] [place] [address] PCP - General Internal Medicine 02/12/23 03/04/25 Chad Esposito DO [address] [place] [phone] [email or web address] PCP - General Internal Medicine 03/05/25 03/13/25 Keiry Au CNP [address] [place] [address] PCP - General Nurse Practitioner 03/14/25 Keiry Au CNP [address] [place] [address] Primary Care Physician 06/17/17 Laurie Eaton MD [address] [place] [address] [email or web address] Insurance Assigned Provider 12/04/23 12/03/24 Keiry Au CNP [address] [place] [address] [email or web address] Insurance Assigned Provider 12/03/24 documented as of this encounter Additional Source Comments The information contained in this document represents components of the legal health record. It is not the complete legal health record.[facility]
--- OUTSIDE RECORDS SUMMARY | 2025-08-19 08:01 | XMS_ITS | Encounter Summary ---
Author Organization [facility] Address [address] [place] [address] Phone Care Team Providers Care Wire Loop Machine Operator Name Role Phone Smiley Saenz MD Unavailable PheKeiry freitas CNP Unavailable [phone] Laurie Eaton MD Unavailable [phone] Charlie Aguilar MD Unavailable Laurie Eaton MD Primary Care Provider [phone] PheKeiry freitas CNP Primary Care Provider Laurie Eaton MD Unavailable [phone] Keiry Au CNP Primary Care Provider Keiry Au CNP Unavailable [phone] Chad Esposito DO Primary Care Provider Keiry Au CNP Primary Care Provider Reason for Referral * Physical Therapy (Routine) - Closed Specialty Diagnoses / Procedures Referred By Contsuze t Referred To Contact Physical Therapy Diagnoses Encounter for rehabilitation System, Provider Not In, [facility] [id number] [place] [address] Phone: tel: Referral ID Status Reason Start Date Expiration Date Visits Re quested Visits Authorized [id number] Closed 11/01/2017 04/15/2018 30 30 Encounter Details Date Type Department Care Team (Latest Contact Info) Description 10/22/2017 Transcribe Orders [facility] [address] [place] [address] Gold Gu MD 71 [facility], [address] [place] [address] Encounter for rehabilitation (Primary Dx) Social History [...] Description 11/20/2025 11:10 AM EDT Office Visit [facility] Rheumatology Clinic [address] [place] [address] Carla Mercado MD, MPH [address] [place] [address], [address] [place] [address] 12/27/2025 1:00 PM EDT Office Visit [facility] Neurology Clinic [address] [place] [address] [place] [address] Arnaldo Mcdonough MD [address] [place] [address], 2nd [place] [address] Scheduled Referrals Name Type Priority Associated Diagnoses Orde r Schedule Ambulatory referral to [facility] Physical Therapy Outpatient Referral Routine Encounter for rehabilitation Ordered: 10/22/2017 documented as of this encounter Visit Diagnoses Diagnosis Encounter for rehabilitation- Primary documented in this encounter Additional Health Concerns Infection Onset Date Last Indicated Resolved Time CoV-Risk 05/19/2024 05/19/2024 05/30/2024 1:22 AM EDT CoV-Risk 08/29/2024 08/29/2024 09/09/2024 1:22 AM EST documented as of this encounter Care Teams Wire Loop Machine Operator Relationship Specialty Start Date End Date Laurie Eaton MD [address] [place] [address] [place] [address] PCP - General Internal Medicine 06/24/17 05/28/21 Keiry Au CNP [address] [place] [address] PCP - General Internal Medicine 05/29/21 02/11/23 Keiry Au CNP [address] [place] [address] PCP - General Internal Medicine 02/12/23 03/04/25 Chad Esposito DO [address] [place] [phone] [email or web address] PCP - General Internal Medicine 03/05/25 03/13/25 Keiry Au CNP [address] [place] [address] PCP - General Nurse Practitioner 03/14/25 Smiley Saenz MD [address] [place] [address] [email or web address] Historical LMR Provider 01/10/15 05/28/21 Keiry Au CNP [address] [place] [address] [place] [address] Primary Care Physician 06/17/17 Laurie Eaton MD [address] [place] [address] [place] [address] Historical LMR Provider 06/17/17 1 Charlie Aguilar MD [address] [place] [address] Historical LMR Provider 06/17/17 Laurie Eaton MD [address] [place] [address] Insurance Assigned Provider 12/04/23 12/03/24 Keiry Au, KAY [address] [place] [address] Insurance Assigned Provider 12/03/24 documented as of this encounter Additional Source Comments The information contained in this document represents components of the legal health record. It is not the complete legal health record.[facility]
--- OUTSIDE RECORDS SUMMARY | 2025-08-19 08:01 | XMS_ITS | Encounter Summary ---
Author Organization [facility] Address [address] [place], [place] [phone] Phone Care Team Providers Care Spring Encaser Name Role Phone Keiry Au CNP Unavailable [...] Procedures CT Foot (Right) Dionisio Su MD [address] [place] [address] Phone: tel: fax: [email or web address] Referral ID Status Reason Start Date Expiration Date Visits Re quested Visits Authorized [id number] Closed 12/25/2022 1 1 Encounter Details Date Type Department Care Team (Late Contact Info) Description 12/25/2022 Transcribe Orders Virtual Department 30 [place] [address] Dionisio Su MD [address] [phone] 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 [address] [place] [address] 12/27/2025 1:00 PM EDT Office Visit [facility] Neurology Clinic [address] [place] [address] Arnaldo Mcdonough MD 22 [facility], 2nd [place] [address] [email or web address] documented as of this encounter Results * [...] documented as of this encounter Care Teams [place] Encaser Relationship Specialty Start Date End Date Keiry Au CNP [address] [place] [address] [email or web address] PCP - General Internal Medicine 05/29/21 02/11/23 Keiry Au CNP [address] [place] [address] PCP - General Internal Medicine 02/12/23 03/04/25 Chad Esposito DO [address] [place] [phone] PCP - General Internal Medicine 03/05/25 03/13/25 Keiry Au CNP [address] [place] [address] [place] [address] PCP - General Nurse Practitioner 03/14/25 Keiry Au CNP [address] [place] [address] Primary Care Physician 06/17/17 Laurie Eaton MD [address] [place] [address] 12036 Insurance Assigned Provider 12/04/23 12/03/24 Keiry Au CNP [address] [place] [address] Insurance Assigned Provider 12/03/24 documented as of this encounter Additional Source Comments The information contained in this document represents components of the legal health record. It is not the complete legal health record.[facility]
--- OUTSIDE RECORDS SUMMARY | 2025-08-19 08:01 | XMS_ITS | Encounter Summary ---
Author Organization [facility] Address [address] [place] [address] Phone Care Team Providers Care Mold Machine Operator Name Role Phone Keiry Au CNP Unavailable Keiry Au CNP Primary Care Provider Laurie Eaton MD Unavailable [phone] Keiry Au CNP Primary Care Provider Keiry Au CNP Unavailable Chad Esposito DO Primary Care Provider Keiry Au CNP Primary Care Provider Encounter Details Date Type Department Care Team (Late st Contact Info) Description 12/25/2022 Procedure Pass [facility], Ct Scan - [facility] [address] [place] [address] Social History Tobacco Use Types Packs/Day Years [...] 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 Not on file Not on file documented as of this encounter Plan of Treatment Upcoming Encounters Date Type Department Care Team (Late st Contact Info) Description 11/20/2025 11:10 AM EDT Office Visit [facility] Rheumatology Clinic [address] [place] [address] [place] [address] Carla Mercado MD, MPH [address] [place] [address], [address] [place] [address] 12/27/2025 1:00 PM EDT Office Visit [facility] Neurology Clinic [address] [place] [address] [place] [address] Arnaldo Mcdonough MD [address] [place] [address], 2nd [place] [address] [email or web address] documented as of this encounter Visit Diagnoses Not on filedocumented in this encounter Additional Health Concerns Infection Onset Date Last Indicated Resolved Time CoV-Risk 05/19/2024 05/19/2024 05/30/2024 1:22 AM EDT CoV-Risk 08/29/2024 08/29/2024 09/09/2024 1:22 AM EST Assessment Noted Time PHQ-2 Depression Total Score: 0 10/11/19 10:22 AM EST documented as of this encounter Care Teams Mold Machine Operator Relationship Specialty Start Date End Date Keiry Au CNP [address] [place] [address] [place] [address] PCP - General Internal Medicine 05/29/21 02/11/23 Keiry Au CNP [address] [place] [address] PCP - General Internal Medicine 02/12/23 03/04/25 Chad Esposito DO [address] [place] [phone] [email or web address] PCP - General Internal Medicine 03/05/25 03/13/25 Keiry Au CNP [address] [place] [address] PCP - General Nurse Practitioner 03/14/25 Keiry Au CNP [address] [place] [address]36 Primary Care Physician 06/17/17 Laurie Eaton MD [address] [place] [address] Insurance Assigned Provider 12/04/23 12/03/24 Keiry Au CNP [address] [place] [address] [phone] Insurance Assigned Provider 12/03/24 documented as of this encounter Additional Source Comments The information contained in this document represents components of the legal health record. It is not the complete legal health record.[facility]
--- OUTSIDE RECORDS SUMMARY | 2025-08-19 08:01 | XMS_ITS | Encounter Summary ---
Author Organization [facility] Address [address] [place] [address] Phone Care Team Providers Care Cutter Operator Tile Name Role Phone Smiley Saenz MD Unavailable Keiry Au CNP Unavailable [phone] Laurie Eaton MD Unavailable Charlie Aguilar MD Unavailable Laurie Eaton MD Primary Care Provider [phone] PheKeiry freitas CNP Primary Care Provider Laurie Eaton MD Unavailable [phone] PheKeiry freitas CNP Primary Care Provider Keiry Au PARTNER MANAGER Unavailable [phone] Chad Esposito DO Primary Care Provider PheKeiry freitas CNP Primary Care Provider Encounter Details Date Type Department Care Team (Late st Contact Info) Description 05/16/2020 Ancillary Orders [facility] Primary Care Clinic 14 [facility] [address] [place] [address] Keiry Au CNP 14 [facility] [address] [place] [address] [email or web address] Breast screening Social History [...] 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 Date 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 Not on file Not on file documented as of this encounter Plan of Treatment Upcoming Encounters Date Type Department Care Team (Late st Contact Info) Description 11/20/2025 11:10 AM EDT Office Visit [facility] Rheumatology Clinic [address] [place] [address] [place] [address] Carla Mercado MD, MPH [address] [place] [address], [facility] [address] [place] [address] [email or web address] 12/27/2025 1:00 PM EDT Office Visit [facility] Neurology Clinic [address] [place] [address] [place] [address] Arnaldo Mcdonough MD [address] [place] [address], 2nd [place] [address] [email or web address] documented as of this [...] could obscurea lesion on mammography. Keiry Au PARTNER MANAGER IM MG EXAMS Edited Result - Final [...] documented as of this encounter Care Teams Cutter Operator Tile Relationship Specialty Start Date End Date Laurie Eaton MD [address] [place] [address] [place] [address] [email or web address] PCP - General Internal Medicine 06/24/17 05/28/21 Keiry Au CNP [address] [place] [address] PCP - General Internal Medicine 05/29/21 02/11/23 Keiry Au CNP [address] [place] [address]997 PCP - General Internal Medicine 02/12/23 03/04/25 Chad Esposito DO [address] [place] [phone] [email or web address] PCP - General Internal Medicine 03/05/25 03/13/25 Keiry Au CNP [address] [place] [address] PCP - General Nurse Practitioner 03/14/25 Smiley Saenz MD [address] [place] [address] [email or web address] Historical LMR Provider 01/10/15 05/28/21 Keiry Au, PARTNER MANAGER [address] [place] [address]90 Primary Care Physician 06/17/17 Laurie Eaton MD [address] [place] [address] Historical LMR Provider 06/17/17 1 Charlie Aguilar MD [address] [place] [address] Historical LMR Provider 06/17/17 Laurie Eaton MD [address] [place] [address] Insurance Assigned Provider 12/04/23 12/03/24 Keiry Au, PARTNER MANAGER [address] [place] [address] Insurance Assigned Provider 12/03/24 documented as of this encounter Additional Source Comments The information contained in this document represents components of the legal health record. It is not the complete legal health record.[facility]
--- OUTSIDE RECORDS SUMMARY | 2025-08-19 08:01 | XMS_ITS | Encounter Summary ---
Author Organization [employer] [facility] Address [address] [place] [address] Phone Care Team Providers Care Director Home Name Role Phone Smiley Saenz MD Unavailable PheKeiry freitas CNP Unavailable [phone] Laurie Eaton MD Unavailable [phone] Charlie Aguilar MD Unavailable Laurie Eaton MD Primary Care Provider [phone] PheKeiry freitas CNP Primary Care Provider Laurie Eaton MD Unavailable [phone] PheKeiry freitas CNP Primary Care Provider PheKeiry freitas CNP Unavailable [phone] Chad Esposito DO Primary Care Provider Keiry Au CNP Primary Care Provider Encounter Details Date Type Department Care Team (Late st Contact Info) Description 10/12/2019 Procedure Pass [facility], [address] [address] Social History Tobacco Use Types Packs/Day Years [...] 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 Date 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 Not on file Not [...] Description 11/20/2025 11:10 AM EDT Office Visit [facility] Rheumatology Clinic [address] [place] [address] [place] [address] Carla Mercado MD, MPH [address] [place] [address], [address] [place] [address] 12/27/2025 1:00 PM EDT Office Visit [facility] Neurology Clinic [address] [place] [address] [place] [address] Arnaldo Mcdonough MD [address] [place] [address], 2nd [place] [address] documented as of this encounter Visit Diagnoses Not on filedocumented in this encounter Additional Health Concerns Infection Onset Date Last Indicated Resolved Time CoV-Risk 05/19/2024 05/19/2024 05/30/2024 1:22 AM EDT CoV-Risk 08/29/2024 08/29/2024 09/09/2024 1:22 AM EST Assessment Noted Time PHQ-2 Depression Total Score: 0 10/04/19 11:01 AM EST documented as of this encounter Care Teams Director Home Relationship Specialty Start Date End Date Laurie Eaton MD [address] [place] [address] [place] [address] [email or web address] PCP - General Internal Medicine 06/24/17 05/28/21 Keiry Au CNP [address] [place] [address] PCP - General Internal Medicine 05/29/21 02/11/23 Keiry Au CNP [address] [place] [address] PCP - General Internal Medicine 02/12/23 03/04/25 Chad Esposito DO [address] [place] [phone] [email or web address] PCP - General Internal Medicine 03/05/25 03/13/25 Keiry Au CNP [address] [place] [address] PCP - General Nurse Practitioner 03/14/25 Smiley Saenz MD [address] [place] [address] [email or web address] Historical LMR Provider 01/10/15 05/28/21 Keiry Au CNP [address] [place] [address] [place] [address] Primary Care Physician 06/17/17 Laurie Eaton MD [address] [place] [address] Historical LMR Provider 06/17/17 1 Charlie Aguilar MD [address] [place], [place] [id number] Historical LMR Provider 06/17/17 Laurie Eaton MD [address] [place] [phone] Insurance Assigned Provider 12/04/23 12/03/24 Keiry Au, KAY [address] [place] [address] 31879 Insurance Assigned Provider 12/03/24 documented as of this encounter Additional Source Comments The information contained in this document represents components of the legal health record. It is not the complete legal health record.[facility]
--- OUTSIDE RECORDS SUMMARY | 2025-08-19 08:01 | XMS_ITS | Encounter Summary ---
Author Organization [facility] Address [address] [place] [address] Phone Care Team Providers Care Directory Clerk Name Role Phone Keiry Au CNP Unavailable Laurie Eaton MD Unavailable [phone] Keiry Au CNP Primary Care Provider Keiry Au CNP Unavailable [phone] Chad Esposito DO Primary Care Provider Keiry Au CNP Primary Care Provider Encounter Details Date Type Department Care Team ([facility] st Contact Info) Description 06/08/2023 Transcribe Orders Virtual Department 30 [place] [address] Keiry Au CNP 14 [facility] [address] [place] [address] [email or web address] Breast screening (Primary Dx) Social [...] 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 Not on file Not on file documented as of this encounter Plan of Treatment Upcoming Encounters Date Type Department Care Team (Late st Contact Info) Description 11/20/2025 11:10 AM EDT Office Visit [facility] Rheumatology Clinic [address] [place] [address] [place] [address] Carla Mercado MD, MPH [address] [place] [address], [address] [place] [address] [email or web address] 12/27/2025 1:00 PM EDT Office Visit [facility] Neurology Clinic [address] [place] [address] [place] [address] Arnaldo Mcdonough MD [address] [place] [address], 2[address] [place] [address] [email or web address] documented as of this [...] benign core needle biopsy on the right [id number]. Small focal asymmetry in the outer right [...] breast ultrasound in case necessary. Keiry Au OFFSET LITHOGRAPHIC PRESS OPERATOR IMG MG EXAMS Final Result documented in [...] documented as of this encounter Care Teams Directory Clerk Relationship Specialty Start Date End Date Keiry Au CNP [address] [place] [address] [email or web address] PCP - General Internal Medicine 02/12/23 03/04/25 Chad Esposito DO [address] [place] [phone] [email or web address] PCP - General Internal Medicine 03/05/25 03/13/25 Keiry Au CNP [address] [place] [address] PCP - General Nurse Practitioner 03/14/25 Keiry Au CNP [address] [place] [address] [place] [address] [email or web address] Primary Care Physician 06/17/17 Laurie Eaton MD [address] [place] [address] [email or web address] Insurance Assigned Provider 12/04/23 12/03/24 Keiry Au CNP [address] [place] [address] [email or web address] Insurance Assigned Provider 12/03/24 documented as of this encounter Additional Source Comments The information contained in this document represents components of the legal health record. It is not the complete legal health record.[facility]
--- OUTSIDE RECORDS SUMMARY | 2025-08-19 08:01 | XMS_ITS | Encounter Summary ---
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 Not on file Not on file documented as of this encounter Plan of Treatment Upcoming Encounters Date Type Department Care Team (Late st Contact Info) Description 11/20/2025 11:10 AM EDT Office Visit [facility] [address] [place] [address] [place] [address] Carla Mercado MD, MPH [address] [place] [address], [address] [place] [address] 12/27/2025 1:00 PM EDT Office Visit [facility] [address] [place] [address] [place] [address] Arnaldo Mcdonough MD [address] [place] [address], 2nd [place] [address] [email or web address] documented as of this encounter Visit Diagnoses Not on filedocumented in this encounter Additional Health Concerns Infection Onset Date Last Indicated Resolved Time CoV-Risk 05/19/2024 05/19/2024 05/30/2024 1:22 AM EDT CoV-Risk 08/29/2024 08/29/2024 09/09/2024 1:22 AM EST Assessment Noted Time PHQ-2 Depression Total Score: 0 10/05/19 9:38 AM EST documented as of this encounter Care Teams Tearoom Hostess Relationship Specialty Start Date End Date Keiry Au CNP [address] [place] [address] [address] [place] [address] PCP - General Internal Medicine 05/29/21 02/11/23 Keiry Au CNP [address] [place] [address] PCP - General Internal Medicine 02/12/23 03/04/25 Chad Esposito DO [address] [place] [phone] [email or web address] PCP - General Internal Medicine 03/05/25 03/13/25 Keiry Au CNP [address] [place] [address] [email or web address] PCP - General Nurse Practitioner 03/14/25 Keiry Au CNP [address] [place] [address] Primary Care Physician 06/17/17 Laurie Eaton MD [address] [place] [phone] Insurance Assigned Provider 12/04/23 12/03/24 Keiry Au CNP [address] [place] [phone] Insurance Assigned Provider 12/03/24 documented as of this encounter Additional Source Comments The information contained in this document represents components of the legal health record. It is not the complete legal health record.[facility]
--- OUTSIDE RECORDS SUMMARY | 2025-08-19 08:01 | XMS_ITS | Encounter Summary ---
Author Organization [facility] Address [address] [place] [address] Phone Care Team Providers Care Java Developer With Security Clearance Name Role Phone Smiley Saenz MD Unavailable PheKeiry freitas CNP Unavailable [phone] Laurie Eaton MD Unavailable Charlie Aguilar MD Unavailable Laurie Eaton MD Primary Care Provider [phone] PheKeiry freitas CNP Primary Care Provider Laurie Eaton MD Unavailable [phone] PheKeiry freitas CNP Primary Care Provider PheKeiry freitas CNP Unavailable [phone] Chad Esposito DO Primary Care Provider PheKeiry freitas CNP Primary Care Provider Encounter Details Date Type Department Care Team (Late st Contact Info) Description 05/15/2019 Ancillary Orders [facility] [address] [facility] [address] [place] [address] Laurie Eaton MD 14 [facility] [address] [place] [address] Social History Tobacco Use Types Packs/Day Years [...] 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 Date 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 Not on file Not on file documented as of this encounter Plan of Treatment Upcoming Encounters Date Type Department Care Team (Late st Contact Info) Description 11/20/2025 11:10 AM EDT Office Visit [facility] [address] [place] [address] [place] [address] Carla Mercado MD, MPH [address] [place] [address], [address] [place] [address] [email or web address] 12/27/2025 1:00 PM EDT Office Visit [facility] Neurology [facility] [address] [place] [address] [place] [address] Arnaldo Mcdonough MD [address] [place] [address], 2nd [place] [address] [email or web address] documented as of this encounter Visit Diagnoses Not on filedocumented in this encounter Additional Health Concerns Infection Onset Date Last Indicated Resolved Time CoV-Risk 05/19/2024 05/19/2024 05/30/2024 1:22 AM EDT CoV-Risk 08/29/2024 08/29/2024 09/09/2024 1:22 AM EST documented as of this encounter Care Teams Java Developer With Security Clearance Relationship Specialty Start Date End Date Laurie Eaton MD [address] [place] [phone] [email or web address] PCP - General Internal Medicine 06/24/17 05/28/21 Keiry Au CNP [address] [place] [phone] [email or web address] PCP - General Internal Medicine 05/29/21 02/11/23 Keiry Au CNP [address] [place] [phone] [email or web address] PCP - General Internal Medicine 02/12/23 03/04/25 Chad Esposito DO [address] [place] [phone] [email or web address] PCP - General Internal Medicine 03/05/25 03/13/25 Keiry Au CNP [address] [place] [phone] [email or web address] PCP - General Nurse Practitioner 03/14/25 Smiley Saenz MD [address] [place] [phone] [email or web address] Historical LMR Provider 01/10/15 05/28/21 Keiry Au CNP [address] [place] [address] [email or web address] Primary Care Physician 06/17/17 Laurie Eaton MD [address] [place] [address] [place] [phone] [email or web address] Historical LMR Provider 06/17/17 1 Charlie Aguilar MD [address] [place] [address] Historical LMR Provider 06/17/17 Laurie Eaton MD [address] [place] [phone] [email or web address] Insurance Assigned Provider 12/04/23 12/03/24 Keiry Au CNP [address] [place] [phone] [email or web address] Insurance Assigned Provider 12/03/24 documented as of this encounter Additional Source Comments The information contained in this document represents components of the legal health record. It is not the complete legal health record.[facility]
--- OUTSIDE RECORDS SUMMARY | 2025-08-19 08:01 | XMS_ITS | Encounter Summary ---
Author Organization [facility] Address [address] [place] [address] Phone Care Team Providers Care Academic Affairs Specialist Name Role Phone Smiley Saenz MD Unavailable PheKeiry freitas CNP Unavailable [phone] Laurie Eaton MD Unavailable Charlie Aguilar MD Unavailable Laurie Eaton MD Primary Care Provider [phone] PheasantKeiry CNP Primary Care Provider Laurie Eaton MD Unavailable [phone] PheasantKeiry CNP Primary Care Provider PheasantKeiry CNP Unavailable [phone] Chad Esposito DO Primary Care Provider [phone] PheKeiry freitas CNP Primary Care Provider Encounter Details Date Type Department Care Team (Late st Contact Info) Description 05/15/2019 Ancillary Orders [facility] Department [address] [place] [address] Laurie Eaton MD [address] [place] [address] [address] [place] [address] [email or web address] Breast screening Social History Tobacco Use Types [...] 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 Not on file Not on file documented as of this encounter Plan of Treatment Upcoming Encounters Date Type Department Care Team (Late st Contact Info) Description 11/20/2025 11:10 AM EDT Office Visit [facility] [address] [place] [address] Carla Mercado MD, MPH [address] [place] [address], [address] [place] [address] [email or web address] 12/27/2025 1:00 PM EDT Office Visit [facility] [address] [place] [address] Arnaldo Mcdonough MD [address] [place] [address], 2[address] [place] [address] [email or web address] documented as of this encounter Results * BI MAMMOGRAM SCREENING WITH TOMOSYNTHESIS WITH CAD (BILATERAL) (08/10/2019 11:39 AM EST) Anatomical Region Laterality Modality Breast Left, Breast Right, Breast Bilateral Bila teral Mammography 08/10/2019 12:3 4 PM EST Impressions 08/10/2019 12:36 PM EST Stable appearance relative to prior imaging. No findings suggestive of malignancy are seen. BI-RADS CATEGORY: 2 - Benign finding. DENSITY: The breast tissue is heterogeneously dense, an appearance which lowers the sensitivity of mammography. POS - [id number] Narrative 08/10/2019 12:36 PM EST Full-field digital mammography is obtained with computer-aided detection. Comparison with prior imaging from August 09, 2018 is made with older imaging dating back as far as June 29, 2013 also reviewed. There is heterogeneous fibroglandular density evident in the breasts. In addition to 2-D C view imaging, tomosynthesis images are obtained in two projections of each breast. An oval large density in the retroareolar left breast has been unchanged over multiple prior studies. There are vascular calcifications noted.. No dominant soft tissue mass of concern, suspicious cluster of calcifications, significant interval skin changes, or architectural distortion is identified. Procedure Note Catarino Gaytan MD - 08/10/2019 Full-field digital mammography is obtained with computer-aided detection.Comparison with prior imaging from August 09, 2018 is made with olderimaging dating back as far as June 29, 2013 also reviewed. There is heterogeneous fibroglandular density evident in the breasts. Inaddition to 2-D C view imaging, tomosynthesis images are obtained in twoprojections of each breast. An oval large density in the retroareolar left breast has been unchangedover multiple prior studies. There are vascular calcifications noted.. Nodominant soft tissue mass of concern, suspicious cluster ofcalcifications, significant interval skin changes, or architecturaldistortion is identified. IMPRESSION: Stable appearance relative to prior imaging. No findings suggestive ofmalignancy are seen. BI-RADS CATEGORY: 2 - Benign finding. DENSITY: The breast tissue is heterogeneously dense, an appearance whichlowers the sensitivity of mammography. POS - [id number] Laurie Eaton MD IMG MG EXAMS Final Result documented in this encounter Visit Diagnoses Diagnosis Breast screening Breast screening, unspecified Breast screening Breast screening, unspecified documented in this encounter Additional Health Concerns Infection Onset Date Last Indicated Resolved Time CoV-Risk 05/19/2024 05/19/2024 05/30/2024 1:22 AM EDT CoV-Risk 08/29/2024 08/29/2024 09/09/2024 1:22 AM EST documented as of this encounter Care Teams Academic Affairs Specialist Relationship Specialty Start Date End Date Laurie Eaton MD [address] [place] [address] PCP - General Internal Medicine 06/24/17 05/28/21 Keiry Au CNP [address] [place] [address] PCP - General Internal Medicine 05/29/21 02/11/23 Keiry Au CNP [address] [place] [address] PCP - General Internal Medicine 02/12/23 03/04/25 Chad Esposito DO [address] [place] [phone] [email or web address] PCP - General Internal Medicine 03/05/25 03/13/25 Keiry Au CNP [address] [place] [phone] [email or web address] PCP - General Nurse Practitioner 03/14/25 Smiley Saenz MD [address] [place] [address] [email or web address] Historical LMR Provider 01/10/15 05/28/21 Keiry Au CNP [address] [place] [address] [address] [place] [address] Primary Care Physician 06/17/17 Laurie Eaton MD [address] [place] [address] [place] [address] [email or web address] Historical LMR Provider 06/17/17 1 Charlie Aguilar MD [address] [place] [address] Historical LMR Provider 06/17/17 Laurie Eaton MD [address] [place] [address] [email or web address] Insurance Assigned Provider 12/04/23 12/03/24 Keiry Au CNP [address] [place] [phone] Insurance Assigned Provider 12/03/24 documented as of this encounter Additional Source Comments The information contained in this document represents components of the legal health record. It is not the complete legal health record.[facility]
--- OUTSIDE RECORDS SUMMARY | 2025-08-19 08:01 | XMS_ITS | Encounter Summary ---
Author Organization [facility] Address [address] [place] [address] Phone Care Team Providers Care Registered Dental Assistant Rda Name Role Phone Keiry Au CNP Unavailable Keiry Au CNP Primary Care Provider Laurie Eaton MD Unavailable [phone] Keiry Au CNP Primary Care Provider Keiry Au CNP Unavailable Chad Esposito DO Primary Care Provider [phone] Keiry Au CNP Primary Care Provider Encounter Details Date Type Department Care Team (Late st Contact Info) Description 06/17/2021 Procedure Pass [facility] [address] [place] [address] Social History Tobacco Use Types Packs/Day Years [...] 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 [address] [place] [address] Carla Mercado MD, MPH [address] [place] [address], [address] [place] [address] 12/27/2025 1:00 PM EDT Office Visit [facility]rology [facility] [address] [place] [address] [place] [address] Arnaldo Mcdonough MD [address] [place] [address], 2nd [place] [address] [email or web address] documented as of this encounter Visit Diagnoses Not on filedocumented in this encounter Additional Health Concerns Infection Onset Date Last Indicated Resolved Time CoV-Risk 05/19/2024 05/19/2024 05/30/2024 1:22 AM EDT CoV-Risk 08/29/2024 08/29/2024 09/09/2024 1:22 AM EST Assessment Noted Time PHQ-2 Depression Total Score: 0 10/05/19 9:38 AM EST documented as of this encounter Care Teams Registered Dental Assistant Rda Relationship Specialty Start Date End Date Keiry Au CNP [address] [place] [address] [place] [address] PCP - General Internal Medicine 05/29/21 02/11/23 Keiry Au CNP [address] [place] [address] PCP - General Internal Medicine 02/12/23 03/04/25 Chad Esposito DO [address] [place] [phone] [email or web address] PCP - General Internal Medicine 03/05/25 03/13/25 Keiry Au CNP [address] [place] [address] PCP - General Nurse Practitioner 03/14/25 Keiry Au CNP [address] [place] [address] Primary Care Physician 06/17/17 Laurie Eaton MD [address] [place] [phone] Insurance Assigned Provider 12/04/23 12/03/24 Keiry Au CNP [address] [place] [phone] Insurance Assigned Provider 12/03/24 documented as of this encounter Additional Source Comments The information contained in this document represents components of the legal health record. It is not the complete legal health record.[facility]
--- OUTSIDE RECORDS SUMMARY | 2025-08-19 08:01 | XMS_ITS | Encounter Summary ---
Author Organization [facility] Address [address] [place] [address] Phone Care Team Providers Care Traffic Counter Name Role Phone Keiry Au CNP Unavailable Laurie Eaton MD Unavailable Keiry Au CNP Primary Care Provider Keiry Au CNP Unavailable [phone] Chad Esposito DO Primary Care Provider Keiry Au CNP Primary Care Provider Encounter Details Date Type Department Care Team (Late st Contact Info) Description 06/09/2024 Procedure Pass [facility], [facility] [address] [place] [address] Social History Tobacco Use Types Packs/Day Years [...] as food, clothing, or medical care? No 05/19/2024 In the past 12 months have y ou been in a relationship with a person who hurts, threatens, or tries to control you? No 05/19/2024 Are you denied basic needs s uch as food, clothing, or medical care? No 05/19/2024 In the past 12 months have y ou been in a relationship with a person who hurts, threatens, or tries to control you? 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 Not on file Not on file documented as of this encounter Plan of Treatment Upcoming Encounters Date Type Department Care Team (Late st Contact Info) Description 11/20/2025 11:10 AM EDT Office Visit [facility] [address] [place] [address] [place] [address] Carla Mercado MD, MPH [address] [place] [address], [address] [place] [address] 12/27/2025 1:00 PM EDT Office Visit [facility] [address] [place] [address] [place] [address] Arnaldo Mcdonough MD [address] [place] [address], 2[address] [place] [address] documented as of this encounter Visit Diagnoses Not on filedocumented in this encounter Additional Health Concerns Infection Onset Date Last Indicated Resolved Time CoV-Risk 08/29/2024 08/29/2024 09/09/2024 1:22 AM EST Assessment Noted Time PHQ-2 Depression Total Score: 2 10/06/19 1:26 PM EST documented as of this encounter Care Teams Traffic Counter Relationship Specialty Start Date End Date Keiry Au CNP [address] [place] [address] [place] [address] [email or web address] PCP - General Internal Medicine 02/12/23 03/04/25 Chad Esposito DO [address] [place] [phone] [email or web address] PCP - General Internal Medicine 03/05/25 03/13/25 Keiry Au CNP [address] [place] [address] PCP - General Nurse Practitioner 03/14/25 Keiry Au CNP [address] [place] [address] Primary Care Physician 06/17/17 Laurie Eaton MD [address] [place] [address] [email or web address] Insurance Assigned Provider 12/04/23 12/03/24 Keiry Au CNP [address] [place] [address] [email or web address] Insurance Assigned Provider 12/03/24 documented as of this encounter Additional Source Comments The information contained in this document represents components of the legal health record. It is not the complete legal health record.[facility]
== END 2025-08-19 07:57 | disposition home or self-care (01) ==
LOC: HO.MRI 07:56
PROVIDERS: PCP Nurse Practitioner Adult Health; Visit Provider Physician Assistant
DX: M54.9 Dorsalgia, unspecified (principal); M79.605 Pain in left leg
CPT/HCPCS: 72148